=== PATIENT | male | born 1940 | race Caucasian/White ===

== ENCOUNTER → 2018-02-21 | Outpatient (CLI) | payer OTHER ==
--- NOTE | 2018-02-21 13:52 | FL ---
ESOPHOGRAM. HISTORY: Dysphagia Esophagram was performed per the air contrast technique. The patient swallowed barium and effervesce nt crystals without difficulty or delay. Esophageal peristalsis and motility appear to be within normal limits. There is no evidence for filling defect, mass or diverticulum. Small sliding-type hiatal hernia noted. Subsequently single contrast cervical esophagram was performed which fails demonstrate evidence for a spiration penetration or mass. IMPRESSION: Small sliding-type hiatal hernia noted.
== END | disposition home or self-care (01) ==
LOC: RADFLWHC 10:56
PROVIDERS: ATTEND Otolaryngology
DX: K44.9 Diaphragmatic hernia without obstruction or gangrene (principal)
CPT/HCPCS: 74220

== ENCOUNTER 2021-03-07 17:15 | Inpatient (IN) | payer OTHER, MEDICARE ==
[2021-03-07] MEDS ORDERED: LORazepam 2 MG/ML INJ IV PRN ×2 (17:51)
[2021-03-07] MEDS ORDERED: THIAMINE 100 MG/ML 2 ML VIAL IM STA (17:51)
[2021-03-07] MEDS ORDERED: NALOXONE 0.4 MG/ML 1 ML VIAL IV PRN (18:40)
--- NOTE | 2021-03-07 18:46 | ED ---
General Adult HPI - General Chief complaint: Extremity Problem,Nontraumatic Stated complaint: generalized swelling Time Seen by Provider: 03/07/21 17:40 Source: patient, EMS, RN notes reviewed, old records reviewed Mode of arrival: EMS Limitations: no limitations - History of Present Illness Initial comments: 80-year-old male transferred from outside facility with peripheral edema, scrotal edema abnormal laboratory testing. Patient has been living in his bed for the past one year. He drinks a proximally 6 ounces of vodka daily. He had presented once about 6 months ago with peripheral edema and was prescribed a short course of Lasix. He does not have chest pain. No dyspnea. He had presented to outside hospital with complaints of lower extremity edema and scrotal edema which is been present for the past one year. - Related Data Allergies Allergy/AdvReac Type Severity Reaction Status Date / Time No Known Allergies Allergy Verified 03/07/21 17:27 Review of Systems ROS Statement: Those systems with pertinent positive or pertinent negative responses have been documented in the HPI. ROS Other: All systems not noted in ROS Statement are negative. Past Medical History Past Medical History: Asthma History of Any Multi-Drug Resistant Organisms: None Reported Past Surgical History: No Surgical Hx Reported Past Psychological History: ADD/ADHD Smoking Status: Never smoker Past Alcohol Use History: Occasional Past Drug Use History: Marijuana General Exam Limitations: no limitations General appearance: alert, in no apparent distress Head exam: Present: atraumatic, normocephalic Eye exam: Present: normal appearance, PERRL ENT exam: Present: normal exam Neck exam: Present: normal inspection. Absent: tenderness, meningismus Respiratory exam: Present: normal lung sounds bilaterally. Absent: respiratory distress, wheezes, rales Cardiovascular Exam: Present: regular rate, normal rhythm GI/Abdominal exam: Present: distended. Absent: tenderness, guarding, rebound exam: Present: scrotal swelling Extremities exam: Present: pedal edema (3+ ) Neurological exam: Present: alert, oriented X3, CN II-XII intact. Absent: motor sensory deficit Skin exam: Present: warm, dry, intact Course Vital Signs 03/07/21 17:17 Temperature 99.0 F Pulse Rate 84 Respiratory 86 H Rate Blood Pressure 157/98 O2 Sat by Pulse 96 Oximetry Medical Decision Making - Medical Decision Making 80-year-old male sent for diuresis, possible social work consult for poor living conditions. He did have an elevated troponin without active chest pain. He was also sent for trended enzymes. He has a hemoglobin 10.9, sodium 142, potassium 4.5. His albumin and calcium were both low. He is given IV Lasix as well as thiamine. He's placed on Ativan according to withdrawal symptoms. He is admitted to Dr. ann for further evaluation and treatment. Repeat laboratory testing has been ordered. Disposition Clinical Impression: Failure to thrive in adult, Anasarca Disposition: ADMITTED IP TO THIS HOSP Condition: Stable Is patient prescribed a controlled substance at d/c from ED?: No Referrals: [facility] [Primary Care Provider] - 1-2 days Decision to Admit Reason: Admit from EC Decision Date: 03/07/21 Decision Time: 18:46
[2021-03-07 19:39] LABS: Basophils % (A) 0 %; Eosinophils % (A) 0 %; HCT 34.6 % (39.0-53.0); HGB 11.3 gm/dL (13.0-17.5); Lymphocytes # (A) 0.6 k/uL (1.0-4.8); Lymphocytes % (A) 9 %; MCHC 32.7 g/dL (31.0-37.0); Macrocytosis Marked; Mean Platelet Volume 9.1; Monocytes # (A) 0.6 k/uL (0-1.0); Monocytes % (A) 9 %; Neutrophils # (A) 4.9 k/uL (1.3-7.7); Neutrophils % (A) 79 %; Platelet Count 142 k/uL (150-450); RBC 3.15 m/uL (4.30-5.90); RDW 14.2 % (11.5-15.5); WBC 6.2 k/uL (3.8-10.6)
[2021-03-07 19:51] LABS: Albumin 2.4 g/dL (3.5-5.0); Calcium 7.4 mg/dL (8.4-10.2); Magnesium 1.8 mg/dL (1.6-2.3); Potassium 4.7 mmol/L (3.5-5.1); Total Bilirubin 1.2 mg/dL (0.2-1.3); Total Protein 5.3 g/dL (6.3-8.2)
[2021-03-07 19:52] LABS: INR 1.6 (<1.2); Prothrombin Time 16.1 sec (9.0-12.0)
[2021-03-07] MEDS: FUROSEMIDE 10 MG/ML 4 ML VIAL IV SCH (20:09)
[2021-03-07 20:18] LABS: Poikilocytosis (M) Present
[2021-03-07] MEDS: ALBUTEROL NEBULIZED 2.5 MG/3 ML INHALATION PRN (23:15)
[2021-03-07] MEDS: HEPARIN SODIUM,PORCINE/PF 5,000 UNIT/0.5 ML SYRINGE SQ SCH (23:58)
[2021-03-08 02:47] LABS: Appearance,Urine Clear (Clear); Bacteria,Urine Rare /hpf; Bilirubin,Urine Negative (Negative); Blood,Urine Large (Negative); Cellular Casts,Urine 1 /lpf (0); Color,Urine Yellow; Glucose,Urine (UA) Negative (Negative); Hyaline Casts,Urine 12 /lpf (0-2); Ketones,Urine Negative (Negative); Leukocyte Esterase,Urine Trace (Negative); Mucus,Urine Rare /hpf; Nitrite,Urine Negative (Negative); Protein,Urine Negative (Negative); RBC,Urine 40 /hpf (0-5); Specific Gravity,Urine 1.007 (1.001-1.035); Urobilinogen,Urine <2.0 mg/dL (<2.0); WBC,Urine 3 /hpf (0-5)
[2021-03-08] MEDS: LORazepam 2 MG/ML INJ IV PRN (05:09)
[2021-03-08 06:29] LABS: MCH 35.9 pg (25.0-35.0); MCHC 32.5 g/dL (31.0-37.0); MCV 110.4 fL (80.0-100.0); Macrocytosis Marked; Platelet Count 105 k/uL (150-450); RBC 2.63 m/uL (4.30-5.90); RDW 14.2 % (11.5-15.5); WBC 3.5 k/uL (3.8-10.6)
[2021-03-08 06:31] LABS: HGB 9.4 gm/dL (13.0-17.5)
[2021-03-08 06:54] LABS: Band Neutrophils % 1 %; Lymphocytes # (M) 0.39 k/uL (1.0-4.8); Neutrophils % (M) 71 %; Nucleated Red Blood Cells 0 /100 WBC (0-0); Total Cells Counted 100
[2021-03-08] MEDS: ALBUTEROL NEBULIZED 2.5 MG/3 ML INHALATION PRN (08:27)
[2021-03-08] MEDS: THIAMINE 100 MG TAB PO SCH ×2 (08:35→17:26)
[2021-03-08] MEDS: FAMOTIDINE 20 MG/2 ML VIAL IV SCH ×2 (08:35→20:21)
[2021-03-08] MEDS: FUROSEMIDE 10 MG/ML 4 ML VIAL IV SCH ×2 (08:37→20:21)
[2021-03-08] MEDS: HEPARIN SODIUM,PORCINE/PF 5,000 UNIT/0.5 ML SYRINGE SQ SCH ×2 (08:37→20:20)
--- NOTE | 2021-03-08 09:23 | P.HPIM ---
History of Present Illness This is a pleasant 80 years old male with past medical history of asthma Patient was transferred from [facility] for bilateral lower extremity swelling and edema and scrotal and penile swelling as well. Patient states that he presents because of diarrhea and generalized swelling including the scrotum which has been going on for the last 2 months but he could not specify what prompted him to come to emergency room today. Patient is bedbound for about a year, nonweightbearing, he told me last time he walked about 6 months ago. Also he does not follow up with [facility] and last Several Months Ago. that's Why Mainly He Eats Juices and liquids.. He lost weight 190 down to 150. He denies smoking or illicit drugs, he drinks 4 cups of liquor every day H cup about 4 ounces He denies depression or suicidal thoughts. Vitals are stable, he is slightly tachycardic with heart rate 98-101. Breathing rate 18, blood pressure 153/101. Oxygen saturation 96% on room air Labs showing WBC of 3.5, hemoglobin 11.3 and 9.4, platelet count 142 and 105, with some evidence of mild pancytopenia BMP is unremarkable. creatinine is 1.0. Troponin is slightly elevated at 0.05 and 0.05. ALT is 56, AST 176. Bilirubin is normal at 1.2. ProBNP is slightly elevated at 35-60. Urine analysis showing RBCs of 40, WBC of 3, negative nitrite and trace leukocyte esterase. On reviewing the records from [facility] he has WBC of 4.8, hemoglobin 10.9, platelets 156. 2, potassium 4.5. BUN is 10 and creatinine 1.0, glucose is 124. ALT 60 and ASD more elevated at 190. Bilirubin normal at 1.1. ProBNP is 3270 and troponin 0.05. Normal TSH at 1.5. Urine analysis showing 3+ blood in urine. Chest x-ray showing no acute process but limited quality. EKG shows sinus tachycardia and 105, poor R-wave progression and ST depression on aVL, QTC is 466. Review of Systems CONSTITUTIONAL: No fever, no malaise, no fatigue. HEENT: No recent visual problems or hearing problems. Denied any sore throat. CARDIOVASCULAR: No orthopnea, PND, no palpitations, no syncope. PULMONARY: No shortness of breath, no cough, no hemoptysis. GASTROINTESTINAL: no nausea, no vomiting, no abdominal pain. Normoactive bowel sounds. NEUROLOGICAL: No headaches, no weakness, no numbness. HEMATOLOGICAL: Denies any bleeding or petechiae. GENITOURINARY: Denies any burning micturition, frequency, or urgency. MUSCULOSKELETAL/RHEUMATOLOGICAL: Denies any joint pain, swelling, or any muscle pain. ENDOCRINE: Denies any polyuria or polydipsia. Past Medical History Past Medical History: Asthma History of Any Multi-Drug Resistant Organisms: None Reported Past Surgical History: No Surgical Hx Reported Past Psychological History: ADD/ADHD Smoking Status: Never smoker Past Alcohol Use History: Occasional Past Drug Use History: Marijuana Medications and Allergies Home Medications Medication Instructions Recorded Confirmed Type Albuterol Inhaler [Ventolin Hfa 1 puff INHALATION RT-QID PRN 03/07/21 03/07/21 History Inhaler] diphenhydrAMINE [Benadryl] 25 mg PO DAILY PRN 03/07/21 03/07/21 History guaiFENesin [guaiFENesin Oral 1 dose PO DAILY PRN 03/07/21 03/07/21 History Solution] Allergies Allergy/AdvReac Type Severity Reaction Status Date / Time No Known Allergies Allergy Verified 03/07/21 19:24 Physical Exam Vitals: Vital Signs Temp Pulse Resp BP Pulse Ox 03/08/21 02:00 98 18 153/101 96 03/07/21 23:35 101 H 18 147/82 98 03/07/21 23:25 100 03/07/21 23:16 99 03/07/21 23:00 102 H 18 153/88 100 03/07/21 18:26 108 H 18 161/79 96 03/07/21 17:17 99.0 F 84 86 H 157/98 96 Intake and Output 03/07/21 03/08/21 03/08/21 22:59 06:59 14:59 Other: Weight 68.039 kg -GENERAL: The patient is alert and oriented x3, not in any acute distress. Slow to respond to questions. Thin built with multiple nourished HEENT: Pupils are round and equally reacting to light. EOMI. No scleral icterus. No conjunctival pallor. Normocephalic, atraumatic. No pharyngeal erythema. No thyromegaly. CARDIOVASCULAR: S1 and S2 present. No murmurs, rubs, or gallops. PULMONARY: Chest is clear to auscultation, no wheezing or crackles. -ABDOMEN: Soft, nontender, distended, normoactive bowel sounds. No palpable organomegaly. MUSCULOSKELETAL: No joint swelling or deformity. -EXTREMITIES: No cyanosis, clubbing,. Bilateral patellar leg edema NEUROLOGICAL: Gross neurological examination did not reveal any focal deficits. SKIN: No rashes. No petechiae Results CBC & Chem 7: 03/08/21 05:31 03/07/21 19:32 Labs: Abnormal Lab Results - Last 24 Hours (Table) 03/07/21 03/07/21 03/07/21 Range/Units 19:32 19:32 19:32 WBC (3.8-10.6) k/uL RBC 3.15 L (4.30-5.90) m/uL Hgb 11.3 L (13.0-17.5) gm/dL Hct 34.6 L (39.0-53.0) % MCV 110.0 H (80.0-100.0) fL MCH 36.0 H (25.0-35.0) pg Plt Count 142 L (150-450) k/uL Lymphocytes # 0.6 L (1.0-4.8) k/uL Lymphocytes # (Manual) (1.0-4.8) k/uL Macrocytosis Marked A PT 16.1 H (9.0-12.0) sec INR 1.6 H (<1.2) Chloride 110 H (98-107) mmol/L Glucose 137 H (74-99) mg/dL Calcium 7.4 L (8.4-10.2) mg/dL AST 176 H (17-59) U/L ALT 56 H (4-49) U/L Troponin I (0.000-0.034) ng/mL Total Protein 5.3 L (6.3-8.2) g/dL Albumin 2.4 L (3.5-5.0) g/dL Urine Blood (Negative) Ur Leukocyte Esterase (Negative) Urine RBC (0-5) /hpf Urine Bacteria (None) /hpf Hyaline Casts (0-2) /lpf Urine Mucus (None) /hpf 03/07/21 03/08/21 03/08/21 Range/Units 19:32 01:03 02:28 WBC (3.8-10.6) k/uL RBC (4.30-5.90) m/uL Hgb (13.0-17.5) gm/dL Hct (39.0-53.0) % MCV (80.0-100.0) fL MCH (25.0-35.0) pg Plt Count (150-450) k/uL Lymphocytes # (1.0-4.8) k/uL Lymphocytes # (Manual) (1.0-4.8) k/uL Macrocytosis PT (9.0-12.0) sec INR (<1.2) Chloride (98-107) mmol/L Glucose (74-99) mg/dL Calcium (8.4-10.2) mg/dL AST (17-59) U/L ALT (4-49) U/L Troponin I 0.052 H* 0.058 H* (0.000-0.034) ng/mL Total Protein (6.3-8.2) g/dL Albumin (3.5-5.0) g/dL Urine Blood Large H (Negative) Ur Leukocyte Esterase Trace H (Negative) Urine RBC 40 H (0-5) /hpf Urine Bacteria Rare H (None) /hpf Hyaline Casts 12 H (0-2) /lpf Urine Mucus Rare H (None) /hpf 03/08/21 Range/Units 05:31 WBC 3.5 L (3.8-10.6) k/uL RBC 2.63 L (4.30-5.90) m/uL Hgb 9.4 L D (13.0-17.5) gm/dL Hct 29.0 L (39.0-53.0) % MCV 110.4 H (80.0-100.0) fL MCH 35.9 H (25.0-35.0) pg Plt Count 105 L (150-450) k/uL Lymphocytes # (1.0-4.8) k/uL Lymphocytes # (Manual) 0.39 L (1.0-4.8) k/uL Macrocytosis Marked A PT (9.0-12.0) sec INR (<1.2) Chloride (98-107) mmol/L Glucose (74-99) mg/dL Calcium (8.4-10.2) mg/dL AST (17-59) U/L ALT (4-49) U/L Troponin I (0.000-0.034) ng/mL Total Protein (6.3-8.2) g/dL Albumin (3.5-5.0) g/dL Urine Blood (Negative) Ur Leukocyte Esterase (Negative) Urine RBC (0-5) /hpf Urine Bacteria (None) /hpf Hyaline Casts (0-2) /lpf Urine Mucus (None) /hpf Assessment and Plan Assessment: - Anasarca, 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 Neurologic CHF - alcohol abuse at-risk of alcohol withdrawal - Mild hematuria - Elevated troponin - History of asthma, not an active issue - Hypertension - Mild pancytopenia, mostly secondary to alcohol affect - Mildly elevated liver enzymes, mostly secondary to alcohol affect, with ASD more than ALT - Malnutrition - Chronically bedbound Plan: This is a pleasant 80 years old male who presents with anasarca, alcohol abuse Continue with CIWA protocol and came in Lasix 40 mg twice daily . Fluid restriction 1200 mL per day We will check for C. diff, stool studies check vitamin B12 and folate. hemoglobin A1c We'll check abdominal ultrasound of her kidney, liver and possible ascites Check hepatitis panel Speech Therapist evaluation dietary consult for malnutrition Labs and medication were reviewed.. Continue same treatment. Continue with symptomatic treatment. Resume home medication. Monitor lytes and vitals. DVT and GI prophylaxis. Further recommendations depends on the clinical course of the patient DVT prophylaxis: Subcutaneous heparin GI Prophylaxis: Pepcid PT/OT: Pending Prognosis is guarded
[2021-03-08 09:44] LABS: INR 1.81 (0.90-1.11)
--- NOTE | 2021-03-08 10:52 | US ---
EXAMINATION TYPE: US abd limited kidneys/bladder DATE OF EXAM: 03/08/2021 COMPARISON: NONE CLINICAL HISTORY: liver , kid and possible ascites . EXAM MEASUREMENTS: Liver Length: 19 cm Gallbladder Wall: 0.8 cm CBD: 0.6 cm Right Kidney: 10.4 x 5.0 x 5.2 cm Left Kidney: 11.5 x 5.2 x 5.2 cm Pancreas: Obscured by bowel gas Liver: attenuating,measures large, somewhat limited visualization, multiple cysts largest measuring 2.8 x 2.5 x 3.3cm Gallbladder: thick edematous wall, no stones seen, limited views, anechoic area adjacent to GB, poss ible septated cyst vs other etiology CBD: wnl Right Kidney: wnl Left Kidney: cysts, largest measuring 1.9 x 2.4 x 1.7cm Bladder: not fully distended, limited views Mild ascites. IMPRESSION: 1. Hepatomegaly with underlying hepatic steatosis. Hepatic cysts noted as well. 2. Thick edematous gallbladder of uncertain etiology. 3. Mild ascites.
--- NOTE | 2021-03-08 10:57 | ECHOF ---
Referral Reason:Rule out heart disease MEASUREMENTS -------- HEIGHT: 180.3 cm WEIGHT: 68.0 kg BP: MV E Jose: 0.47 m/s MV DecT: 195 ms MV A Jose: 0.28 m/s MV E/A Ratio: 1.72 RAP: 5.00 mmHg RVSP: 19.79 mmHg FINDINGS -------- This was a technically difficult study with suboptimal views. Limited Study Overall left ventricular systolic function is low-normal with, an EF between 50 - 55 %. Right side appears enlarged. The left atrium was not well visualized. The right atrium was not well visualized. Lumason used The aortic valve was not well visualized. The mitral valve was not well visualized. The tricuspid valve was not well visualized. The pulmonic valve was not well visualized. There is a small, generalized pericardial effusion present. CONCLUSIONS -------- 1. Limited Study 2. Overall left ventricular systolic function is low-normal with, an EF between 50 - 55 %. 3. Right side appears enlarged. 4. There is a small, generalized pericardial effusion present. ZIPPER IRONER: Radha Cadena, [facility]
--- NOTE | 2021-03-08 11:06 | US ---
EXAMINATION TYPE: US venous doppler duplex LE BI DATE OF EXAM: 03/08/2021 10:29 AM COMPARISON: NONE CLINICAL HISTORY: leg swelling. SIDE PERFORMED: Bilateral TECHNIQUE: The lower extremity deep venous system is examined utilizing real time linear array sonog broderick with graded compression, doppler sonography and color-flow sonography. VESSELS IMAGED: Common Femoral Vein Deep Femoral Vein Greater Saphenous Vein * Femoral Vein Popliteal Vein Small Saphenous Vein * Proximal Calf Veins (* superficial vessels) Right Leg: Appears negative for DVT, extensive swelling. Left Leg: Appears negative for DVT, extensive swelling. IMPRESSION: No evidence of DVT
[2021-03-08 11:36] LABS: African American GFR (CKD) 83.2 (60.0-200.0); Albumin 2.1 g/dL (3.80-4.90); Anion Gap 4.2 mmol/L (4.00-12.00); Bilirubin, Conjugated 0.8 mg/dL (0.20-0.40); Bilirubin,Unconjugated 0.3 mg/dL; Calcium 6.8 mg/dL (8.7-10.3); Carbon Dioxide 26.8 mmol/L (21.6-31.8); Globulin 2.1 g/dL (1.6-3.3); Magnesium 1.6 mg/dL (1.5-2.4); Non-African American GFR(CKD) 71.8 (60.0-200.0); Potassium 4.3 mmol/L (3.5-5.5); Total Bilirubin 1.1 mg/dL (0.3-1.2); Total Protein 4.2 g/dL (6.2-8.2)
--- NOTE | 2021-03-08 12:05 | CONS ---
CONSULTATION CHIEF COMPLAINT: Leg edema. This is a 80-year-old gentleman who has not been eating very well and has problems swallowing food. He came into hospital complaining of bilateral leg edema. The patient initially presented to an outside hospital and has been transferred here. He has extensive edema, including the bilateral lower extremities and the scrotum. There is history of alcohol abuse and physically he is very inactive. He denies any chest pain. He denies any difficulty in breathing, palpitations. There is no prior history of coronary artery disease or congestive heart failure. There is no prior history of hypertension, diabetes, dyslipidemia. There is history of COPD. He is a smoker. At the time of my evaluation he appears comfortable, has covered his face with his shirt and not particularly communicative. There are NO KNOWN DRUG ALLERGIES. Medications include Benadryl, Ventolin and guaifenesin. FAMILY HISTORY: Negative for premature coronary artery disease. SOCIAL HISTORY: Negative for current smoking, EtOH abuse or drug abuse. REVIEW OF SYSTEMS: HEENT is unremarkable. CARDIAC: As described above. RESPIRATORY: As described above. GI: Negative. GENITOURINARY: Negative. ALLERGY/IMMUNOLOGY: Negative. SKIN: Negative. MUSCULOSKELETAL: Significant for arthritis. PSYCHOSOCIAL: Negative. ENDOCRINE: Negative. DERMATOLOGY: Negative. CONSTITUTIONAL: Negative. ONCOLOGICAL: Negative. CLINICAL BIOSTATISTICS DIRECTOR: Negative. Rest of the system review is not relevant. PHYSICAL EXAMINATION: He is afebrile. Heart rate is 90 beats per minute. Blood pressure is 120/76, respiratory rate 16. There is no jugular venous distention. Carotid upstroke is normal. There is no bruit. Chest exam reveals diminished air entry at the bases. I do not hear any crackles or rhonchi. Heart exam reveals first and second heart sounds, systolic murmur at the left lower sternal border. Abdomen is soft. Examination of extremities reveals bilateral 3+ pitting edema. LABS: Labs show that the hemoglobin is low at 9.4. INR is 1.6. Potassium is 4.7. Creatinine is 1. Troponins are mildly elevated at 0.05 and 0.05 without any definite pattern to them and BNP is elevated at 3560. His UA shows large amount of blood, nitrite negative. There are no WBCs. Urine protein is negative. Serum albumin is low at 2.4. ASSESSMENT: Generalized anasarca, probably due to a combination of problems, including hypoalbuminemia and possible congestive heart failure of undetermined etiology. He has coagulopathy probably related to poor nutrition, and the mild troponin elevation is of no clear clinical significance. He did not have a myocardial infarction of any kind. I do not have an EKG in the system. I am going to obtain one. PLAN: I am going to obtain a 2D echo to assess his LV function and wall motion, treat the patient with IV diuretic and decide on further course of action based on how he responds to therapy and what the echo shows. MMRUTHANNL / IJN: [id number] /
[2021-03-08 17:32] LABS: Hemoglobin A1C 4.3 % (4.0-6.0)
[2021-03-08 17:37] LABS: Hepatitis A Antibody IgM Non-Reactive (Non-Reactive); Hepatitis B Core IgM Non-Reactive (Non-Reactive); Hepatitis B Surface Antigen Non-Reactive (Non-Reactive); Hepatitis C IgG Antibody Non-Reactive (Non-Reactive)
--- NOTE | 2021-03-09 00:10 | XR ---
EXAMINATION TYPE: XR chest 1V DATE OF EXAM: 03/08/2021 COMPARISON: 03/07/2021 HISTORY: Short of breath TECHNIQUE: Single view FINDINGS: There is no heart failure nor confluent pneumonic infiltrate. Costophrenic angles are clear heart size is normal. There are no hilar masses. Bony thorax appears intact. There is old left clavi nyla probably healed fracture. IMPRESSION: No active cardiopulmonary disease. Normal heart. No change compared to yesterday.
[2021-03-09 00:20] LABS: Appearance,Urine Clear (Clear); Bilirubin,Urine Negative (Negative); Blood,Urine Moderate (Negative); Color,Urine Light Yellow; Glucose,Urine (UA) Negative (Negative); Hyaline Casts,Urine 46 /lpf (0-2); Ketones,Urine Negative (Negative); Leukocyte Esterase,Urine Negative (Negative); Mucus,Urine Rare /hpf; Nitrite,Urine Negative (Negative); Protein,Urine Negative (Negative); RBC,Urine 20 /hpf (0-5); Specific Gravity,Urine 1.006 (1.001-1.035); Urobilinogen,Urine <2.0 mg/dL (<2.0); WBC,Urine 1 /hpf (0-5)
[2021-03-09 06:32] LABS: Basophils % (A) 1 %; Eosinophils # (A) 0.1 k/uL (0-0.7); Eosinophils % (A) 4 %; HCT 26.4 % (39.0-53.0); HGB 8.7 gm/dL (13.0-17.5); Lymphocytes # (A) 0.5 k/uL (1.0-4.8); Lymphocytes % (A) 22 %; MCH 36.6 pg (25.0-35.0); MCV 110.6 fL (80.0-100.0); Macrocytosis Marked; Mean Platelet Volume 8.7; Monocytes # (A) 0.2 k/uL (0-1.0); Monocytes % (A) 10 %; Neutrophils # (A) 1.5 k/uL (1.3-7.7); Neutrophils % (A) 61 %; RBC 2.39 m/uL (4.30-5.90); RDW 14.2 % (11.5-15.5); WBC 2.4 k/uL (3.8-10.6)
[2021-03-09 08:31] LABS: Platelet Count 87 k/uL (150-450)
[2021-03-09] MEDS: FAMOTIDINE 20 MG/2 ML VIAL IV SCH ×2 (08:32→21:22)
[2021-03-09] MEDS: FUROSEMIDE 10 MG/ML 4 ML VIAL IV SCH ×2 (08:32→21:21)
[2021-03-09] MEDS: HEPARIN SODIUM,PORCINE/PF 5,000 UNIT/0.5 ML SYRINGE SQ SCH ×2 (08:32→21:22)
[2021-03-09] MEDS: THIAMINE 100 MG TAB PO SCH ×2 (08:32→17:53)
--- NOTE | 2021-03-09 09:04 | CDI ---
Documentation Clarification Form Date: 03/09/2021 09:01:26 AM From: Rebecca Raygoza RN, CCDS Admit Date: 03/07/2021 06:40:00 PM Patient Name: Jg Morrison Visit Number: [id number] ATTENTION: The Clinical Documentation Specialists (CDI) and [facility] Coding Staff appreciate your assistance in clarifying documentation. Please respond to the clarification below the line at the bottom and electronically sign. The CDI & [facility] Coding staff will review the response and follow-up if needed. Please note: Queries are made part of the Legal Health Record. If you have any questions, please contact the author of this message via ITS. Dr. Santana E Pat Malnutrition is documented in the 03/08 H&P. Additional clarification regarding the severity of malnutrition is requested. History/Risk Factors: ETOH, Smoker, COPD, ADD/ADHD Clinical Indicators: Current BMI: 21.5 Weight Loss: "He lost weight 190 down to 150." Loss of muscle mass: malnutrition, chronically bedbound" Fluid accumulation: generalized anasarca secondary the ETOH cirrhosis 03/07 ED Clinical Impression: Failure to thrive in an adult" 03/08 Cardiology Consult: "Generalized anasarca, probably due to a combination of problems, including hypoalbuminemia and possible congestive heart failure of undetermined etiology. He has coagulopathy probably related to poor nutrition, and the mild troponin elevation is of no clear clinical significance. He did not have a myocardial infarction of any kind." RD Consult Assessment: consult in place- not yet completed. Treatment: Dietary Consult Dysphagia Pureed diet Lab monitoring: Am Daily Please clarify the type of malnutrition, if known: [ ] Mild Protein-Calorie Malnutrition [ ] Moderate Protein-Calorie Malnutrition [ ] Severe Protein-Calorie Malnutrition [ ] Other condition, please specify [ ] Unable to Determine (Template Last Revised: August 2020) Severe Protein-Calorie Malnutrition MTDD
--- NOTE | 2021-03-09 09:12 | CDI ---
Documentation Clarification Form Date: 03/09/2021 09:04:24 AM From: Rebecca Raygoza RN, CCDS Admit Date: 03/07/2021 06:40:00 PM Patient Name: Jg Morrison Visit Number: [id number] ATTENTION: The Clinical Documentation Specialists (CDI) and [facility] Coding Staff appreciate your assistance in clarifying documentation. Please respond to the clarification below the line at the bottom and electronically sign. The CDI & [facility] Coding staff will review the response and follow-up if needed. Please note: Queries are made part of the Legal Health Record. If you have any questions, please contact the author of this message via ITS. Dr. Santana E Sheet Your patient has the documented diagnosis of unspecified CHF in the 03/08 H&P. Additional information regarding the type & acuity of CHF is requested. History/Risk Factors: Smoker, ETOH, COPD, ETOH Liver Cirrhosis, Pancytopenia, Malnutrition Clinical Indicators: 03/07 1717 Admission VS/Pulse OX: Temp 99, HR 84, RR 86, B/P 157/98, spo2 96% RA 03/08 BNP: 3560 03/08 Echocardiogram Results: EF 50-55%, right side enlarged 03/09 Chest X Ray: "No active cardiopulmonary disease. Normal heart. No change compared to yesterday." Treatment: Lasix 40 mg IVP Q 12 hrs. In your professional opinion, can you please clarify the acuity and type of CHF if known? [ ] Acute Diastolic Heart Failure (preserved EF) [ ] Chronic Diastolic Heart Failure (preserved EF) [ ] Acute on Chronic Diastolic Heart Failure (preserved EF) [ ] Acute Systolic & Diastolic Heart Failure [ ] Chronic Systolic & Diastolic Heart Failure [ ] Acute on Chronic Heart Failure Systolic & Diastolic Heart Failure [ ] Other, please specify [ ] Unable to determine (Template Last Revised: August 2020) no chf MTDD
[2021-03-09 10:07] LABS: African American GFR (CKD) 74.1 (60.0-200.0); Albumin 1.9 g/dL (3.80-4.90); Albumin/Globulin Ratio 0.95 (1.60-3.17); Anion Gap 3.2 mmol/L (4.00-12.00); BUN/Creat Ratio 11.82 Ratio (12.00-20.00); Calcium 6.7 mg/dL (8.7-10.3); Carbon Dioxide 26.8 mmol/L (21.6-31.8); Magnesium 1.6 mg/dL (1.5-2.4); Potassium 4.3 mmol/L (3.5-5.5); Total Bilirubin 0.9 mg/dL (0.3-1.2); Total Protein 3.9 g/dL (6.2-8.2)
[2021-03-09] MEDS ORDERED: PERMETHRIN 5% CREAM 60 GM TUBE TOPICAL ONE (11:25)
[2021-03-09] MEDS ORDERED: diphenhydrAMINE 25 MG CAP PO PRN (11:27)
--- NOTE | 2021-03-09 12:03 | P.PN ---
Subjective Progress Note Date: 03/09/21 HISTORY OF PRESENT ILLNESS: Patient examined this morning at the bedside. Patient is sitting up in the chair. He denies chest pain or pressure. He reports improvement in his shortn ess of breath. He reports improvement in his lower extremity edema but continues to have scrotal edema that he says is unchanged from yesterday. He remains on IV Lasix 40 mg every 12 hours. Echocardiogram completed revealed ejection fraction 50-55%. Small generalized pericardial effusion noted. PHYSICAL EXAM: VITAL SIGNS: Reviewed. GENERAL: Well-developed in no acute distress. NECK: Supple. No JVD or thyromegaly LUNGS: Respirations even and unlabored. Lungs diminished with expiratory wheezing noted. HEART: Regular rate and rhythm. S1 and S2 heard. EXTREMITIES: Normal range of motion. No clubbing or cyanosis. Peripheral pulses intact. No lower extremity edema ASSESSMENT: Generalized anasarca Acute diastolic heart failure, EF 50-55% Abnormal troponin, not suggestive of ACS PLAN: Patient is currently stable from a cardiac perspective May continue IV lasix today secondary to scrotal edema. Can transition to oral lasix tomorrow if edema improves. Will defer this to internal medicine We will sign off. Please reconsult if needed. Nurse practitioner note has been reviewed by physician. Signing provider agrees with the documented findings, assessment, and plan of care. Objective - Vital Signs Vital signs: Vital Signs Temp 98.6 F 03/09/21 04:27 Pulse 95 03/09/21 04:27 Resp 18 03/09/21 04:27 BP 152/93 03/09/21 04:27 Pulse Ox 96 03/09/21 04:27 Intake & Output 03/08/21 03/09/21 03/09/21 18:59 06:59 18:59 Intake Total 240 Output Total 860 Balance -620 Weight 68.039 kg Intake: Oral 240 Output: Urine 500 Post Void Residual 360 Other: Voiding Method Urinal Urinal Urinal Diaper Diaper Diaper Incontinent Incontinent Incontinent # Voids 1 # Bowel Movements 2 - Labs CBC & Chem 7: 03/09/21 05:51 03/09/21 05:51 Labs: Abnormal Lab Results - Last 24 Hours (Table) 03/08/21 03/08/21 03/08/21 Range/Units 05:31 13:09 Unknown WBC (3.8-10.6) k/uL RBC (4.30-5.90) m/uL Hgb (13.0-17.5) gm/dL Hct (39.0-53.0) % MCV (80.0-100.0) fL MCH (25.0-35.0) pg Plt Count (150-450) k/uL Lymphocytes # (1.0-4.8) k/uL Macrocytosis APTT (22.0-30.0) sec Chloride (96-109) mmol/L Anion Gap (4.00-12.00) mmol/L BUN/Creatinine Ratio (12.00-20.00) Ratio Calcium (8.7-10.3) mg/dL AST (14-35) U/L Troponin I 0.062 H* (0.000-0.034) ng/mL Total Protein (6.2-8.2) g/dL Albumin (3.80-4.90) g/dL Albumin/Globulin Ratio (1.60-3.17) g/dL Vitamin B12 1023.0 H (200.0-944.0) pg/mL Urine Blood Moderate H (Negative) Urine RBC 20 H (0-5) /hpf Hyaline Casts 46 H (0-2) /lpf Urine Mucus Rare H (None) /hpf 03/09/21 03/09/21 03/09/21 Range/Units 05:51 05:51 05:51 WBC 2.4 L (3.8-10.6) k/uL RBC 2.39 L (4.30-5.90) m/uL Hgb 8.7 L (13.0-17.5) gm/dL Hct 26.4 L (39.0-53.0) % MCV 110.6 H (80.0-100.0) fL MCH 36.6 H (25.0-35.0) pg Plt Count 87 L (150-450) k/uL Lymphocytes # 0.5 L (1.0-4.8) k/uL Macrocytosis Marked A APTT 34.5 H (22.0-30.0) sec Chloride 113 H (96-109) mmol/L Anion Gap 3.20 L (4.00-12.00) mmol/L BUN/Creatinine Ratio 11.82 L (12.00-20.00) Ratio Calcium 6.7 L (8.7-10.3) mg/dL AST 89 H (14-35) U/L Troponin I (0.000-0.034) ng/mL Total Protein 3.9 L (6.2-8.2) g/dL Albumin 1.90 L (3.80-4.90) g/dL Albumin/Globulin Ratio 0.95 L (1.60-3.17) g/dL Vitamin B12 (200.0-944.0) pg/mL Urine Blood (Negative) Urine RBC (0-5) /hpf Hyaline Casts (0-2) /lpf Urine Mucus (None) /hpf Microbiology - Last 24 Hours (Table) 03/08/21 12:45 Stool Culture - Preliminary Stool
[2021-03-09] MEDS: ALBUTEROL NEBULIZED 2.5 MG/3 ML INHALATION PRN (12:13)
--- NOTE | 2021-03-09 13:56 | FL ---
EXAMINATION TYPE: FL barium swallow w video DATE OF EXAM: 03/09/2021 MODIFIED SWALLOW / DEGLUTITION STUDY CLINICAL HISTORY: Dysphagia. History of dementia and confusion. TECHNIQUE: Deglutition study is attempted utilizing thin liquid barium, honey and nectar thick liqui d barium, barium thick applesauce, and barium coated cracker. A total of 2 minutes 24 seconds of fluo ro time and 0 images obtained. COMPARISON: Prior esophagram February 21, 2018. FINDINGS: The oral and pharyngeal phases show satisfactory initiation and propagation with all modali ties tested. Satisfactory mastication but patient has difficulty swallowing. When patient swallows m aterial there is satisfactory swallow but patient then coughed or vomiting up shoot up cracker. There is no evidence of penetration or aspiration with any modality tested. No significant pharyngeal res idue was appreciated. IMPRESSION: No penetration or aspiration observed. Please refer to speech therapist notes for furthe r details if necessary.
--- NOTE | 2021-03-09 14:25 | P.CONS ---
History of Present Illness - Reason for Consult Consult date: 03/09/21 Dysphagia, Diarrhea Requesting physician: Max E Sheet - Chief Complaint Peripheral edema, scrotal edema - History of Present Illness This is a 80-year-old white male who was transferred from [facility] with peripheral edema, scrotal edema,, and requesting Covid 19 vaccine. The patient has a past medical history of asthma and alcoholism. The patient admits to drinking at least 6 ounces of vodka daily. Patient states he has had lower extremity and scrotal edema for the past 1 year. He is also complaining of difficulty with swallowing for the last 2 years duration, which she states has gotten worse over the last several months. He states he is only on a clear liquid or soft diet. States he has lost approximately 40 pounds. He states that he try states solids it will get stuck in his esophagus for at least 1 hour. He states it becomes painful. He denies any vomiting associated with it. 2 years ago he underwent a modified barium swallow which showed only a small sliding hiatal hernia. He states he was then told to go to [place] for further evaluation and states he had a CT done and then was referred to a photography and prints curator to have an upper endoscopy done in [place]. The patient states however since Covid he would not go to [place] because it was a "hot spot for Covid." The patient has had no other follow-up, he follows with the [facility] and has not seen anybody in over 6 months. He states he is bedbound and does not get up and move. He states he lives alone with help. States he's been trying to get a Covid vaccine however has not been able to and is requesting one now. Patient denies any previous EGD or colonoscopy. Patient also states he is having diarrhea for the last 6 months duration which he states is yellow tinged, loose and small amounts, states he may have 4-5 a day. Denies any blood in his stool or black stool. He denies any abdominal pain, nausea, or vomiting. Current labs show WBC 2.4, hemoglobin 8.7, hematocrit 26.4, platelet count 87,000, INR 1.8, total bilirubin 0.9, AST 89, ALT 39, alkaline phosphatase 60. C. diff cytotoxin negative. Stool cultures pending. Patient states he will not proceed with any endoscopic evaluation during this admission has he first needs to get his Covid 19 vaccine. States he will follow-up with [facility] as previously scheduled. Barium swallow ordered, impression states no penetration or aspiration observed. Speech therapist report states patient demonstrated a functional oropharyngeal swallow; however repeatedly expectorated solid bolus during studies dating "I can't swallow "suspect confusional state may be contributing to difficulty. His hiatal hernia may also be a contributing factor. Recommend soft diet/thin liquids as tolerated. Review of Systems REVIEW OF SYSTEMS: CARDIOPULMONARY: No chest pain or shortness of breath. Peripheral edema, scrotal edema. Gastrointestinal: No abdominal pain. No nausea or vomiting. No hematemesis, coffee-ground emesis. No rectal bleeding, or melena. Loose stools daily, 4-5 a day. GENITOURINARY: No dysuria or hematuria. MUSCULOSKELETAL: Reports normal range of motion., Joint pain. SKIN: No rashes. No jaundice. ENDOCRINE: No chills, fevers. No excessive weight gain or loss. No polydipsia or polyuria. PSYCHIATRIC: Unremarkable. NEUROLOGY: No change in mental status. Denies dizziness, headache. ENT: Vision unremarkable. CONSTITUTIONAL: Weight loss approximately 40-50 pounds in the last 1 year. No fever, chills, night sweats. Past Medical History Past Medical History: Asthma, Hypertension, Pneumonia Additional Past Medical History / Comment(s): falls, ETOH-pt reports drinking 6oz to 1 pint of Vodka/day. History of Any Multi-Drug Resistant Organisms: None Reported Past Surgical History: Hernia Repair, Orthopedic Surgery Additional Past Surgical History / Comment(s): left rotator cuff repair Smoking Status: Never smoker - Past Family History Father Additional Family Medical History / Comment(s): none Medications and Allergies Home Medications Medication Instructions Recorded Confirmed Type Albuterol Inhaler [Ventolin Hfa 1 puff INHALATION RT-QID PRN 03/07/21 03/07/21 History Inhaler] diphenhydrAMINE [Benadryl] 25 mg PO DAILY PRN 03/07/21 03/07/21 History guaiFENesin [guaiFENesin Oral 1 dose PO DAILY PRN 03/07/21 03/07/21 History Solution] Allergies Allergy/AdvReac Type Severity Reaction Status Date / Time No Known Allergies Allergy Verified 03/07/21 19:24 Physical Exam Vitals: Vital Signs Temp Pulse Pulse Resp BP Pulse Ox 03/09/21 12:13 80 03/09/21 11:59 97.5 F L 88 17 137/79 95 03/09/21 04:27 98.6 F 95 18 152/93 96 03/08/21 19:45 98.2 F 97 18 139/81 98 03/08/21 16:05 98.2 F 101 H 20 169/93 94 L 03/08/21 14:07 82 132/76 96 Intake and Output 03/08/21 03/09/21 03/09/21 22:59 06:59 14:59 Intake Total 240 Output Total 200 660 Balance -200 -420 Intake: Oral 240 Output: Urine 200 300 Post Void Residual 360 Other: Voiding Method Urinal Urinal Diaper Diaper Incontinent Incontinent # Voids 1 # Bowel Movements 2 Weight 68.039 kg General appearance: The patient is alert, oriented, appears in no acute distress. HET: Head is normocephalic and atraumatic. Conjunctiva pink. Sclera anicteric. Neck: Supple without lymphadenopathy. Trachea midline. Heart: S1 S2. Regular rate and rhythm. Lungs: Diminished. Abdomen: Soft, nontender, anasarca, bowel sounds present. No guarding or rigidity. Skin: No rashes. No jaundice. Extremities: Normal skin color and turgor. +2 pedal edema Neurological: No focal deficits. Alert and oriented 3.. Results CBC & Chem 7: 03/09/21 05:51 03/09/21 05:51 Labs: Abnormal Lab Results - Last 24 Hours (Table) 03/08/21 03/08/21 03/08/21 Range/Units 05:31 13:09 Unknown WBC (3.8-10.6) k/uL RBC (4.30-5.90) m/uL Hgb (13.0-17.5) gm/dL Hct (39.0-53.0) % MCV (80.0-100.0) fL MCH (25.0-35.0) pg Plt Count (150-450) k/uL Lymphocytes # (1.0-4.8) k/uL Macrocytosis APTT (22.0-30.0) sec Chloride (96-109) mmol/L Anion Gap (4.00-12.00) mmol/L BUN/Creatinine Ratio (12.00-20.00) Ratio Calcium (8.7-10.3) mg/dL AST (14-35) U/L Troponin I 0.062 H* (0.000-0.034) ng/mL Total Protein (6.2-8.2) g/dL Albumin (3.80-4.90) g/dL Albumin/Globulin Ratio (1.60-3.17) g/dL Vitamin B12 1023.0 H (200.0-944.0) pg/mL Urine Blood Moderate H (Negative) Urine RBC 20 H (0-5) /hpf Hyaline Casts 46 H (0-2) /lpf Urine Mucus Rare H (None) /hpf 03/09/21 03/09/21 03/09/21 Range/Units 05:51 05:51 05:51 WBC 2.4 L (3.8-10.6) k/uL RBC 2.39 L (4.30-5.90) m/uL Hgb 8.7 L (13.0-17.5) gm/dL Hct 26.4 L (39.0-53.0) % MCV 110.6 H (80.0-100.0) fL MCH 36.6 H (25.0-35.0) pg Plt Count 87 L (150-450) k/uL Lymphocytes # 0.5 L (1.0-4.8) k/uL Macrocytosis Marked A APTT 34.5 H (22.0-30.0) sec Chloride 113 H (96-109) mmol/L Anion Gap 3.20 L (4.00-12.00) mmol/L BUN/Creatinine Ratio 11.82 L (12.00-20.00) Ratio Calcium 6.7 L (8.7-10.3) mg/dL AST 89 H (14-35) U/L Troponin I (0.000-0.034) ng/mL Total Protein 3.9 L (6.2-8.2) g/dL Albumin 1.90 L (3.80-4.90) g/dL Albumin/Globulin Ratio 0.95 L (1.60-3.17) g/dL Vitamin B12 (200.0-944.0) pg/mL Urine Blood (Negative) Urine RBC (0-5) /hpf Hyaline Casts (0-2) /lpf Urine Mucus (None) /hpf Microbiology - Last 24 Hours (Table) 03/08/21 12:45 Stool Culture - Preliminary Stool Assessment and Plan (1) Dysphagia Narrative/Plan: 80-year-old male who was a transfer to our emergency department from outside facility for generalized anasarca and shortness of breath. Gastroenterology was consulted for complaints of dysphagia for the last 2 years duration, patient states he is unable to swallow solids without becoming stuck. Patient denies any nausea or vomiting. States he is only taking in liquids and soft foods. States he has had a weight loss of 40-50 pounds in the last 1 year duration. He has had a modified barium swallow 2 years ago that showed a small sliding hiatal hernia, he underwent barium swallow this admission showing no penetration or aspiration observed. Speech therapy evaluated patient and states they believe he has got swelling due to confusion otherwise they recommend soft diet. Patient states he had some workup done in [facility] 2 years ago and was referred to a photography and prints curator in [place] and was scheduled to undergo an EGD, however due to covert he canceled his appointment. He states he wants to get his COVID-19 vaccine however is having difficulty getting it. States he does not want any EGD or colonoscopy until he is is vaccinated, and will plan on following up with original photography and prints curator out of [place]. He does complain of acid reflux, does not take any medications regularly for it. He does not follow-up regular with his PCP. He denies any previous EGD or colonoscopy. Recommending EGD and colonoscopy, however patient is refusing at this time. Current Visit: Yes Status: Acute Code(s): R13.10 - DYSPHAGIA, UNSPECIFIED SNOMED Code(s): 91124541 (2) Diarrhea Narrative/Plan: Complaints of small amounts of diarrhea daily, up to 4-5 episodes a day. Describes them as loose, yellow, nonbloody and no black stools noted. Patient has not had previous colonoscopy and is currently refusing. C. difficile toxin negative, stool cultures are pending. Will order giardia and crytpsporidium. Can add Imodium as needed. Discussed with patient recommended EGD and colonoscopy, however patient is refusing at this time. Current Visit: Yes Status: Acute Code(s): R19.7 - DIARRHEA, UNSPECIFIED SNOMED Code(s): 06368832 Plan: 1. Continue symptomatic and supportive care 2. Diabetes tolerated and recommended per speech therapy 3. Protonix 40 mg daily 4. Will add Imodium as needed 5. Giardia and cryptosporidum ordered 6. Stool culture pending, C. diff negative 7. Barium swallow and speech therapy notes reviewed 8. Discuss with patient EGD and colonoscopy, recommended. Patient refusing at this time. Patient wants to follow-up with photography and prints curator in [place] after he is vaccinated. Thank you for this consultation, we will continue to follow. Dr. Hui Cheatham I agree with the dictator's note, documented as a scribe by Karolina Mondragon.
--- NOTE | 2021-03-09 15:48 | P.PN ---
Subjective Progress Note Date: 03/09/21 80-year-old male whom we are asked to see for scrotal edema and hematuria. He was transferred from an outside facility for the scrotal and lower extremity edema. This patient is 80 and probably an alcoholic. He drinks at least 6 ounces of vodka probably closer to 10 ounces per day. He apparently for the last couple months as had significant lower extremity and scrotal edema. He states that since he has been at bed rest with elevated legs the edema has subsided significantly. He denies any trauma. There is no injury. There is no dysuria. There is no erythema or scrotal bruising. On laboratory examination the patient has elevated liver function. He has low total protein and albumin. This is all consistent with a poor diet and probable alkaline some. His liver is enlarged on ultrasound. He also was asked to see for microscopic hematuria. There is no gross hematuria. He has no problems urinating. There is no history of stones. There's been no gross blood. No evidence of infection. The ultrasound of the kidneys are normal. Objective - Vital Signs Vital signs: Vital Signs Temp 97.5 F L 03/09/21 11:59 Pulse 80 03/09/21 12:22 Resp 17 03/09/21 11:59 BP 137/79 03/09/21 11:59 Pulse Ox 95 03/09/21 11:59 Intake & Output 03/08/21 03/09/21 03/09/21 18:59 06:59 18:59 Intake Total 240 Output Total 860 Balance -620 Weight 68.039 kg 68.039 kg Intake: Oral 240 Output: Urine 500 Post Void Residual 360 Other: Voiding Method Urinal Urinal Urinal Diaper Diaper Diaper Incontinent Incontinent Incontinent # Voids 1 # Bowel Movements 2 - Constitutional General appearance: Present: average body habitus, disheveled, mild distress - EENT Eyes: Present: poor dentition - Neck Neck: Present: normal ROM - Cardiovascular Rhythm: regular - Gastrointestinal General gastrointestinal: Present: hepatomegaly - Genitourinary Genitourinary Comment(s): Mild scrotal edema. - Neurologic Neurologic: Present: CNII-XII intact - Musculoskeletal Musculoskeletal Comment(s): The patient has lower extremity edema up into the thighs. He has mild scrotal edema at this point in time. - Labs CBC & Chem 7: 03/09/21 05:51 03/09/21 05:51 Labs: Abnormal Lab Results - Last 24 Hours (Table) 03/08/21 03/09/21 03/09/21 Range/Units Unknown 05:51 05:51 WBC 2.4 L (3.8-10.6) k/uL RBC 2.39 L (4.30-5.90) m/uL Hgb 8.7 L (13.0-17.5) gm/dL Hct 26.4 L (39.0-53.0) % MCV 110.6 H (80.0-100.0) fL MCH 36.6 H (25.0-35.0) pg Plt Count 87 L (150-450) k/uL Lymphocytes # 0.5 L (1.0-4.8) k/uL Macrocytosis Marked A APTT 34.5 H (22.0-30.0) sec Chloride (96-109) mmol/L Anion Gap (4.00-12.00) mmol/L BUN/Creatinine Ratio (12.00-20.00) Ratio Calcium (8.7-10.3) mg/dL AST (14-35) U/L Total Protein (6.2-8.2) g/dL Albumin (3.80-4.90) g/dL Albumin/Globulin Ratio (1.60-3.17) g/dL Urine Blood Moderate H (Negative) Urine RBC 20 H (0-5) /hpf Hyaline Casts 46 H (0-2) /lpf Urine Mucus Rare H (None) /hpf 03/09/21 Range/Units 05:51 WBC (3.8-10.6) k/uL RBC (4.30-5.90) m/uL Hgb (13.0-17.5) gm/dL Hct (39.0-53.0) % MCV (80.0-100.0) fL MCH (25.0-35.0) pg Plt Count (150-450) k/uL Lymphocytes # (1.0-4.8) k/uL Macrocytosis APTT (22.0-30.0) sec Chloride 113 H (96-109) mmol/L Anion Gap 3.20 L (4.00-12.00) mmol/L BUN/Creatinine Ratio 11.82 L (12.00-20.00) Ratio Calcium 6.7 L (8.7-10.3) mg/dL AST 89 H (14-35) U/L Total Protein 3.9 L (6.2-8.2) g/dL Albumin 1.90 L (3.80-4.90) g/dL Albumin/Globulin Ratio 0.95 L (1.60-3.17) g/dL Urine Blood (Negative) Urine RBC (0-5) /hpf Hyaline Casts (0-2) /lpf Urine Mucus (None) /hpf Microbiology - Last 24 Hours (Table) 03/08/21 12:45 Stool Culture - Preliminary Stool - Imaging and Cardiology US - abdomen: report reviewed, image reviewed Assessment and Plan Assessment: Impression: Scrotal and lower extremity edema due to hypoalbuminemia probably secondary to poor nutrition and excessive alcohol abuse. Microscopic hematuria of indeterminate etiology Recommendation: There is nothing urologic that I can do for the scrotal edema. The patient needs improved nutrition and to stop drinking. His has been discussed with him. He should have a cystoscopy as an outpatient.
--- NOTE | 2021-03-09 20:28 | P.PN ---
Subjective This is a pleasant 80 years old male with past medical history of asthma Patient was transferred from [facility] for bilateral lower extremity swelling and edema and scrotal and penile swelling as well. Patient states that he presents because of diarrhea and generalized swelling including the scrotum which has been going on for the last 2 months but he could not specify what prompted him to come to emergency room today. Patient is bedbound for about a year, nonweightbearing, he told me last time he walked about 6 months ago. Also he does not follow up with his [facility] doctor and last Several Months Ago. that's Why Mainly He Eats Juices and liquids.. He lost weight 190 down to 150. He denies smoking or illicit drugs, he drinks 4 cups of liquor every day H cup about 4 ounces He denies depression or suicidal thoughts. Vitals are stable, he is slightly tachycardic with heart rate 98-101. Breathing rate 18, blood pressure 153/101. Oxygen saturation 96% on room air Labs showing WBC of 3.5, hemoglobin 11.3 and 9.4, platelet count 142 and 105, with some evidence of mild pancytopenia BMP is unremarkable. creatinine is 1.0. Troponin is slightly elevated at 0.05 and 0.05. ALT is 56, AST 176. Bilirubin is normal at 1.2. ProBNP is slightly elevated at 35-60. Urine analysis showing RBCs of 40, WBC of 3, negative nitrite and trace leukocyte esterase. On reviewing the records from [facility] he has WBC of 4.8, hemoglobin 10.9, platelets 156. 2, potassium 4.5. BUN is 10 and creatinine 1.0, glucose is 124. ALT 60 and ASD more elevated at 190. Bilirubin normal at 1.1. ProBNP is 3270 and troponin 0.05. Normal TSH at 1.5. Urine analysis showing 3+ blood in urine. Chest x-ray showing no acute process but limited quality. EKG shows sinus tachycardia and 105, poor R-wave progression and ST depression on aVL, QTC is 466. 03/09/21 Patient awake alert, no dyspnea, no chest pain. He still have significant swelling in lower extremity and scrotum but that not associated with any shortness of breath and his Vitas looks stable. He has itching and some rash and excoriation antibiotic in the lower legs. Still looks like some fungal rash in the groins No scrotal tenderness. Neurologist evaluated the patient and recommended cystoscopy as an outpatient for his microscopic hematuria He still complaining of from choking although he presents well evaluation yesterday and we advance diet, we didn't barium swallow evaluation and it was negative. I team recommended EGD/colonoscopy however patient declined and wants to follow up with [facility] His pancytopenia is a slightly worse today. However his platelet still 87 which is above 50 K therefore we kept him on heparin and wth close monitoring. His A1c is 4.3, para test panel is negative. Liver enzymes are slightly better. Ejection fraction 50-55%. Ultrasound of the leg is negative for DVT. [employer] recommended no further workup Stool wbc is also negative today. He is kept on CIWA score of 8-4 today. Physical therapy recommended subacute rehab. I discussed the case with high school social studies tutor who informed the adult protective services about him, we cannot get guardianship for him because he is fully awake and oriented. Patient has capacity to make decisions for himself. We provided permethrin and nystatin for his rash Objective - Vital Signs Vital signs: Vital Signs Temp 97.5 F L 03/09/21 11:59 Pulse 80 03/09/21 12:22 Resp 17 03/09/21 11:59 BP 137/79 03/09/21 11:59 Pulse Ox 95 03/09/21 11:59 Intake & Output 03/08/21 03/09/21 03/09/21 18:59 06:59 18:59 Intake Total 240 Output Total 860 Balance -620 Weight 68.039 kg Intake: Oral 240 Output: Urine 500 Post Void Residual 360 Other: Voiding Method Urinal Urinal Urinal Diaper Diaper Diaper Incontinent Incontinent Incontinent # Voids 1 # Bowel Movements 2 - Exam GENERAL: The patient is alert and oriented x3, not in any acute distress. Well developed, well nourished. HEENT: Pupils are round and equally reacting to light. EOMI. No scleral icterus. No conjunctival pallor. Normocephalic, atraumatic. No pharyngeal erythema. No thyromegaly. CARDIOVASCULAR: S1 and S2 present. No murmurs, rubs, or gallops. PULMONARY: Chest is clear to auscultation, no wheezing or crackles. -ABDOMEN: Soft, nontender, nondistended, normoactive bowel sounds. No palpable organomegaly. Tegretol swelling with no tenderness MUSCULOSKELETAL: No joint swelling or deformity. -EXTREMITIES: No cyanosis, clubbing, or bilateral pitting leg edema NEUROLOGICAL: Gross neurological examination did not reveal any focal deficits. -SKIN: Bilateral fungal rash in the groin, other rash with some excoriation in both buttocks and lower legs associated with itching. no petechiae. - Labs CBC & Chem 7: 03/09/21 05:51 03/09/21 05:51 Labs: Abnormal Lab Results - Last 24 Hours (Table) 03/08/21 03/08/21 03/08/21 Range/Units 05:31 13:09 Unknown WBC (3.8-10.6) k/uL RBC (4.30-5.90) m/uL Hgb (13.0-17.5) gm/dL Hct (39.0-53.0) % MCV (80.0-100.0) fL MCH (25.0-35.0) pg Plt Count (150-450) k/uL Lymphocytes # (1.0-4.8) k/uL Macrocytosis APTT (22.0-30.0) sec Chloride (96-109) mmol/L Anion Gap (4.00-12.00) mmol/L BUN/Creatinine Ratio (12.00-20.00) Ratio Calcium (8.7-10.3) mg/dL AST (14-35) U/L Troponin I 0.062 H* (0.000-0.034) ng/mL Total Protein (6.2-8.2) g/dL Albumin (3.80-4.90) g/dL Albumin/Globulin Ratio (1.60-3.17) g/dL Vitamin B12 1023.0 H (200.0-944.0) pg/mL Urine Blood Moderate H (Negative) Urine RBC 20 H (0-5) /hpf Hyaline Casts 46 H (0-2) /lpf Urine Mucus Rare H (None) /hpf 03/09/21 03/09/21 03/09/21 Range/Units 05:51 05:51 05:51 WBC 2.4 L (3.8-10.6) k/uL RBC 2.39 L (4.30-5.90) m/uL Hgb 8.7 L (13.0-17.5) gm/dL Hct 26.4 L (39.0-53.0) % MCV 110.6 H (80.0-100.0) fL MCH 36.6 H (25.0-35.0) pg Plt Count 87 L (150-450) k/uL Lymphocytes # 0.5 L (1.0-4.8) k/uL Macrocytosis Marked A APTT 34.5 H (22.0-30.0) sec Chloride 113 H (96-109) mmol/L Anion Gap 3.20 L (4.00-12.00) mmol/L BUN/Creatinine Ratio 11.82 L (12.00-20.00) Ratio Calcium 6.7 L (8.7-10.3) mg/dL AST 89 H (14-35) U/L Troponin I (0.000-0.034) ng/mL Total Protein 3.9 L (6.2-8.2) g/dL Albumin 1.90 L (3.80-4.90) g/dL Albumin/Globulin Ratio 0.95 L (1.60-3.17) g/dL Vitamin B12 (200.0-944.0) pg/mL Urine Blood (Negative) Urine RBC (0-5) /hpf Hyaline Casts (0-2) /lpf Urine Mucus (None) /hpf Microbiology - Last 24 Hours (Table) 03/08/21 12:45 Stool Culture - Preliminary Stool Assessment and Plan Assessment: - Anasarca, 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 - alcohol abuse associated with alcohol withdrawal - Mild microscopic hematuria, cystoscopy recommended as an outpatient - Elevated troponin. Unrelated to heart disease. [employer] signed off - History of asthma, not an active issue - Hypertension - Mild pancytopenia, mostly secondary to alcohol affect . - Mildly elevated liver enzymes, mostly secondary to alcohol affect, with ASD more than ALT. Improving - Malnutrition. Severe coronary protein malnutrition - Chronically bedbound - Deconditioning and bad self hygiene Plan: This is a pleasant 80 years old male who presents with anasarca, alcohol abuse Continue with CIWA protocol and Ativan as needed as well as thiamine Lasix 40 mg twice daily . Fluid restriction 1200 mL per day Patient declined EGD/colonoscopy, recommend follow-up as an outpatient with his GI office in [place] Cystoscopy as an outpatient for microscopic hematuria Recommend subacute rehab upon discharge Added ensure Monitor for pancytopenia Labs and medication were reviewed.. Continue same treatment. Continue with symptomatic treatment. Resume home medication. Monitor lytes and vitals. DVT and GI prophylaxis. Further recommendations depends on the clinical course of the patient DVT prophylaxis: Subcutaneous heparin GI Prophylaxis: Pepcid PT/OT: OSIEL Prognosis is guarded
[2021-03-09] MEDS: NYSTATIN 100,000UNIT/GM CREAM 30 GM TUBE TOPICAL SCH (21:30)
[2021-03-10 07:14] LABS: Basophils % (A) 1 %; Eosinophils % (A) 2 %; HCT 27.7 % (39.0-53.0); HGB 9.2 gm/dL (13.0-17.5); Lymphocytes # (A) 0.5 k/uL (1.0-4.8); Lymphocytes % (A) 24 %; MCH 36.4 pg (25.0-35.0); MCHC 33.2 g/dL (31.0-37.0); MCV 109.5 fL (80.0-100.0); Macrocytosis Marked; Mean Platelet Volume 9.2; Monocytes # (A) 0.2 k/uL (0-1.0); Monocytes % (A) 11 %; Neutrophils # (A) 1.2 k/uL (1.3-7.7); Neutrophils % (A) 60 %; Platelet Count 107 k/uL (150-450); RBC 2.53 m/uL (4.30-5.90); RDW 14.1 % (11.5-15.5)
[2021-03-10] MEDS: ALBUTEROL NEBULIZED 2.5 MG/3 ML INHALATION PRN ×2 (07:31→11:21)
[2021-03-10] MEDS: THIAMINE 100 MG TAB PO SCH ×2 (08:21→17:13)
[2021-03-10] MEDS: FAMOTIDINE 20 MG/2 ML VIAL IV SCH (10:22)
[2021-03-10] MEDS: FUROSEMIDE 10 MG/ML 4 ML VIAL IV SCH ×2 (10:24→20:59)
[2021-03-10] MEDS: HEPARIN SODIUM,PORCINE/PF 5,000 UNIT/0.5 ML SYRINGE SQ SCH ×2 (11:12→20:59)
[2021-03-10] MEDS ORDERED: PROPOFOL 10 MG/ML 20 ML VIAL IV ONE (12:37)
[2021-03-10] MEDS ORDERED: LIDOCAINE 1% INJ 10MG/ML (20 ML MDV) ONE (12:37)
[2021-03-10] MEDS ORDERED: SODIUM CHLORIDE 0.9% 500 ML 500 ML IV ONE (12:48)
--- NOTE | 2021-03-10 12:50 | P.PCN ---
Date of Procedure: 03/10/21 Procedure(s) Performed: BRIEF HISTORY: Patient is a 80-year-old, pleasant, male scheduled for an upper endoscopy as a part of evaluation of intermittent dysphagia to solids for the last several months duration. Recent barium swallow was unremarkable. PROCEDURE PERFORMED: Esophagogastroduodenoscopy with biopsy . PREOPERATIVE DIAGNOSIS: Progressive dysphagia to solids of several months duration IV sedation per anesthesia. PROCEDURE: After informed consent was obtained, the patient was brought into the endoscopy unit. IV sedation was administered by Anesthesia under continuous monitoring. Initially the Olympus GIF-140 video endoscope was inserted into the mouth. Esophagus intubated without any difficulty. It was gradually advanced into the stomach and duodenum and carefully examined. The bulb and the second part of the duodenum appeared normal. The scope at this time was withdrawn to the stomach, adequately insufflated with air, and upon careful examination, mucosa of the antrum, body, cardia and the fundus appeared normal. The scope was then withdrawn into the esophagus. was a moderate size hiatal hernia noted. The GE junction was located at 35 cm from the incisors. there was a long segment of Dooley's esophagus extending from 28-35 cm from the incisors and multiple biopsies were done from the segment of Dooley's esophagus. Just proximal to the Dooley's esophagus there was evidence of linear erosions consistent with LA grade B reflux esophagitis. There was no esophageal stricture noted. The rest of the esophagus appeared normal and the patient tolerated the procedure well. Impression: 1. 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 2. Linear erosions proximal to the Dooley's esophagus consistent with LA grade B reflux esophagitis 3. No evidence of esophageal stricture. 4. Moderate size hiatal hernia. RECOMMENDATIONS: The findings of this examination were discussed with the patient . He'll be started on Protonix 40 mg twice daily. Follow with the biopsy results. If the biopsy results evidence of Dooley's esophagus he can have a repeat surveillance upper endoscopy in 3 years..
[2021-03-10 13:26] LABS: African American GFR (CKD) 66.7 (60.0-200.0); Albumin 2.1 g/dL (3.80-4.90); Anion Gap 7.6 mmol/L (4.00-12.00); BUN/Creat Ratio 12.5 Ratio (12.00-20.00); Bilirubin, Conjugated 0.7 mg/dL (0.20-0.40); Bilirubin,Unconjugated 0.2 mg/dL; Carbon Dioxide 26.4 mmol/L (21.6-31.8); Globulin 2.1 g/dL (1.6-3.3); Magnesium 1.7 mg/dL (1.5-2.4); Non-African American GFR(CKD) 57.6 (60.0-200.0); Potassium 3.9 mmol/L (3.5-5.5); Total Bilirubin 0.9 mg/dL (0.3-1.2); Total Protein 4.2 g/dL (6.2-8.2)
[2021-03-10] MEDS: NYSTATIN 100,000UNIT/GM CREAM 30 GM TUBE TOPICAL SCH ×2 (14:39→21:04)
[2021-03-10] MEDS: PANTOPRAZOLE 40 MG TABLET PO SCH (17:13)
[2021-03-10] MEDS: LORazepam 2 MG/ML INJ IV PRN (19:48)
[2021-03-10 20:39] LABS: Basophils % (A) 1 %; Eosinophils % (A) 1 %; HCT 31.4 % (39.0-53.0); HGB 10.4 gm/dL (13.0-17.5); Lymphocytes # (A) 0.5 k/uL (1.0-4.8); Lymphocytes % (A) 19 %; MCH 35.8 pg (25.0-35.0); MCHC 33.2 g/dL (31.0-37.0); MCV 107.9 fL (80.0-100.0); Macrocytosis Moderate; Mean Platelet Volume 9.1; Monocytes # (A) 0.3 k/uL (0-1.0); Monocytes % (A) 12 %; Neutrophils # (A) 1.7 k/uL (1.3-7.7); Neutrophils % (A) 65 %; Platelet Count 125 k/uL (150-450); RBC 2.91 m/uL (4.30-5.90); WBC 2.6 k/uL (3.8-10.6)
[2021-03-10 20:44] LABS: African American GFR (CKD) 60 (>60 ml/min/1.73 sqM); Anion Gap 5 mmol/L; Blood Urea Nitrogen 15 mg/dL (9-20); Calcium 7.4 mg/dL (8.4-10.2); Carbon Dioxide 25 mmol/L (22-30); Chloride 108 mmol/L (98-107); Glucose 103 mg/dL (74-99); Magnesium 1.7 mg/dL (1.6-2.3); Non-African American GFR(CKD) 52 (>60 ml/min/1.73 sqM); Sodium 138 mmol/L (137-145)
[2021-03-10] MEDS: DILTIAZEM 125 MG in SODIUM CHLORIDE 0.9% 100 ML IV SCH (20:47)
--- NOTE | 2021-03-10 21:55 | P.PN ---
Subjective This is a pleasant 80 years old male with past medical history of asthma Patient was transferred from [facility] for bilateral lower extremity swelling and edema and scrotal and penile swelling as well. Patient states that he presents because of diarrhea and generalized swelling including the scrotum which has been going on for the last 2 months but he could not specify what prompted him to come to emergency room today. Patient is bedbound for about a year, nonweightbearing, he told me last time he walked about 6 months ago. Also he does not follow up with his [facility] doctor and last Several Months Ago. that's Why Mainly He Eats Juices and liquids.. He lost weight 190 down to 150. He denies smoking or illicit drugs, he drinks 4 cups of liquor every day H cup about 4 ounces He denies depression or suicidal thoughts. Vitals are stable, he is slightly tachycardic with heart rate 98-101. Breathing rate 18, blood pressure 153/101. Oxygen saturation 96% on room air Labs showing WBC of 3.5, hemoglobin 11.3 and 9.4, platelet count 142 and 105, with some evidence of mild pancytopenia BMP is unremarkable. creatinine is 1.0. Troponin is slightly elevated at 0.05 and 0.05. ALT is 56, AST 176. Bilirubin is normal at 1.2. ProBNP is slightly elevated at 35-60. Urine analysis showing RBCs of 40, WBC of 3, negative nitrite and trace leukocyte esterase. On reviewing the records from [facility] he has WBC of 4.8, hemoglobin 10.9, platelets 156. 2, potassium 4.5. BUN is 10 and creatinine 1.0, glucose is 124. ALT 60 and ASD more elevated at 190. Bilirubin normal at 1.1. ProBNP is 3270 and troponin 0.05. Normal TSH at 1.5. Urine analysis showing 3+ blood in urine. Chest x-ray showing no acute process but limited quality. EKG shows sinus tachycardia and 105, poor R-wave progression and ST depression on aVL, QTC is 466. 03/09/21 Patient awake alert, no dyspnea, no chest pain. He still have significant swelling in lower extremity and scrotum but that not associated with any shortness of breath and his Vitas looks stable. He has itching and some rash and excoriation antibiotic in the lower legs. Still looks like some fungal rash in the groins No scrotal tenderness. Neurologist evaluated the patient and recommended cystoscopy as an outpatient for his microscopic hematuria He still complaining of from choking although he presents well evaluation yesterday and we advance diet, we didn't barium swallow evaluation and it was negative. I team recommended EGD/colonoscopy however patient declined and wants to [facility] His pancytopenia is a slightly worse today. However his platelet still 87 which is above 50 K therefore we kept him on heparin and wth close monitoring. His A1c is 4.3, para test panel is negative. Liver enzymes are slightly better. Ejection fraction 50-55%. Ultrasound of the leg is negative for DVT. Revenue Integrity Analyst recommended no further workup Stool wbc is also negative today. He is kept on CIWA score of 8-4 today. Physical therapy recommended subacute rehab. I discussed the case with school social worker who informed the adult protective services about him, we cannot get guardianship for him because he is fully awake and oriented. Patient has capacity to make decisions for himself. We provided permethrin and nystatin for his rash 03/10/2021 Patient was feeling more comfortable today morning he was more therapy and pleasant with the care and the progress he made in his improvement. His a swelling in the legs and scrotum is less, and he is kept on IV Lasix plus fluid restriction. His rash and excoriation especially in the buttocks and legs is improving after he was given permethrin and Benadryl as needed. However superimposed bacterial infection is suspected and ceftriaxone was started. His pro-consulted tone in his is slightly elevated at 0.23. He is hemodynamically stable. He has evidence of pancytopenia which is a stable or slightly better, mostly due to alcohol effect. Vitamin B12 checked and it is high. Liver enzymes slightly abnormal and they are improving. Creatinine is 1.3. He has evidence of malnutrition with hypoalbuminemia which is contributing to his edema. He was started on an sure He agreed today to undergo for EGD which shows Dooley's esophagus, patient explained about the nature of the precancerous lesions and he needs close outpatient follow-up and he agrees with the appointments made for him with GI service Today we have an extensive explanation for the patient for need for rehab, jose martinver he was adamant to go home because he has people and friends working in his house and that might cause him some money however he agrees with the appointments made for him with the [facility] on 03/22. I called [facility] and discussed the care and problem list with his nurse practitioner, primary nurse practitioner Marta and her nurse Radha with a recommendation for need for outpatient GI referral and urologist referral to rule out cancers. They told me there are going to follow-up with the patient however he has been not shown up in the office for about a year, I explained that the patient and he confirmed to me several times she Dooley's esophagus His ejection fraction is 50-55% and ultrasound of the leg is negative for DVT. Objective - Vital Signs Vital signs: Vital Signs Temp 98.1 F 03/10/21 11:57 Pulse 140 H 03/10/21 20:55 Resp 20 03/10/21 20:55 BP 149/86 03/10/21 20:55 Pulse Ox 97 03/10/21 20:55 Intake & Output 03/10/21 03/10/21 03/11/21 06:59 18:59 06:59 Intake Total 260 150 Output Total 635 100 560 Balance -375 50 -560 Weight 68.039 kg Intake: IV 100 Intake, IV Titration 50 Amount cefTRIAXone 1 gm In 50 Sodium Chloride 0.9% 50 ml @ 100 mls/hr IVPB Q24HR [facility] Rx#:[id number] Oral 260 Output: Urine 600 100 200 Post Void Residual 35 Stool 360 Other: Voiding Method Urinal Urinal Urinal Diaper # Voids 1 # Bowel Movements 1 - Exam GENERAL: The patient is alert and oriented x3, not in any acute distress. Well developed, well nourished. HEENT: Pupils are round and equally reacting to light. EOMI. No scleral icterus. No conjunctival pallor. Normocephalic, atraumatic. No pharyngeal erythema. No thyromegaly. CARDIOVASCULAR: S1 and S2 present. No murmurs, rubs, or gallops. PULMONARY: Chest is clear to auscultation, no wheezing or crackles. -ABDOMEN: Soft, nontender, nondistended, normoactive bowel sounds. No palpable organomegaly. Tegretol swelling with no tenderness MUSCULOSKELETAL: No joint swelling or deformity. -EXTREMITIES: No cyanosis, clubbing, or bilateral pitting leg edema NEUROLOGICAL: Gross neurological examination did not reveal any focal deficits. -SKIN: Bilateral fungal rash in the groin, other rash with some excoriation in both buttocks and lower legs associated with itching. no petechiae. - Labs CBC & Chem 7: 03/10/21 20:07 03/10/21 20:07 Labs: Abnormal Lab Results - Last 24 Hours (Table) 03/10/21 03/10/21 03/10/21 Range/Units 06:08 06:08 06:08 WBC 2.0 L (3.8-10.6) k/uL RBC 2.53 L (4.30-5.90) m/uL Hgb 9.2 L (13.0-17.5) gm/dL Hct 27.7 L (39.0-53.0) % MCV 109.5 H (80.0-100.0) fL MCH 36.4 H (25.0-35.0) pg Plt Count 107 L (150-450) k/uL Neutrophils # 1.2 L (1.3-7.7) k/uL Lymphocytes # 0.5 L (1.0-4.8) k/uL Macrocytosis Marked A APTT 33.6 H (22.0-30.0) sec Chloride (98-107) mmol/L Creatinine (0.66-1.25) mg/dL Est GFR (CKD-EPI)NonAf 57.6 L (60.0-200.0) Glucose (74-99) mg/dL Calcium 7.0 L (8.7-10.3) mg/dL Conjugated Bilirubin 0.70 H (0.20-0.40) mg/dL AST 82 H (14-35) U/L Total Protein 4.2 L (6.2-8.2) g/dL Albumin 2.10 L (3.80-4.90) g/dL Albumin/Globulin Ratio 1.00 L (1.60-3.17) g/dL 03/10/21 03/10/21 Range/Units 20:07 20:07 WBC 2.6 L (3.8-10.6) k/uL RBC 2.91 L (4.30-5.90) m/uL Hgb 10.4 L (13.0-17.5) gm/dL Hct 31.4 L (39.0-53.0) % MCV 107.9 H (80.0-100.0) fL MCH 35.8 H (25.0-35.0) pg Plt Count 125 L (150-450) k/uL Neutrophils # (1.3-7.7) k/uL Lymphocytes # 0.5 L (1.0-4.8) k/uL Macrocytosis APTT (22.0-30.0) sec Chloride 108 H (98-107) mmol/L Creatinine 1.32 H (0.66-1.25) mg/dL Est GFR (CKD-EPI)NonAf (60.0-200.0) Glucose 103 H (74-99) mg/dL Calcium 7.4 L (8.7-10.3) mg/dL Conjugated Bilirubin (0.20-0.40) mg/dL AST (14-35) U/L Total Protein (6.2-8.2) g/dL Albumin (3.80-4.90) g/dL Albumin/Globulin Ratio (1.60-3.17) g/dL Assessment and Plan Assessment: - Anasarca, 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 - alcohol abuse associated with alcohol withdrawal - Mild microscopic hematuria, cystoscopy recommended as an outpatient - Elevated troponin. Unrelated to heart disease. Keep monitoring - Barretts esophagus, Started on Protonix and follow-up outpatient - Deconditioning and generalized weakness and chronic gait difficulty, bedbound. Patient refused rehab and he wants to go home - mild elements of cellulitis of the buttocks, improving - History of asthma, not an active issue - Hypertension - Mild pancytopenia, mostly secondary to alcohol affect . - Mildly elevated liver enzymes, mostly secondary to alcohol affect, with ASD more than ALT. Improving - Malnutrition. Severe coronary protein malnutrition - Chronically bedbound - Deconditioning and bad self hygiene Plan: This is a pleasant 80 years old male who presents with anasarca, alcohol abuse Continue with CIWA protocol and Ativan as needed as well as thiamine Lasix 40 mg twice daily . Fluid restriction 1200 mL per day Continue with Protonix and follow up with GI as an outpatient Cystoscopy as an outpatient for microscopic hematuria Recommend subacute rehab upon discharge. Patient declines. Ordered home health care Added ensure Monitor for pancytopenia Continue with ceftriaxone Labs and medication were reviewed.. Continue same treatment. Continue with symptomatic treatment. Resume home medication. Monitor lytes and vitals. DVT and GI prophylaxis. Further recommendations depends on the clinical course of the patient DVT prophylaxis: Subcutaneous heparin GI Prophylaxis: Pepcid PT/OT: OSIEL, patient declines. He wants to go home Prognosis is guarded
[2021-03-11] MEDS: THIAMINE 100 MG TAB PO SCH ×3 (06:43→16:28)
[2021-03-11] MEDS: PANTOPRAZOLE 40 MG TABLET PO SCH ×2 (06:43→16:28)
--- NOTE | 2021-03-11 07:46 | XR ---
EXAMINATION TYPE: XR chest 1V DATE OF EXAM: 03/11/2021 CLINICAL HISTORY: Difficulty breathing progress study. TECHNIQUE: Single AP portable upright view of the chest is obtained. COMPARISON: Chest x-ray from 3 days earlier FINDINGS: No new suspicious focal airspace opacity, pleural effusion, or pneumothorax seen bilateral ly. Background mild chronic parenchymal changes. Cardiac silhouette size stable and within normal roy its. Degenerative change bilateral shoulders. IMPRESSION: No new acute pulmonary process. No significant change from prior.
[2021-03-11 08:20] LABS: INR 1.6 (<1.2); Prothrombin Time 15.6 sec (9.0-12.0)
[2021-03-11 08:34] LABS: HCT 30.6 % (39.0-53.0); HGB 9.9 gm/dL (13.0-17.5); MCH 35.2 pg (25.0-35.0); MCHC 32.3 g/dL (31.0-37.0); MCV 108.9 fL (80.0-100.0); Macrocytosis Marked; Mean Platelet Volume 8.8; Platelet Count 115 k/uL (150-450); RBC 2.81 m/uL (4.30-5.90); RDW 13.9 % (11.5-15.5); WBC 2.5 k/uL (3.8-10.6)
[2021-03-11] MEDS: ALBUTEROL NEBULIZED 2.5 MG/3 ML INHALATION PRN (08:41)
[2021-03-11] MEDS ORDERED: FAMOTIDINE 20 MG TAB PO STA (08:44)
[2021-03-11 08:54] LABS: Calcium 7.5 mg/dL (8.4-10.2); Magnesium 1.7 mg/dL (1.6-2.3); Potassium 3.9 mmol/L (3.5-5.1); Total Protein 4.8 g/dL (6.3-8.2)
[2021-03-11] MEDS: FUROSEMIDE 10 MG/ML 4 ML VIAL IV SCH (09:11)
[2021-03-11] MEDS: HEPARIN SODIUM,PORCINE/PF 5,000 UNIT/0.5 ML SYRINGE SQ SCH ×2 (09:12→20:53)
[2021-03-11] MEDS: NYSTATIN 100,000UNIT/GM CREAM 30 GM TUBE TOPICAL SCH ×2 (09:20→20:56)
[2021-03-11] MEDS: DILTIAZEM 125 MG in SODIUM CHLORIDE 0.9% 100 ML IV SCH (09:29)
[2021-03-11] MEDS: METOPROLOL TARTRATE 25 MG TAB PO SCH ×2 (10:14→20:53)
--- NOTE | 2021-03-11 10:44 | PN ---
PROGRESS NOTE Mr. Morrison is a 80-year-old male who was admitted to the hospital on March 07 with difficulty swallowing, was found to have peripheral edema. He underwent an echocardiogram that revealed a preserved left ventricular size systolic function. The patient has a history of alcohol intake. He has underwent endoscopy by Dr. Cheatham and was found to have evidence of esophagitis and hiatal hernia. He had an echocardiogram revealed preserved left ventricular size and systolic function. He had atrial arrhythmia earlier today, but did not appear to be in atrial fibrillation. He denies any chest pain, his is breathing stable. He denies any dizziness or palpitation. He denies any nausea. He continues to be on IV Cardizem, Lasix 40 mg IV q.12 hours, Protonix 40 mg twice a day, and thiamine. PHYSICAL EXAMINATION: Blood pressure running in the 120s to 150s with a heart rate in the 100s. Afebrile. Lungs with a few scattered rhonchi. No wheezes. Heart: Regular rate and rhythm with S1-S2 and occasional extrasystole. Abdomen: Soft, nontender. Extremities: +1 edema. LAB DATA: Revealed hemoglobin of 9.1, white blood cell of 2.5. His BUN and creatinine are 14 and 1.29. Potassium 3.9. His protein is 4.8. Abdomen is 2.0. IMPRESSION: 1. Atrial arrhythmia. No clear evidence of atrial fibrillation at this time. 2. Generalized edema, probably related to malnutrition and low protein albumin. 3. History of alcohol intake. 4. Gastritis and hiatal hernia. 5. Mild troponin elevation with no evidence to suggest acute ischemic event. RECOMMENDATION: I will switch him to oral diuretics and I will stop the IV Cardizem and start on low- dose beta stephanie. Follow his renal function. Depending on his progress, further recommendation will be made. MMODL / IJN: [id number] /
[2021-03-11] MEDS ORDERED: MAGNESIUM SULFATE-D5W PMX 1 GM in DEXTROSE/WATER 1 100ML.BAG IVPB ONE (11:15)
--- NOTE | 2021-03-11 11:19 | P.PN ---
Subjective This is a pleasant 80 years old male with past medical history of asthma Patient was transferred from [facility] for bilateral lower extremity swelling and edema and scrotal and penile swelling as well. Patient states that he presents because of diarrhea and generalized swelling including the scrotum which has been going on for the last 2 months but he could not specify what prompted him to come to emergency room today. Patient is bedbound for about a year, nonweightbearing, he told me last time he walked about 6 months ago. Also he does not follow up with his [facility] and last Several Months Ago. that's Why Mainly He Eats Juices and liquids.. He lost weight 190 down to 150. He denies smoking or illicit drugs, he drinks 4 cups of liquor every day H cup about 4 ounces He denies depression or suicidal thoughts. Vitals are stable, he is slightly tachycardic with heart rate 98-101. Breathing rate 18, blood pressure 153/101. Oxygen saturation 96% on room air Labs showing WBC of 3.5, hemoglobin 11.3 and 9.4, platelet count 142 and 105, with some evidence of mild pancytopenia BMP is unremarkable. creatinine is 1.0. Troponin is slightly elevated at 0.05 and 0.05. ALT is 56, AST 176. Bilirubin is normal at 1.2. ProBNP is slightly elevated at 35-60. Urine analysis showing RBCs of 40, WBC of 3, negative nitrite and trace leukocyte esterase. On reviewing the records from [facility] he has WBC of 4.8, hemoglobin 10.9, platelets 156. 2, potassium 4.5. BUN is 10 and creatinine 1.0, glucose is 124. ALT 60 and ASD more elevated at 190. Bilirubin normal at 1.1. ProBNP is 3270 and troponin 0.05. Normal TSH at 1.5. Urine analysis showing 3+ blood in urine. Chest x-ray showing no acute process but limited quality. EKG shows sinus tachycardia and 105, poor R-wave progression and ST depression on aVL, QTC is 466. 03/09/21 Patient awake alert, no dyspnea, no chest pain. He still have significant swelling in lower extremity and scrotum but that not associated with any shortness of breath and his Vitas looks stable. He has itching and some rash and excoriation antibiotic in the lower legs. Still looks like some fungal rash in the groins No scrotal tenderness. Neurologist evaluated the patient and recommended cystoscopy as an outpatient for his microscopic hematuria He still complaining of from choking although he presents well evaluation yesterday and we advance diet, we didn't barium swallow evaluation and it was negative. I team recommended EGD/colonoscopy however patient declined and wants to follow up with his GI office as an [facility] His pancytopenia is a slightly worse today. However his platelet still 87 which is above 50 K therefore we kept him on heparin and wth close monitoring. His A1c is 4.3, para test panel is negative. Liver enzymes are slightly better. Ejection fraction 50-55%. Ultrasound of the leg is negative for DVT. Teacher'S Aide recommended no further workup Stool wbc is also negative today. He is kept on CIWA score of 8-4 today. Physical therapy recommended subacute rehab. I discussed the case with social work case manager who informed the adult protective services about him, we cannot get guardianship for him because he is fully awake and oriented. Patient has capacity to make decisions for himself. We provided permethrin and nystatin for his rash 03/10/2021 Patient was feeling more comfortable today morning he was more therapy and pleasant with the care and the progress he made in his improvement. His a swelling in the legs and scrotum is less, and he is kept on IV Lasix plus fluid restriction. His rash and excoriation especially in the buttocks and legs is improving after he was given permethrin and Benadryl as needed. However superimposed bacterial infection is suspected and ceftriaxone was started. His pro-consulted tone in his is slightly elevated at 0.23. He is hemodynamically stable. He has evidence of pancytopenia which is a stable or slightly better, mostly due to alcohol effect. Vitamin B12 checked and it is high. Liver enzymes slightly abnormal and they are improving. Creatinine is 1.3. He has evidence of malnutrition with hypoalbuminemia which is contributing to his edema. He was started on an sure He agreed today to undergo for EGD which shows Dooley's esophagus, patient explained about the nature of the precancerous lesions and he needs close outpatient follow-up and he agrees with the appointments made for him with GI service Today we have an extensive explanation for the patient for need for rehab, jose martinver he was adamant to go home because he has people and friends working in his house and that might cause him some money however he agrees with the appointments made for him with the [place] [facility] on 03/22. I called [facility] and discussed the care and problem list with his nurse practitioner, primary nurse practitioner Marta and her nurse Radha with a recommendation for need for outpatient GI referral and urologist referral to rule out cancers. They told me there are going to follow-up with the patient however he has been not shown up in the office for about a year, I explained that the patient and he confirmed to me several times she Dooley's esophagus His ejection fraction is 50-55% and ultrasound of the leg is negative for DVT. 03/11/2021 Last night patient developed tachycardia around 160 thought it was due to atrial fibrillation/flutter and vice admiral started him on Cardizem drip. Today he switched to oral metoprolol and vice admiral on reviewing the rhythm that looks only atrial tachycardia rather than atrial fibrillation. Also this could be related to his other medical issues including alcohol withdrawal, CIWA score was 19 yesterday and today and he is already covered with protocol with Ativan as needed. As well as thiamine. Other of vitals are stable. Labs showing stable pancytopenia, INR is a stable around 1.6. Anion stable around 1.24 and vice admiral to switch his IV Lasix to 20 mg by mouth twice a day. His edema is also improving. Fluid restriction Repeat chest x-ray today is negative. We will repeatcalcitonin and it is improving are negative then we may consider stopping for the skeleton antibiotic. Currently he is on ceftriaxone. His rash is improving. He found to have Dooley's esophagus however he is placed on regular diet and Protonix twice a day. He still itching around 50% of his male, not eating much at baseline and this is chronic for him. Objective - Vital Signs Vital signs: Vital Signs Temp 98.8 F 03/11/21 08:00 Pulse 89 03/11/21 08:50 Resp 18 03/11/21 08:00 BP 157/77 03/11/21 08:00 Pulse Ox 93 L 03/11/21 08:00 Intake & Output 03/10/21 03/11/21 03/11/21 18:59 06:59 18:59 Intake Total 150 125 Output Total 100 660 Balance 50 -660 125 Weight 68.039 kg 80.5 kg Intake: IV 100 Intake, IV Titration 50 125 Amount Diltiazem 125 mg In 125 Sodium Chloride 0.9% 100 ml @ 10 MG/HR 10 mls/hr IV .[id number] [facility] Rx#: [id number] cefTRIAXone 1 gm In 50 Sodium Chloride 0.9% 50 ml @ 100 mls/hr IVPB Q24HR [facility] Rx#:[id number] Output: Urine 100 300 Stool 360 Other: Voiding Method Urinal Urinal Urinal Diaper Diaper # Voids 1 # Bowel Movements 1 - Exam GENERAL: The patient is alert and oriented x3, not in any acute distress. Well developed, well nourished. HEENT: Pupils are round and equally reacting to light. EOMI. No scleral icterus. No conjunctival pallor. Normocephalic, atraumatic. No pharyngeal erythema. No thyromegaly. CARDIOVASCULAR: S1 and S2 present. No murmurs, rubs, or gallops. PULMONARY: Chest is clear to auscultation, no wheezing or crackles. -ABDOMEN: Soft, nontender, nondistended, normoactive bowel sounds. No palpable organomegaly. Tegretol swelling with no tenderness MUSCULOSKELETAL: No joint swelling or deformity. -EXTREMITIES: No cyanosis, clubbing, or bilateral pitting leg edema NEUROLOGICAL: Gross neurological examination did not reveal any focal deficits. -SKIN: Bilateral fungal rash in the groin, other rash with some excoriation in both buttocks and lower legs associated with itching. no petechiae. - Labs CBC & Chem 7: 03/11/21 07:22 03/11/21 07:22 Labs: Abnormal Lab Results - Last 24 Hours (Table) 03/10/21 03/10/21 03/10/21 Range/Units 06:08 06:08 20:07 WBC 2.6 L (3.8-10.6) k/uL RBC 2.91 L (4.30-5.90) m/uL Hgb 10.4 L (13.0-17.5) gm/dL Hct 31.4 L (39.0-53.0) % MCV 107.9 H (80.0-100.0) fL MCH 35.8 H (25.0-35.0) pg Plt Count 125 L (150-450) k/uL Neutrophils # 1.2 L (1.3-7.7) k/uL Lymphocytes # 0.5 L 0.5 L (1.0-4.8) k/uL Macrocytosis PT (9.0-12.0) sec INR (<1.2) Chloride (98-107) mmol/L Creatinine (0.66-1.25) mg/dL Est GFR (CKD-EPI)NonAf 57.6 L (60.0-200.0) Glucose (74-99) mg/dL Calcium 7.0 L (8.7-10.3) mg/dL Conjugated Bilirubin 0.70 H (0.20-0.40) mg/dL AST 82 H (14-35) U/L Total Protein 4.2 L (6.2-8.2) g/dL Albumin 2.10 L (3.80-4.90) g/dL Albumin/Globulin Ratio 1.00 L (1.60-3.17) g/dL 03/10/21 03/11/21 03/11/21 Range/Units 20:07 07:22 07:22 WBC 2.5 L (3.8-10.6) k/uL RBC 2.81 L (4.30-5.90) m/uL Hgb 9.9 L (13.0-17.5) gm/dL Hct 30.6 L (39.0-53.0) % MCV 108.9 H (80.0-100.0) fL MCH 35.2 H (25.0-35.0) pg Plt Count 115 L (150-450) k/uL Neutrophils # (1.3-7.7) k/uL Lymphocytes # (1.0-4.8) k/uL Macrocytosis Marked A PT 15.6 H (9.0-12.0) sec INR 1.6 H (<1.2) Chloride 108 H (98-107) mmol/L Creatinine 1.32 H (0.66-1.25) mg/dL Est GFR (CKD-EPI)NonAf (60.0-200.0) Glucose 103 H (74-99) mg/dL Calcium 7.4 L (8.7-10.3) mg/dL Conjugated Bilirubin (0.20-0.40) mg/dL AST (14-35) U/L Total Protein (6.2-8.2) g/dL Albumin (3.80-4.90) g/dL Albumin/Globulin Ratio (1.60-3.17) g/dL 03/11/21 Range/Units 07:22 WBC (3.8-10.6) k/uL RBC (4.30-5.90) m/uL Hgb (13.0-17.5) gm/dL Hct (39.0-53.0) % MCV (80.0-100.0) fL MCH (25.0-35.0) pg Plt Count (150-450) k/uL Neutrophils # (1.3-7.7) k/uL Lymphocytes # (1.0-4.8) k/uL Macrocytosis PT (9.0-12.0) sec INR (<1.2) Chloride (98-107) mmol/L Creatinine 1.29 H (0.66-1.25) mg/dL Est GFR (CKD-EPI)NonAf (60.0-200.0) Glucose (74-99) mg/dL Calcium 7.5 L (8.7-10.3) mg/dL Conjugated Bilirubin (0.20-0.40) mg/dL AST 85 H (14-35) U/L Total Protein 4.8 L (6.2-8.2) g/dL Albumin 2.0 L (3.80-4.90) g/dL Albumin/Globulin Ratio (1.60-3.17) g/dL Assessment and Plan Assessment: - Anasarca, 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 - alcohol abuse associated with alcohol withdrawal - Mild microscopic hematuria, cystoscopy recommended as an outpatient - Elevated troponin. Unrelated to heart disease. Keep monitoring - Barretts esophagus, Started on Protonix and follow-up outpatient - Deconditioning and generalized weakness and chronic gait difficulty, bedbound. Patient refused rehab and he wants to go home - mild elements of cellulitis of the buttocks, improving - History of asthma, not an active issue - Hypertension - Mild pancytopenia, mostly secondary to alcohol affect . - Tachycardia, most likely atrial tachycardia rather than A. fib no need for anticoagulation per vice admiral - Mildly elevated liver enzymes, mostly secondary to alcohol affect, with ASD more than ALT. Improving - Malnutrition. Severe coronary protein malnutrition - Chronically bedbound - Deconditioning and bad self hygiene Plan: This is a pleasant 80 years old male who presents with anasarca, alcohol abuse Continue with CIWA protocol and Ativan as needed as well as thiamine Lasix 40 mg twice daily . Fluid restriction 1200 mL per day Continue with Protonix and follow up with GI as an outpatient Cystoscopy as an outpatient for microscopic hematuria Recommend subacute rehab upon discharge. Patient declines. Ordered home health care Added ensure Monitor for pancytopenia Continue with ceftriaxone Labs and medication were reviewed.. Continue same treatment. Continue with symptomatic treatment. Resume home medication. Monitor lytes and vitals. DVT and GI prophylaxis. Further recommendations depends on the clinical course of the patient DVT prophylaxis: Subcutaneous heparin GI Prophylaxis: Pepcid PT/OT: OSIEL, patient declines. He wants to go home Prognosis is guarded
[2021-03-11 11:30] LABS: Eosinophils # (M) 0.03 k/uL (0-0.7); Lymphocytes # (M) 0.23 k/uL (1.0-4.8); Neutrophils # (M) 1.95 k/uL (1.3-7.7); Neutrophils % (M) 78 %; Nucleated Red Blood Cells 0 /100 WBC (0-0); Total Cells Counted 100
[2021-03-11 11:33] LABS: Anisocytosis (M) Present; Poikilocytosis (M) Present
[2021-03-11] MEDS: FUROSEMIDE 20 MG TAB PO SCH (20:53)
[2021-03-12] MEDS: PANTOPRAZOLE 40 MG TABLET PO SCH ×2 (06:16→16:29)
[2021-03-12] MEDS: ALBUTEROL NEBULIZED 2.5 MG/3 ML INHALATION PRN (08:12)
[2021-03-12] MEDS: FUROSEMIDE 20 MG TAB PO SCH ×2 (09:14→20:11)
[2021-03-12] MEDS: NYSTATIN 100,000UNIT/GM CREAM 30 GM TUBE TOPICAL SCH ×2 (09:15→20:56)
[2021-03-12] MEDS: HEPARIN SODIUM,PORCINE/PF 5,000 UNIT/0.5 ML SYRINGE SQ SCH ×2 (09:15→20:11)
[2021-03-12] MEDS: METOPROLOL TARTRATE 25 MG TAB PO SCH ×2 (09:15→20:11)
[2021-03-12] MEDS: TAMSULOSIN 0.4 MG CAP.ER.24H PO SCH (09:21)
[2021-03-12 09:39] LABS: Calcium 7.4 mg/dL (8.4-10.2); Magnesium 1.9 mg/dL (1.6-2.3); Potassium 3.7 mmol/L (3.5-5.1)
--- NOTE | 2021-03-12 11:01 | PN ---
PROGRESS NOTE Mr. Morrison is a 80-year-old male who presented with symptoms of difficulty swallowing. He underwent endoscopy. He had a prior history of alcohol intake. On the monitor he had atrial arrhythmia, but no atrial fibrillation. He is feeling better today. His breathing is better. He still feels tired at times, dizzy when he stood up. He denies any chest pain. No palpitations. He is able to eat better. He continues to be at this time on furosemide orally 20 mg twice a day, metoprolol tartrate 25 mg twice a day in addition to tamsulosin and thiamine. PHYSICAL EXAMINATION: Blood pressure is 134/70 with a heart rate in the 80s. LUNGS: Decreased air exchange. No wheezes. HEART: Regular rate and rhythm. S1, S2. No S3, with extrasystole. ABDOMEN: Soft, nontender. EXTREMITIES: Trace to 1+ edema. LAB DATA: Lab data revealed BUN and creatinine of 14 and 1.24, potassium 3.7. IMPRESSION: 1. Peripheral edema, most likely related to low protein and albumin with malnutrition. 2. Atrial arrhythmia with no evidence of atrial fibrillation. 3. History of alcohol intake. 4. Troponin elevation with no evidence of acute ischemic event. RECOMMENDATIONS: I will increase the dose of his beta stephanie. Continue the rest of his medical regimen. Follow his renal function closely. Depending on his progress, further recommendations will be made. MMODL / IJN: [id number] /
--- NOTE | 2021-03-12 12:11 | P.PN ---
Subjective Progress Note Date: 03/12/21 The patient was seen for scrotal edema which is secondary to poor nutrition and probable alcoholism with secondary liver dysfunction. 3 guard to his voiding he is having incomplete bladder emptying. He has microscopic hematuria that needs an evaluation. With incomplete bladder emptying the nursing staff attempted to catheterize but were unable to do so. I suspect the patient has a stricture. I discussed with the patient the option of catheterization and urethral dilation. The patient declines this. He wishes to wait be seen as an outpatient. He'll need an outpatient cystoscopy. He should follow-up in our office. Objective - Vital Signs Vital signs: Vital Signs Temp 98.2 F 03/12/21 08:00 Pulse 140 H 03/12/21 09:30 Resp 18 03/12/21 08:00 BP 134/78 03/12/21 08:00 Pulse Ox 96 03/12/21 08:00 Intake & Output 03/11/21 03/12/21 03/12/21 18:59 06:59 18:59 Intake Total 125 240 Output Total 360 800 Balance -235 -560 Weight 74.5 kg Intake: Intake, IV Titration 125 Amount Diltiazem 125 mg In 125 Sodium Chloride 0.9% 100 ml @ 5 MG/HR 5 mls/hr IV .Q24H [facility] Rx#:[id number] Oral 240 Output: Urine 700 Post Void Residual 100 Stool 360 Other: Voiding Method Urinal Urinal Diaper Diaper # Voids 1 # Bowel Movements 1 1 - Labs CBC & Chem 7: 03/11/21 07:22 03/12/21 08:49 Labs: Abnormal Lab Results - Last 24 Hours (Table) 03/11/21 03/12/21 Range/Units 07:22 08:49 Glucose 120 H (74-99) mg/dL Calcium 7.4 L (8.4-10.2) mg/dL Procalcitonin 0.24 H (0.02-0.09) ng/mL Microbiology - Last 24 Hours (Table) 03/08/21 12:45 Stool Culture - Final Stool
[2021-03-12] MEDS: THIAMINE 100 MG TAB PO SCH (16:29)
--- NOTE | 2021-03-12 18:11 | P.PN ---
Subjective This is a pleasant 80 years old male with past medical history of asthma Patient was transferred from [facility] for bilateral lower extremity swelling and edema and scrotal and penile swelling as well. Patient states that he presents because of diarrhea and generalized swelling including the scrotum which has been going on for the last 2 months but he could not specify what prompted him to come to emergency room today. Patient is bedbound for about a year, nonweightbearing, he told me last time he walked about 6 months ago. Also he does not follow up with his [facility] doctor and last Several Months Ago. that's Why Mainly He Eats Juices and liquids.. He lost weight 190 down to 150. He denies smoking or illicit drugs, he drinks 4 cups of liquor every day H cup about 4 ounces He denies depression or suicidal thoughts. Vitals are stable, he is slightly tachycardic with heart rate 98-101. Breathing rate 18, blood pressure 153/101. Oxygen saturation 96% on room air Labs showing WBC of 3.5, hemoglobin 11.3 and 9.4, platelet count 142 and 105, with some evidence of mild pancytopenia BMP is unremarkable. creatinine is 1.0. Troponin is slightly elevated at 0.05 and 0.05. ALT is 56, AST 176. Bilirubin is normal at 1.2. ProBNP is slightly elevated at 35-60. Urine analysis showing RBCs of 40, WBC of 3, negative nitrite and trace leukocyte esterase. On reviewing the records from [facility] he has WBC of 4.8, hemoglobin 10.9, platelets 156. 2, potassium 4.5. BUN is 10 and creatinine 1.0, glucose is 124. ALT 60 and ASD more elevated at 190. Bilirubin normal at 1.1. ProBNP is 3270 and troponin 0.05. Normal TSH at 1.5. Urine analysis showing 3+ blood in urine. Chest x-ray showing no acute process but limited quality. EKG shows sinus tachycardia and 105, poor R-wave progression and ST depression on aVL, QTC is 466. 03/09/21 Patient awake alert, no dyspnea, no chest pain. He still have significant swelling in lower extremity and scrotum but that not associated with any shortness of breath and his Vitas looks stable. He has itching and some rash and excoriation antibiotic in the lower legs. Still looks like some fungal rash in the groins No scrotal tenderness. Neurologist evaluated the patient and recommended cystoscopy as an outpatient for his microscopic hematuria He still complaining of from choking although he presents well evaluation yesterday and we advance diet, we didn't barium swallow evaluation and it was negative. I team recommended EGD/colonoscopy however patient declined and wants to follow up with his GI office as an outpatient [facility] His pancytopenia is a slightly worse today. However his platelet still 87 which is above 50 K therefore we kept him on heparin and wth close monitoring. His A1c is 4.3, para test panel is negative. Liver enzymes are slightly better. Ejection fraction 50-55%. Ultrasound of the leg is negative for DVT. Icing Mixer recommended no further workup Stool wbc is also negative today. He is kept on CIWA score of 8-4 today. Physical therapy recommended subacute rehab. I discussed the case with social services director who informed the adult protective services about him, we cannot get guardianship for him because he is fully awake and oriented. Patient has capacity to make decisions for himself. We provided permethrin and nystatin for his rash 03/10/2021 Patient was feeling more comfortable today morning he was more therapy and pleasant with the care and the progress he made in his improvement. His a swelling in the legs and scrotum is less, and he is kept on IV Lasix plus fluid restriction. His rash and excoriation especially in the buttocks and legs is improving after he was given permethrin and Benadryl as needed. However superimposed bacterial infection is suspected and ceftriaxone was started. His pro-consulted tone in his is slightly elevated at 0.23. He is hemodynamically stable. He has evidence of pancytopenia which is a stable or slightly better, mostly due to alcohol effect. Vitamin B12 checked and it is high. Liver enzymes slightly abnormal and they are improving. Creatinine is 1.3. He has evidence of malnutrition with hypoalbuminemia which is contributing to his edema. He was started on an sure He agreed today to undergo for EGD which shows Dooley's esophagus, patient explained about the nature of the precancerous lesions and he needs close outpatient follow-up and he agrees with the appointments made for him with GI service Today we have an extensive explanation for the patient for need for rehab, jose martinver he was adamant to go home because he has people and friends working in his house and that might cause him some money however he agrees with the appointments made for him with the [facility] on 03/22. I called [facility] office and discussed the care and problem list with his nurse practitioner, primary nurse practitioner Marta and her nurse Radha with a recommendation for need for outpatient GI referral and urologist referral to rule out cancers. They told me there are going to follow-up with the patient however he has been not shown up in the office for about a year, I explained that the patient and he confirmed to me several times she Dooley's esophagus His ejection fraction is 50-55% and ultrasound of the leg is negative for DVT. 03/11/2021 Last night patient developed tachycardia around 160 thought it was due to atrial fibrillation/flutter and critical care physician started him on Cardizem drip. Today he switched to oral metoprolol and critical care physician on reviewing the rhythm that looks only atrial tachycardia rather than atrial fibrillation. Also this could be related to his other medical issues including alcohol withdrawal, CIWA score was 19 yesterday and today and he is already covered with protocol with Ativan as needed. As well as thiamine. Other of vitals are stable. Labs showing stable pancytopenia, INR is a stable around 1.6. Anion stable around 1.24 and critical care physician to switch his IV Lasix to 20 mg by mouth twice a day. His edema is also improving. Fluid restriction Repeat chest x-ray today is negative. We will repeatcalcitonin and it is improving are negative then we may consider stopping for the skeleton antibiotic. Currently he is on ceftriaxone. His rash is improving. He found to have Dooley's esophagus however he is placed on regular diet and Protonix twice a day. He still itching around 50% of his male, not eating much at baseline and this is chronic for him. 03/12/2021 today he is doing well generally , he is comfortable in bed, no chest pain or dyspnea . He still afraid to eat although he passed a swallow evaluation and barium swallow test and EKG showing barium Dooley's esophagus he was encouraged to eat more however he is consuming liquid diet and ensure. Area today he was still tachycardic with heart rate about 140, critical care physician follow the patient, it is sinus tachycardia related to alcohol withdrawal and general medical issue was placed on metoprolol and does increase today to 50 mg twice a day. His CIWA score is 0, he does not need any medication for withdrawal anymore. He is afebrile. His creatinine actually better today to 1.2. His swelling is coming down and he was switched to oral Lasix by critical care physician. Rash is better and we switch his antibiotic ceftriaxone to Augmentin. His portcalcitonin is stable at 0.24 and is not worsening. His infection has been controlled. 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 C. diff is negative. Stool wbc is negative indicating against infection. He remains on Protonix for GI prophylaxis and treatment of his Dooley's esophagus Patient's wants to leave tomorrow because he has an R from [facility] asked him to show up before 03/14 otherwise he will lose his [facility] benefits, so he was adamant relieved by tomorrow. However looks like patient improving clinically and if he remains stable and proven than possible discharge in 24 hours Today he has some urine retention, so Flomax was added and urologist saw Dr. Sorto patient refused any procedure saw Dr. Sorto told me patient can follow-up as an outpatient Objective - Vital Signs Vital signs: Vital Signs Temp 98.2 F 03/12/21 08:00 Pulse 140 H 03/12/21 09:30 Resp 18 03/12/21 08:00 BP 134/78 03/12/21 08:00 Pulse Ox 96 03/12/21 08:00 Intake & Output 03/11/21 03/12/21 03/12/21 18:59 06:59 18:59 Intake Total 125 240 Output Total 360 800 Balance -235 -560 Weight 74.5 kg Intake: Intake, IV Titration 125 Amount Diltiazem 125 mg In 125 Sodium Chloride 0.9% 100 ml @ 5 MG/HR 5 mls/hr IV .[facility] Rx#:[id number] Oral 240 Output: Urine 700 Post Void Residual 100 Stool 360 Other: Voiding Method Urinal Urinal Diaper Diaper # Voids 1 # Bowel Movements 1 1 - Exam GENERAL: The patient is alert and oriented x3, not in any acute distress. Well developed, well nourished. HEENT: Pupils are round and equally reacting to light. EOMI. No scleral icterus. No conjunctival pallor. Normocephalic, atraumatic. No pharyngeal erythema. No thyromegaly. CARDIOVASCULAR: S1 and S2 present. No murmurs, rubs, or gallops. PULMONARY: Chest is clear to auscultation, no wheezing or crackles. -ABDOMEN: Soft, nontender, nondistended, normoactive bowel sounds. No palpable organomegaly. Tegretol swelling with no tenderness MUSCULOSKELETAL: No joint swelling or deformity. -EXTREMITIES: No cyanosis, clubbing, or bilateral pitting leg edema NEUROLOGICAL: Gross neurological examination did not reveal any focal deficits. -SKIN: Bilateral fungal rash in the groin, other rash with some excoriation in both buttocks and lower legs associated with itching. no petechiae. - Labs CBC & Chem 7: 03/11/21 07:22 03/12/21 08:49 Labs: Abnormal Lab Results - Last 24 Hours (Table) 03/11/21 03/12/21 Range/Units 07:22 08:49 Glucose 120 H (74-99) mg/dL Calcium 7.4 L (8.4-10.2) mg/dL Procalcitonin 0.24 H (0.02-0.09) ng/mL Microbiology - Last 24 Hours (Table) 03/08/21 12:45 Stool Culture - Final Stool Assessment and Plan Assessment: - Anasarca, 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 - alcohol abuse associated with alcohol withdrawal - Mild microscopic hematuria, cystoscopy recommended as an outpatient - Elevated troponin. Unrelated to heart disease. Keep monitoring - Barretts esophagus, Started on Protonix and follow-up outpatient - Deconditioning and generalized weakness and chronic gait difficulty, bedbound. Patient refused rehab and he wants to go home - mild elements of cellulitis of the buttocks, improving - History of asthma, not an active issue - Hypertension - Mild pancytopenia, mostly secondary to alcohol affect . - Tachycardia, most likely atrial tachycardia rather than A. fib no need for anticoagulation per critical care physician - Mildly elevated liver enzymes, mostly secondary to alcohol affect, with ASD more than ALT. Improving - Malnutrition. Severe coronary protein malnutrition - Chronically bedbound - Deconditioning and bad self hygiene Plan: This is a pleasant 80 years old male who presents with anasarca, alcohol abuse Continue with CIWA protocol and Ativan as needed as well as thiamine. No need for more Ativan Lasix switched to oral . Continue with Fluid restriction 1200 mL per day Continue with Protonix and follow up with GI as an outpatient Cystoscopy as an outpatient for microscopic hematuria. Recommend subacute rehab upon discharge. Patient declines. Ordered home health care Added ensure Monitor for pancytopenia Continue with Augmentin Labs and medication were reviewed.. Continue same treatment. Continue with symptomatic treatment. Resume home medication. Monitor lytes and vitals. DVT and GI prophylaxis. Further recommendations depends on the clinical course of the patient DVT prophylaxis: Subcutaneous heparin GI Prophylaxis: Pepcid PT/OT: OSIEL, patient declines. He wants to go home Prognosis is guarded Possible discharge in 24 hours
[2021-03-12] MEDS: AMOXIC-POT CLAV 875-125MG 1 EACH TAB PO SCH (18:14)
[2021-03-12 19:10] LABS: HCT 28.7 % (39.0-53.0); HGB 9.3 gm/dL (13.0-17.5); MCH 34.8 pg (25.0-35.0); MCHC 32.4 g/dL (31.0-37.0); MCV 107.3 fL (80.0-100.0); Macrocytosis Moderate; Mean Platelet Volume 9.2; Platelet Count 107 k/uL (150-450); RBC 2.67 m/uL (4.30-5.90); WBC 2.5 k/uL (3.8-10.6)
[2021-03-12 19:13] LABS: Albumin 1.9 g/dL (3.5-5.0); Bilirubin, Delta 0.5 mg/dL (0.0-0.2); Bilirubin,Unconjugated 0.2 mg/dL (0.0-1.1); Total Bilirubin 0.7 mg/dL (0.2-1.3); Total Protein 4.5 g/dL (6.3-8.2)
[2021-03-12 19:31] LABS: Anisocytosis (M) Present; Lymphocytes # (M) 0.48 k/uL (1.0-4.8); Monocytes # (M) 0.48 k/uL (0-1.0); Myelocytes # (M) 0.03 k/uL (0); Myelocytes % 1 %; Neutrophils # (M) 1.53 k/uL (1.3-7.7); Neutrophils % (M) 61 %; Nucleated Red Blood Cells 0 /100 WBC (0-0); Poikilocytosis (M) Present; Total Cells Counted 100
[2021-03-13] MEDS: AMOXIC-POT CLAV 875-125MG 1 EACH TAB PO SCH ×2 (06:32→17:08)
[2021-03-13] MEDS: PANTOPRAZOLE 40 MG TABLET PO SCH ×2 (06:32→17:08)
[2021-03-13] MEDS: ALBUTEROL NEBULIZED 2.5 MG/3 ML INHALATION PRN (07:25)
[2021-03-13] MEDS: HEPARIN SODIUM,PORCINE/PF 5,000 UNIT/0.5 ML SYRINGE SQ SCH ×2 (07:58→19:59)
[2021-03-13] MEDS: METOPROLOL TARTRATE 25 MG TAB PO SCH ×2 (07:59→19:59)
[2021-03-13] MEDS: FUROSEMIDE 20 MG TAB PO SCH ×2 (07:59→19:59)
[2021-03-13] MEDS: THIAMINE 100 MG TAB PO SCH ×2 (07:59→17:08)
[2021-03-13] MEDS: TAMSULOSIN 0.4 MG CAP.ER.24H PO SCH (07:59)
[2021-03-13] MEDS: NYSTATIN 100,000UNIT/GM CREAM 30 GM TUBE TOPICAL SCH ×2 (08:00→20:00)
[2021-03-13 08:48] LABS: Calcium 7.1 mg/dL (8.4-10.2); Potassium 3.7 mmol/L (3.5-5.1)
--- NOTE | 2021-03-13 14:02 | P.PN ---
Subjective This is a pleasant 80-year-old male past medical history significant for hypertension and daily alcohol intake. 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 We are following secondary to atrial arrhythmia noted on the monitor. He is seen and examined resting comfortably lying flat in no acute distress. He denies symptoms of chest pain, shortness of breath, dizziness or palpitations. Blood pressure 144/71 heart rate 62 afebrile maintaining oxygen saturation on room air. Telemetry tracings reveals sinus mechanism with no significant atrial or ventricular arrhythmia on the previous 24 hours. Laboratory data reviewed, sodium 139, potassium 3.7, creatinine 1.2. Currently maintained on Lasix 20 mg by mouth twice a day and Lopressor 50 mg twice a day. Echocardiogram obtained on this admission reveals preserved LV systolic function with ejection fraction 50-55%, valves were not well visualized. It was a technically difficult study with suboptimal views. GENERAL: Well-appearing, well-nourished and in no acute distress. NECK: Supple without JVD or thyromegaly. LUNGS: Breath sounds clear to auscultation bilaterally. Respiration equal and unlabored. No wheezes, rales or rhonchi. HEART: Regular rate and rhythm without murmurs, rubs or gallops. S1 and S2 heard. EXTREMITIES: Normal range of motion, no edema. No clubbing or cyanosis. Peripheral pulses intact. ASSESSMENT Peripheral edema secondary to hypoalbuminemia secondary to malnutrition and alcoholism Atrial arrhythmia with no evidence of atrial fibrillation Troponin elevation of unclear etiology or significance, not suggestive of an acute ischemic event Hypertension History of alcohol abuse PLAN Clinically stable on current medical regimen from a cardiac perspective. Ongoing medical management. We will follow along as needed, follow up upon discharge with Dr. Bernard. Nurse Practitioner note has been reviewed, I agree with a documented findings and plan of care. Patient was seen and examined. Objective - Vital Signs Vital signs: Vital Signs Temp 98.4 F 03/13/21 07:01 Pulse 62 03/13/21 07:35 Resp 16 03/13/21 07:35 BP 144/71 03/13/21 07:01 Pulse Ox 95 03/13/21 07:01 Intake & Output 03/12/21 03/13/21 03/13/21 18:59 06:59 18:59 Intake Total 410 10 Output Total 100 300 50 Balance 310 -300 -40 Weight 72 kg Intake: IV 70 10 Invasive Line 2 20 10 cefTRIAXone 1 gm In 50 Sodium Chloride 0.9% 50 ml @ 100 mls/hr IVPB Q24HR [facility] Rx#:[id number] Oral 340 0 Output: Urine 100 200 50 Post Void Residual 100 Other: Voiding Method Urinal Urinal Urinal # Voids 1 1 # Bowel Movements 1 1 - Labs CBC & Chem 7: 03/12/21 18:48 03/13/21 07:13 Labs: Abnormal Lab Results - Last 24 Hours (Table) 03/12/21 03/12/21 03/13/21 Range/Units 18:48 18:48 07:13 WBC 2.5 L (3.8-10.6) k/uL RBC 2.67 L (4.30-5.90) m/uL Hgb 9.3 L (13.0-17.5) gm/dL Hct 28.7 L (39.0-53.0) % MCV 107.3 H (80.0-100.0) fL Plt Count 107 L (150-450) k/uL Lymphocytes # (Manual) 0.48 L (1.0-4.8) k/uL Myelocytes # (Manual) 0.03 H (0) k/uL Calcium 7.1 L (8.4-10.2) mg/dL Delta Bilirubin 0.5 H (0.0-0.2) mg/dL AST 80 H (17-59) U/L Total Protein 4.5 L (6.3-8.2) g/dL Albumin 1.9 L (3.5-5.0) g/dL
--- NOTE | 2021-03-13 20:13 | P.PN ---
Subjective This is a pleasant 80 years old male with past medical history of asthma Patient was transferred from [facility] for bilateral lower extremity swelling and edema and scrotal and penile swelling as well. Patient states that he presents because of diarrhea and generalized swelling including the scrotum which has been going on for the last 2 months but he could not specify what prompted him to come to emergency room today. Patient is bedbound for about a year, nonweightbearing, he told me last time he walked about 6 months ago. Also he does not follow up with his [facility] doctor and last Several Months Ago. that's Why Mainly He Eats Juices and liquids.. He lost weight 190 down to 150. He denies smoking or illicit drugs, he drinks 4 cups of liquor every day H cup about 4 ounces He denies depression or suicidal thoughts. Vitals are stable, he is slightly tachycardic with heart rate 98-101. Breathing rate 18, blood pressure 153/101. Oxygen saturation 96% on room air Labs showing WBC of 3.5, hemoglobin 11.3 and 9.4, platelet count 142 and 105, with some evidence of mild pancytopenia BMP is unremarkable. creatinine is 1.0. Troponin is slightly elevated at 0.05 and 0.05. ALT is 56, AST 176. Bilirubin is normal at 1.2. ProBNP is slightly elevated at 35-60. Urine analysis showing RBCs of 40, WBC of 3, negative nitrite and trace leukocyte esterase. On reviewing the records from [facility] he has WBC of 4.8, hemoglobin 10.9, platelets 156. 2, potassium 4.5. BUN is 10 and creatinine 1.0, glucose is 124. ALT 60 and ASD more elevated at 190. Bilirubin normal at 1.1. ProBNP is 3270 and troponin 0.05. Normal TSH at 1.5. Urine analysis showing 3+ blood in urine. Chest x-ray showing no acute process but limited quality. EKG shows sinus tachycardia and 105, poor R-wave progression and ST depression on aVL, QTC is 466. 03/09/21 Patient awake alert, no dyspnea, no chest pain. He still have significant swelling in lower extremity and scrotum but that not associated with any shortness of breath and his Vitas looks stable. He has itching and some rash and excoriation antibiotic in the lower legs. Still looks like some fungal rash in the groins No scrotal tenderness. Neurologist evaluated the patient and recommended cystoscopy as an outpatient for his microscopic hematuria He still complaining of from choking although he presents well evaluation yesterday and we advance diet, we didn't barium swallow evaluation and it was negative. I team recommended EGD/colonoscopy however patient declined and wants to follow up with his [facility] as an [facility] His pancytopenia is a slightly worse today. However his platelet still 87 which is above 50 K therefore we kept him on heparin and wth close monitoring. His A1c is 4.3, para test panel is negative. Liver enzymes are slightly better. Ejection fraction 50-55%. Ultrasound of the leg is negative for DVT. Assembly Detailer recommended no further workup Stool wbc is also negative today. He is kept on CIWA score of 8-4 today. Physical therapy recommended subacute rehab. I discussed the case with anode worker who informed the adult protective services about him, we cannot get guardianship for him because he is fully awake and oriented. Patient has capacity to make decisions for himself. We provided permethrin and nystatin for his rash 03/10/2021 Patient was feeling more comfortable today morning he was more therapy and pleasant with the care and the progress he made in his improvement. His a swelling in the legs and scrotum is less, and he is kept on IV Lasix plus fluid restriction. His rash and excoriation especially in the buttocks and legs is improving after he was given permethrin and Benadryl as needed. However superimposed bacterial infection is suspected and ceftriaxone was started. His pro-consulted tone in his is slightly elevated at 0.23. He is hemodynamically stable. He has evidence of pancytopenia which is a stable or slightly better, mostly due to alcohol effect. Vitamin B12 checked and it is high. Liver enzymes slightly abnormal and they are improving. Creatinine is 1.3. He has evidence of malnutrition with hypoalbuminemia which is contributing to his edema. He was started on an sure He agreed today to undergo for EGD which shows Dooley's esophagus, patient explained about the nature of the precancerous lesions and he needs close outpatient follow-up and he agrees with the appointments made for him with GI service Today we have an extensive explanation for the patient for need for rehab, jose martinver he was adamant to go home because he has people and friends working in his house and that might cause him some money however he agrees with the appointments made for him with the [place] [facility] on 03/22. I called his [facility] office and discussed the care and problem list with his nurse practitioner, primary nurse practitioner Marta and her nurse Radha with a recommendation for need for outpatient GI referral and urologist referral to rule out cancers. They told me there are going to follow-up with the patient however he has been not shown up in the office for about a year, I explained that the patient and he confirmed to me several times she Dooley's esophagus His ejection fraction is 50-55% and ultrasound of the leg is negative for DVT. 03/11/2021 Last night patient developed tachycardia around 160 thought it was due to atrial fibrillation/flutter and construction trades teacher started him on Cardizem drip. Today he switched to oral metoprolol and construction trades teacher on reviewing the rhythm that looks only atrial tachycardia rather than atrial fibrillation. Also this could be related to his other medical issues including alcohol withdrawal, CIWA score was 19 yesterday and today and he is already covered with protocol with Ativan as needed. As well as thiamine. Other of vitals are stable. Labs showing stable pancytopenia, INR is a stable around 1.6. Anion stable around 1.24 and construction trades teacher to switch his IV Lasix to 20 mg by mouth twice a day. His edema is also improving. Fluid restriction Repeat chest x-ray today is negative. We will repeatcalcitonin and it is improving are negative then we may consider stopping for the skeleton antibiotic. Currently he is on ceftriaxone. His rash is improving. He found to have Dooley's esophagus however he is placed on regular diet and Protonix twice a day. He still itching around 50% of his male, not eating much at baseline and this is chronic for him. 03/12/2021 today he is doing well generally , he is comfortable in bed, no chest pain or dyspnea . He still afraid to eat although he passed a swallow evaluation and barium swallow test and EKG showing barium Dooley's esophagus he was encouraged to eat more however he is consuming liquid diet and ensure. Area today he was still tachycardic with heart rate about 140, construction trades teacher follow the patient, it is sinus tachycardia related to alcohol withdrawal and general medical issue was placed on metoprolol and does increase today to 50 mg twice a day. His CIWA score is 0, he does not need any medication for withdrawal anymore. He is afebrile. His creatinine actually better today to 1.2. His swelling is coming down and he was switched to oral Lasix by construction trades teacher. Rash is better and we switch his antibiotic ceftriaxone to Augmentin. His portcalcitonin is stable at 0.24 and is not worsening. His infection has been controlled. 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 C. diff is negative. Stool wbc is negative indicating against infection. He remains on Protonix for GI prophylaxis and treatment of his Doolye's esophagus Patient's wants to leave tomorrow because he has a letter from [place] asked him to show up before 03/14 otherwise he will lose his [facility] benefits, so he was adamant relieved by tomorrow. However looks like patient improving clinically and if he remains stable and proven than possible discharge in 24 hours Today he has some urine retention, so Flomax was added and urologist saw Dr. Sorto patient refused any procedure saw Dr. Sorto told me patient can follow-up as an outpatient 03/13/2021 His swelling improved and patient denies any specific symptoms, his labs and vi tals are stable. However patient is still refusing to eat because of low appetite His esophageal biopsy came back positive for Dooley's mucosa no dysplasia. He does not need any Ativan per CIWA and score 0. His Augmentin, Protonix twice a day and rate control with metoprolol also he is on Lasix by mouth 20 twice a day I discussed the case with him and his friend lionel at bedside upon patient request who will help him to take him to appointments Objective - Vital Signs Vital signs: Vital Signs Temp 98.4 F 03/13/21 07:01 Pulse 62 03/13/21 07:35 Resp 16 03/13/21 07:35 BP 144/71 03/13/21 07:01 Pulse Ox 95 03/13/21 07:01 Intake & Output 03/12/21 03/13/21 03/13/21 18:59 06:59 18:59 Intake Total 410 10 Output Total 100 300 50 Balance 310 -300 -40 Weight 72 kg Intake: IV 70 10 Invasive Line 2 20 10 cefTRIAXone 1 gm In 50 Sodium Chloride 0.9% 50 ml @ 100 mls/hr IVPB Q24HR [facility] Rx#:[id number] Oral 340 0 Output: Urine 100 200 50 Post Void Residual 100 Other: Voiding Method Urinal Urinal Urinal # Voids 1 1 # Bowel Movements 1 1 - Exam GENERAL: The patient is alert and oriented x3, not in any acute distress. Well developed, well nourished. HEENT: Pupils are round and equally reacting to light. EOMI. No scleral icterus. No conjunctival pallor. Normocephalic, atraumatic. No pharyngeal erythema. No thyromegaly. CARDIOVASCULAR: S1 and S2 present. No murmurs, rubs, or gallops. PULMONARY: Chest is clear to auscultation, no wheezing or crackles. -ABDOMEN: Soft, nontender, nondistended, normoactive bowel sounds. No palpable organomegaly. Tegretol swelling with no tenderness MUSCULOSKELETAL: No joint swelling or deformity. -EXTREMITIES: No cyanosis, clubbing, or bilateral pitting leg edema NEUROLOGICAL: Gross neurological examination did not reveal any focal deficits. -SKIN: Bilateral fungal rash in the groin, other rash with some excoriation in both buttocks and lower legs associated with itching. no petechiae. - Labs CBC & Chem 7: 03/12/21 18:48 03/13/21 07:13 Labs: Abnormal Lab Results - Last 24 Hours (Table) 03/12/21 03/12/21 03/13/21 Range/Units 18:48 18:48 07:13 WBC 2.5 L (3.8-10.6) k/uL RBC 2.67 L (4.30-5.90) m/uL Hgb 9.3 L (13.0-17.5) gm/dL Hct 28.7 L (39.0-53.0) % MCV 107.3 H (80.0-100.0) fL Plt Count 107 L (150-450) k/uL Lymphocytes # (Manual) 0.48 L (1.0-4.8) k/uL Myelocytes # (Manual) 0.03 H (0) k/uL Calcium 7.1 L (8.4-10.2) mg/dL Delta Bilirubin 0.5 H (0.0-0.2) mg/dL AST 80 H (17-59) U/L Total Protein 4.5 L (6.3-8.2) g/dL Albumin 1.9 L (3.5-5.0) g/dL Assessment and Plan Assessment: - Anasarca, 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 Improving - alcohol abuse associated with alcohol withdrawal - Mild microscopic hematuria, cystoscopy recommended as an outpatient - Elevated troponin. Unrelated to heart disease. 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 Patient refused rehab and he wants to go home - mild elements of cellulitis of the buttocks, improving - History of asthma, not an active issue - Hypertension - Mild pancytopenia, mostly secondary to alcohol affect . - Tachycardia, most likely atrial tachycardia rather than A. fib no need for anticoagulation per construction trades teacher - Mildly elevated liver enzymes, mostly secondary to alcohol affect, with ASD more than ALT. Improving - Malnutrition. Severe coronary protein malnutrition - Chronically bedbound - Deconditioning and bad self hygiene Plan: This is a pleasant 80 years old male who presents with anasarca, alcohol abuse Continue with CIWA protocol and Ativan as needed as well as thiamine. No need for more Ativan Lasix switched to oral . Continue with Fluid restriction 1200 mL per day Continue with Protonix and follow up with GI as an outpatient Cystoscopy as an outpatient for microscopic hematuria. Recommend subacute rehab upon discharge. Patient declines. Ordered home health care Added ensure Monitor for pancytopenia Continue with Augmentin Labs and medication were reviewed.. Continue same treatment. Continue with symptomatic treatment. Resume home medication. Monitor lytes and vitals. DVT and GI prophylaxis. Further recommendations depends on the clinical course of the patient DVT prophylaxis: Subcutaneous heparin GI Prophylaxis: Pepcid PT/OT: OSIEL, patient declines. He wants to go home Prognosis is guarded Possible discharge in 24 hours
[2021-03-14] MEDS: AMOXIC-POT CLAV 875-125MG 1 EACH TAB PO SCH ×2 (06:27→19:07)
[2021-03-14] MEDS: THIAMINE 100 MG TAB PO SCH ×2 (06:28→16:24)
[2021-03-14] MEDS: PANTOPRAZOLE 40 MG TABLET PO SCH ×2 (06:28→16:24)
[2021-03-14] MEDS: HEPARIN SODIUM,PORCINE/PF 5,000 UNIT/0.5 ML SYRINGE SQ SCH ×2 (08:12→22:06)
[2021-03-14] MEDS: TAMSULOSIN 0.4 MG CAP.ER.24H PO SCH (08:12)
[2021-03-14] MEDS: METOPROLOL TARTRATE 25 MG TAB PO SCH ×2 (08:12→22:06)
[2021-03-14] MEDS: FUROSEMIDE 20 MG TAB PO SCH ×2 (08:12→22:06)
[2021-03-14] MEDS: NYSTATIN 100,000UNIT/GM CREAM 30 GM TUBE TOPICAL SCH ×2 (08:13→22:07)
[2021-03-14] MEDS: ALBUTEROL NEBULIZED 2.5 MG/3 ML INHALATION PRN (09:46)
--- NOTE | 2021-03-14 20:54 | P.PN ---
Subjective This is a pleasant 80 years old male with past medical history of asthma Patient was transferred from [facility] for bilateral lower extremity swelling and edema and scrotal and penile swelling as well. Patient states that he presents because of diarrhea and generalized swelling including the scrotum which has been going on for the last 2 months but he could not specify what prompted him to come to emergency room today. Patient is bedbound for about a year, nonweightbearing, he told me last time he walked about 6 months ago. Also he does not follow up with his [facility] doctor and last Several Months Ago. that's Why Mainly He Eats Juices and liquids.. He lost weight 190 down to 150. He denies smoking or illicit drugs, he drinks 4 cups of liquor every day H cup about 4 ounces He denies depression or suicidal thoughts. Vitals are stable, he is slightly tachycardic with heart rate 98-101. Breathing rate 18, blood pressure 153/101. Oxygen saturation 96% on room air Labs showing WBC of 3.5, hemoglobin 11.3 and 9.4, platelet count 142 and 105, with some evidence of mild pancytopenia BMP is unremarkable. creatinine is 1.0. Troponin is slightly elevated at 0.05 and 0.05. ALT is 56, AST 176. Bilirubin is normal at 1.2. ProBNP is slightly elevated at 35-60. Urine analysis showing RBCs of 40, WBC of 3, negative nitrite and trace leukocyte esterase. On reviewing the records from [facility] he has WBC of 4.8, hemoglobin 10.9, platelets 156. 2, potassium 4.5. BUN is 10 and creatinine 1.0, glucose is 124. ALT 60 and ASD more elevated at 190. Bilirubin normal at 1.1. ProBNP is 3270 and troponin 0.05. Normal TSH at 1.5. Urine analysis showing 3+ blood in urine. Chest x-ray showing no acute process but limited quality. EKG shows sinus tachycardia and 105, poor R-wave progression and ST depression on aVL, QTC is 466. 03/09/21 Patient awake alert, no dyspnea, no chest pain. He still have significant swelling in lower extremity and scrotum but that not associated with any shortness of breath and his Vitas looks stable. He has itching and some rash and excoriation antibiotic in the lower legs. Still looks like some fungal rash in the groins No scrotal tenderness. Neurologist evaluated the patient and recommended cystoscopy as an outpatient for his microscopic hematuria He still complaining of from choking although he presents well evaluation yesterday and we advance diet, we didn't barium swallow evaluation and it was negative. I team recommended EGD/colonoscopy however patient declined and wants to follow up with [facility] as [facility] His pancytopenia is a slightly worse today. However his platelet still 87 which is above 50 K therefore we kept him on heparin and wth close monitoring. His A1c is 4.3, para test panel is negative. Liver enzymes are slightly better. Ejection fraction 50-55%. Ultrasound of the leg is negative for DVT. Police Stenographer recommended no further workup Stool wbc is also negative today. He is kept on CIWA score of 8-4 today. Physical therapy recommended subacute rehab. I discussed the case with social work nurse who informed the adult protective services about him, we cannot get guardianship for him because he is fully awake and oriented. Patient has capacity to make decisions for himself. We provided permethrin and nystatin for his rash 03/10/2021 Patient was feeling more comfortable today morning he was more therapy and pleasant with the care and the progress he made in his improvement. His a swelling in the legs and scrotum is less, and he is kept on IV Lasix plus fluid restriction. His rash and excoriation especially in the buttocks and legs is improving after he was given permethrin and Benadryl as needed. However superimposed bacterial infection is suspected and ceftriaxone was started. His pro-consulted tone in his is slightly elevated at 0.23. He is hemodynamically stable. He has evidence of pancytopenia which is a stable or slightly better, mostly due to alcohol effect. Vitamin B12 checked and it is high. Liver enzymes slightly abnormal and they are improving. Creatinine is 1.3. He has evidence of malnutrition with hypoalbuminemia which is contributing to his edema. He was started on an sure He agreed today to undergo for EGD which shows Dooley's esophagus, patient explained about the nature of the precancerous lesions and he needs close outpatient follow-up and he agrees with the appointments made for him with GI service Today we have an extensive explanation for the patient for need for rehab, jose martinver he was adamant to go home because he has people and friends working in his house and that might cause him some money however he agrees with the appointments made for him with the [facility] on 03/22. I called his [facility] office and discussed the care and problem list with his nurse practitioner, primary nurse practitioner Marta and her nurse Radha with a recommendation for need for outpatient GI referral and urologist referral to rule out cancers. They told me there are going to follow-up with the patient however he has been not shown up in the office for about a year, I explained that the patient and he confirmed to me several times she Dooley's esophagus His ejection fraction is 50-55% and ultrasound of the leg is negative for DVT. 03/11/2021 Last night patient developed tachycardia around 160 thought it was due to atrial fibrillation/flutter and greenhouse or nursery transplanter started him on Cardizem drip. Today he switched to oral metoprolol and greenhouse or nursery transplanter on reviewing the rhythm that looks only atrial tachycardia rather than atrial fibrillation. Also this could be related to his other medical issues including alcohol withdrawal, CIWA score was 19 yesterday and today and he is already covered with protocol with Ativan as needed. As well as thiamine. Other of vitals are stable. Labs showing stable pancytopenia, INR is a stable around 1.6. Anion stable around 1.24 and greenhouse or nursery transplanter to switch his IV Lasix to 20 mg by mouth twice a day. His edema is also improving. Fluid restriction Repeat chest x-ray today is negative. We will repeatcalcitonin and it is improving are negative then we may consider stopping for the skeleton antibiotic. Currently he is on ceftriaxone. His rash is improving. He found to have Dooley's esophagus however he is placed on regular diet and Protonix twice a day. He still itching around 50% of his male, not eating much at baseline and this is chronic for him. 03/12/2021 today he is doing well generally , he is comfortable in bed, no chest pain or dyspnea . He still afraid to eat although he passed a swallow evaluation and barium swallow test and EKG showing barium Dooley's esophagus he was encouraged to eat more however he is consuming liquid diet and ensure. Area today he was still tachycardic with heart rate about 140, greenhouse or nursery transplanter follow the patient, it is sinus tachycardia related to alcohol withdrawal and general medical issue was placed on metoprolol and does increase today to 50 mg twice a day. His CIWA score is 0, he does not need any medication for withdrawal anymore. He is afebrile. His creatinine actually better today to 1.2. His swelling is coming down and he was switched to oral Lasix by greenhouse or nursery transplanter. Rash is better and we switch his antibiotic ceftriaxone to Augmentin. His portcalcitonin is stable at 0.24 and is not worsening. His infection has been controlled. 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 C. diff is negative. Stool wbc is negative indicating against infection. He remains on Protonix for GI prophylaxis and treatment of his Dooley's esophagus Patient's wants to leave tomorrow because he has a letter from [place] asked him to show up before 03/14 otherwise he will lose his VA benefits, so he was adamant relieved by tomorrow. However looks like patient improving clinically and if he remains stable and proven than possible discharge in 24 hours Today he has some urine retention, so Flomax was added and urologist saw Dr. Sorto patient refused any procedure saw Dr. Sorto told me patient can follow-up as an outpatient 03/13/2021 His swelling improved and patient denies any specific symptoms, his labs and vi tals are stable. However patient is still refusing to eat because of low appetite His esophageal biopsy came back positive for Dooley's mucosa no dysplasia. He does not need any Ativan per CIWA and score 0. His Augmentin, Protonix twice a day and rate control with metoprolol also he is on Lasix by mouth 20 twice a day I discussed the case with him and his friend lionel at bedside upon patient request who will help him to take him to appointments 03/14/2021 Patient is awake and alert, does not look in distress, denies any specific complaints, he denies chest pain or dyspnea or abdominal pain or nausea vomiting. No headache. However patient still not eating well over the last 2 days he ate 2 meals with 25% only. He was is several bottles of ensure is at bedside but not sure how many he consumed of these. We checked his weight and his dropped from 81.5 kg on 03/11 down to 71 kg today. Although this could be because of his ongoing diarrhea and he is on oral Lasix where he has negative balance with less than 2 L. Today I offered for the patient placement of PEG tube for nutrition support however he declined, risks including but not limited to are explained to him however he is adamant to declined it. He wants to go home because he misses his pits however he lives with his own stain in bed, which is all the time, less interactive. Because of his history of significant alcohol went down to consult psychiatry service to assess capacity. Also there was no GI service in this facility during this week although last week.I offered patient was transfer him to a tertiary care center for higher level of care but he declined Today he is allowing me to talk to his daughter Rubia who is a geriatric nurse in [facility] with #[phone], I called but no answer. We will try again tomorrow. However nurse couldn't talk with the daughter ask for social work nurse consult to contact her. Vitals are stable. He had asymptomatic runs of 10 beats of V. tach. He is already on metoprolol 50 mg twice a day. Objective - Vital Signs Vital signs: Vital Signs Temp 98.7 F 03/14/21 07:53 Pulse 92 03/14/21 09:58 Resp 18 03/14/21 07:53 BP 161/91 03/14/21 07:53 Pulse Ox 94 L 03/14/21 07:53 Intake & Output 03/13/21 03/14/21 03/14/21 18:59 06:59 18:59 Intake Total 20 10 0 Output Total 450 420 Balance -430 -410 0 Weight 72 kg 74.5 kg 71 kg Intake: IV 20 10 Invasive Line 2 20 10 Oral 0 0 Output: Urine 450 420 Other: Voiding Method Urinal Urinal # Voids 1 # Bowel Movements 1 - Exam -GENERAL: The patient is alert and oriented x3, not in any acute distress. Cachectic HEENT: Pupils are round and equally reacting to light. EOMI. No scleral icterus. No conjunctival pallor. Normocephalic, atraumatic. No pharyngeal erythema. No thyromegaly. CARDIOVASCULAR: S1 and S2 present. No murmurs, rubs, or gallops. PULMONARY: Chest is clear to auscultation, no wheezing or crackles. -ABDOMEN: Soft, nontender, nondistended, normoactive bowel sounds. No palpable organomegaly. Scrotal swelling, improving MUSCULOSKELETAL: No joint swelling or deformity. -EXTREMITIES: No cyanosis, clubbing, or bilateral pitting leg edema NEUROLOGICAL: Gross neurological examination did not reveal any focal deficits. -SKIN: Bilateral fungal rash in the groin, other rash with some excoriation in both buttocks and lower legs associated with itching. Improving no petechiae. 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 Improving - alcohol abuse associated with alcohol withdrawal - Mild microscopic hematuria, cystoscopy recommended as an outpatient - Elevated troponin. Unrelated to heart disease. 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 Patient refused rehab and he wants to go home - mild elements of cellulitis of the buttocks, improving - History of asthma, not an active issue - Hypertension - Mild pancytopenia, mostly secondary to alcohol affect . - Tachycardia, most likely atrial tachycardia rather than A. fib no need for anticoagulation per greenhouse or nursery transplanter - Mildly elevated liver enzymes, mostly secondary to alcohol affect, with ASD more than ALT. Improving - Malnutrition. Severe coronary protein malnutrition - Chronically bedbound - Deconditioning and bad self hygiene - Bedridden with significantly reduced functional capacity. Plan: This is a pleasant 80 years old male who presents with anasarca, alcohol abuse Patient offered PEG tube but he declined. Patient encourage oral intake he said he will try today. Contact family, call daughter Rubia with no answer Dietary consult. Continue with ensure Psychiatric consult to assess capacity and to rule out depression Lasix switched to oral . Continue with Fluid restriction 1200 mL per day Continue with Protonix and follow up with GI as an outpatient Cystoscopy as an outpatient for microscopic hematuria. Recommend subacute rehab upon discharge. Patient declines. Ordered home health care Continue with Augmentin Labs and medication were reviewed.. Continue same treatment. Continue with symptomatic treatment. Resume home medication. Monitor lytes and vitals. DVT and GI prophylaxis. Further recommendations depends on the clinical course of the patient DVT prophylaxis: Subcutaneous heparin GI Prophylaxis: Pepcid PT/OT: OSIEL, patient declines. He wants to go home Prognosis is guarded
[2021-03-14 21:59] LABS: HGB 9.8 gm/dL (13.0-17.5); MCH 36.1 pg (25.0-35.0); MCHC 33.6 g/dL (31.0-37.0); MCV 107.5 fL (80.0-100.0); Macrocytosis Moderate; Mean Platelet Volume 10.1; Platelet Count 119 k/uL (150-450); RDW 12.9 % (11.5-15.5); WBC 2.1 k/uL (3.8-10.6)
[2021-03-14 22:13] LABS: Albumin 2.1 g/dL (3.5-5.0); Bilirubin, Delta 0.5 mg/dL (0.0-0.2); Bilirubin,Unconjugated 0.2 mg/dL (0.0-1.1); Calcium 7.2 mg/dL (8.4-10.2); Magnesium 1.8 mg/dL (1.6-2.3); Potassium 3.4 mmol/L (3.5-5.1); Total Bilirubin 0.7 mg/dL (0.2-1.3); Total Protein 4.8 g/dL (6.3-8.2)
[2021-03-14 22:46] LABS: Lymphocytes # (M) 0.61 k/uL (1.0-4.8); Monocytes # (M) 0.32 k/uL (0-1.0); Neutrophils # (M) 1.18 k/uL (1.3-7.7); Neutrophils % (M) 56 %; Nucleated Red Blood Cells 0 /100 WBC (0-0); Total Cells Counted 100
[2021-03-15] MEDS: PANTOPRAZOLE 40 MG TABLET PO SCH ×2 (06:30→16:32)
[2021-03-15] MEDS: THIAMINE 100 MG TAB PO SCH ×2 (06:30→16:32)
[2021-03-15] MEDS: AMOXIC-POT CLAV 875-125MG 1 EACH TAB PO SCH ×2 (06:30→17:27)
[2021-03-15] MEDS ORDERED: MAGNESIUM SULFATE-D5W PMX 1 GM in DEXTROSE/WATER 1 100ML.BAG IVPB ONE (08:00)
[2021-03-15] MEDS: METOPROLOL TARTRATE 25 MG TAB PO SCH ×2 (09:36→21:41)
[2021-03-15] MEDS: FUROSEMIDE 20 MG TAB PO SCH ×2 (09:36→21:41)
[2021-03-15] MEDS: HEPARIN SODIUM,PORCINE/PF 5,000 UNIT/0.5 ML SYRINGE SQ SCH ×2 (09:36→21:41)
[2021-03-15] MEDS: TAMSULOSIN 0.4 MG CAP.ER.24H PO SCH (09:36)
[2021-03-15] MEDS: POTASSIUM CHLORIDE 10 MEQ in WATER FOR INJECTION 1 100ML.BAG IVPB SCH ×2 (09:36→11:52)
[2021-03-15] MEDS: ALBUTEROL NEBULIZED 2.5 MG/3 ML INHALATION PRN (09:42)
[2021-03-15] MEDS: NYSTATIN 100,000UNIT/GM CREAM 30 GM TUBE TOPICAL SCH ×2 (12:42→21:42)
[2021-03-15] MEDS: MEGESTROL 400 MG/10 ML CUP PO SCH (13:27)
--- NOTE | 2021-03-15 13:40 | P.CN ---
Psychiatric Consult - . Consult date: 03/15/21 Consult:: 03/15/21 13:39 IDENTIFYING DATA: This patient is a twice-, retired, 80-year-old male with significant history of alcohol use disorder, and asthma who presented to this hospital for generalized swelling HISTORY OF PRESENT ILLNESS: The patient presented to the hospital 03/07/2021. The patient has had a long and complicated hospital stay as the patient is being treated for malnutrition, anasarca, alcohol abuse, Dooley's esophagus, and deconditioning. The patient was offered PEG tube basement for nutrition on 03/14/21, however he declined. Psychiatry has been consulted for evaluation for capacity and for his alcohol use disorder. Currently, the patient is reporting that he is feeling like he wants to go home. He states that he misses his bed. He is currently not endorsing any significant symptoms regarding his mood. He is not endorsing any significant symptoms of depression or enrique. He reports no suicidal or homicidal ideation, intention, and/or plan. He denies any access to firearms or other weapons at this time. He reports no prior attempts at suicide. The patient is denying any auditory or visual hallucinations. He is not reporting any paranoia or delusions. Regards to PEG tube placement, the patient states that he is now agreeable to have the PEG tube placed as he discussed this plan with his daughter. His daughter is a geriatric nurse in [place]. He states that he would be staying with her and she would be able to manage his PEG tube. The patient does understand that if he was not to have the PEG tube in place, he increases his risk for further competitions and his health and eventually . In regards to his alcohol use disorder, the patient states that he began drinking heavily one year ago as his physical health began to decline. He reports that he has been drinking between 5-10 alcoholic beverages per night. He states that prior to a year ago, the patient was a very rare drinker. He currently denies any tobacco or illicit drug use. He does report that he smokes marijuana once per week. PAST PSYCHIATRIC HISTORY: Patient denies any significant history of psychiatric illness. Patient denies being on any psychiatric medications. Patient denies any previous psychiatric hospitalizations. Patient denies any psychiatric outpatient follow-up. Patient denies any history of suicide attempts in the past. PAST MEDICAL HISTORY: Past Medical History: Asthma History of Any Multi-Drug Resistant Organisms: None Reported Past Surgical History: No Surgical Hx Reported Past Psychological History: ADD/ADHD Smoking Status: Never smoker Past Alcohol Use History: Occasional Past Drug Use History: Marijuana ALLERGIES: NO KNOWN DRUG ALLERGIES Vital Signs Temp 98.7 F 03/15/21 12:35 Pulse 69 03/15/21 12:35 Resp 18 03/15/21 12:35 BP 134/74 03/15/21 12:35 Pulse Ox 94 L 03/15/21 12:35 Intake & Output 03/14/21 03/15/21 03/15/21 18:59 06:59 18:59 Intake Total 240 240 Output Total 1010 Balance 240 -1010 240 Weight 71 kg 76.5 kg Intake: Oral 240 240 Output: Urine 650 Stool 360 Other: Voiding Method Urinal Urinal # Voids 0 1 # Bowel Movements 2 Laboratory Results - Last 24 Hours 03/14/21 03/14/21 21:39 21:39 WBC 2.1 L RBC 2.70 L Hgb 9.8 L Hct 29.0 L MCV 107.5 H MCH 36.1 H MCHC 33.6 RDW 12.9 Plt Count 119 L MPV 10.1 Neutrophils % (Manual) 56 Lymphocytes % (Manual) 29 Monocytes % (Manual) 15 Neutrophils # (Manual) 1.18 L Lymphocytes # (Manual) 0.61 L Monocytes # (Manual) 0.32 Nucleated RBCs 0 Manual Slide Review Performed Macrocytosis Moderate Sodium 138 Potassium 3.4 L Chloride 105 Carbon Dioxide 29 Anion Gap 4 BUN 15 Creatinine 1.05 Est GFR (CKD-EPI)AfAm 79 Est GFR (CKD-EPI)NonAf 68 Glucose 101 H Calcium 7.2 L Magnesium 1.8 Total Bilirubin 0.7 Conjugated Bilirubin 0.0 Unconjugated Bilirubin 0.2 Delta Bilirubin 0.5 H AST 71 H ALT 25 Alkaline Phosphatase 55 Total Protein 4.8 L Albumin 2.1 L CHEMICAL DEPENDENCY HISTORY: The patient reports that he has been drinking between 5-10 alcoholic beverages per night his last drink being the day prior to his admission to this hospital. He denies any history of rehabilitation or detox. He reports no history of withdrawal seizures or DTs. He denies any tobacco use or illicit drug use. He reports that he would smoke marijuana occasionally, approximately once per week. FAMILY PSYCHIATRIC/SUBSTANCE USE HISTORY: Patient does not recall any significant family psychiatric history or family history of substance abuse. SOCIAL HISTORY: Patient was born and raised in [place], [place]. The patient is 1 of 7 children. He reports that his father was a custom homebuilder and built many big and grand homes in the [place] [facility]. He describes his childhood as great and loving. The patient served in the [employer] on the [employer] and was present during the [place] missile crisis. He was honorably discharged in 1963. 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 He has his GED. 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 MENTAL STATUS EXAM: General Appearance: Patient appears to be stated age is alert, pleasant, and cooperative. Patient appears to have fair hygiene and grooming wearing hospital gown with fair eye contact. Behavior: Patient is calmly lying in bed without any agitated behavior. Eye contact is appropriate. Speech: Patient's speech is fluent and nonpressured. Spontaneous, normal rate, tone, and volume. Mood/Affect: Patient reports their mood is "feeling better", affect is congruent and bright Suicidality/Homicidality: Patient denies having any suicidal or homicidal ideation intent or plan. Perceptions: Patient denies any visual hallucinations and denies any auditory hallucinations Though content/process: There is no evidence of any delusional thought content and thought process is linear and goal-directed. Memory and concentration: AOX3, grossly intact for the purposes of this session. Can spell "WORLD" backwards Judgment and insight: Good MMSE: On Mini-Mental Status Examination the patient scored 29 out of 30. The only deficit that the patient displayed was difficulty with the serial sevens but is otherwise displaying intact cognitive abilities. IMPRESSIONS: -Alcohol use disorder PLAN: -At this time patient DOES NOT meet criteria for inpatient psychiatric admission. The patient is not presenting with any imminent risk of harm to self or others. He is not actively psychotic. He is future oriented and states that he will be staying with his daughter upon discharge. -Patient DOES have decision making capacity at this time and is able to reason through and communicate/appreciate the risks, benefits and alternatives to treatment. He is agreeable to PEG tube placement at this time. -Patient was counseled at length on his alcohol use disorder and the importance of cutting down his alcohol use as it is negatively affecting his health. -Delirium precautions recommended with patient including - avoiding use of narcotics and ASSISTANT BOOKKEEPER sedatives, limit anticholinergic medications when possible, frequent re-orientation, minimize use of restraints, open window shades during the day and close them at night -Would recommend the following medication changes/additions: No medication recommendations made at this time. -Psychiatry will sign off at this point, please contact with any questions. 03/15/21 13:39
[2021-03-15] MEDS: MULTIVITAMINS, THERA LIQUID 237 ML BOTTLE PO SCH (16:31)
[2021-03-16] MEDS: TAMSULOSIN 0.4 MG CAP.ER.24H PO SCH (13:30)
[2021-03-16] MEDS: PANTOPRAZOLE 40 MG TABLET PO SCH ×2 (13:30→17:27)
[2021-03-16] MEDS: THIAMINE 100 MG TAB PO SCH ×2 (13:30→17:27)
[2021-03-16] MEDS: AMOXIC-POT CLAV 875-125MG 1 EACH TAB PO SCH ×2 (13:30→17:27)
[2021-03-16] MEDS: HEPARIN SODIUM,PORCINE/PF 5,000 UNIT/0.5 ML SYRINGE SQ SCH ×2 (13:31→19:24)
[2021-03-16] MEDS: MULTIVITAMINS, THERA LIQUID 237 ML BOTTLE PO SCH (13:32)
[2021-03-16] MEDS: NYSTATIN 100,000UNIT/GM CREAM 30 GM TUBE TOPICAL SCH (13:32)
--- NOTE | 2021-03-16 15:01 | P.PN ---
Subjective This is a pleasant 80 years old male with past medical history of asthma Patient was transferred from [facility] for bilateral lower extremity swelling and edema and scrotal and penile swelling as well. Patient states that he presents because of diarrhea and generalized swelling including the scrotum which has been going on for the last 2 months but he could not specify what prompted him to come to emergency room today. Patient is bedbound for about a year, nonweightbearing, he told me last time he walked about 6 months ago. Also he does not follow up with his [facility] doctor and last Several Months Ago. that's Why Mainly He Eats Juices and liquids.. He lost weight 190 down to 150. He denies smoking or illicit drugs, he drinks 4 cups of liquor every day H cup about 4 ounces He denies depression or suicidal thoughts. Vitals are stable, he is slightly tachycardic with heart rate 98-101. Breathing rate 18, blood pressure 153/101. Oxygen saturation 96% on room air Labs showing WBC of 3.5, hemoglobin 11.3 and 9.4, platelet count 142 and 105, with some evidence of mild pancytopenia BMP is unremarkable. creatinine is 1.0. Troponin is slightly elevated at 0.05 and 0.05. ALT is 56, AST 176. Bilirubin is normal at 1.2. ProBNP is slightly elevated at 35-60. Urine analysis showing RBCs of 40, WBC of 3, negative nitrite and trace leukocyte esterase. On reviewing the records from [facility] he has WBC of 4.8, hemoglobin 10.9, platelets 156. 2, potassium 4.5. BUN is 10 and creatinine 1.0, glucose is 124. ALT 60 and ASD more elevated at 190. Bilirubin normal at 1.1. ProBNP is 3270 and troponin 0.05. Normal TSH at 1.5. Urine analysis showing 3+ blood in urine. Chest x-ray showing no acute process but limited quality. EKG shows sinus tachycardia and 105, poor R-wave progression and ST depression on aVL, QTC is 466. 03/09/21 Patient awake alert, no dyspnea, no chest pain. He still have significant swelling in lower extremity and scrotum but that not associated with any shortness of breath and his Vitas looks stable. He has itching and some rash and excoriation antibiotic in the lower legs. Still looks like some fungal rash in the groins No scrotal tenderness. Neurologist evaluated the patient and recommended cystoscopy as an outpatient for his microscopic hematuria He still complaining of from choking although he presents well evaluation yesterday and we advance diet, we didn't barium swallow evaluation and it was negative. I team recommended EGD/colonoscopy however patient declined and wants to follow up with his GI office as an outpatient [facility] His pancytopenia is a slightly worse today. However his platelet still 87 which is above 50 K therefore we kept him on heparin and wth close monitoring. His A1c is 4.3, para test panel is negative. Liver enzymes are slightly better. Ejection fraction 50-55%. Ultrasound of the leg is negative for DVT. Economic Historian recommended no further workup Stool wbc is also negative today. He is kept on CIWA score of 8-4 today. Physical therapy recommended subacute rehab. I discussed the case with social sciences chair who informed the adult protective services about him, we cannot get guardianship for him because he is fully awake and oriented. Patient has capacity to make decisions for himself. We provided permethrin and nystatin for his rash 03/10/2021 Patient was feeling more comfortable today morning he was more therapy and pleasant with the care and the progress he made in his improvement. His a swelling in the legs and scrotum is less, and he is kept on IV Lasix plus fluid restriction. His rash and excoriation especially in the buttocks and legs is improving after he was given permethrin and Benadryl as needed. However superimposed bacterial infection is suspected and ceftriaxone was started. His pro-consulted tone in his is slightly elevated at 0.23. He is hemodynamically stable. He has evidence of pancytopenia which is a stable or slightly better, mostly due to alcohol effect. Vitamin B12 checked and it is high. Liver enzymes slightly abnormal and they are improving. Creatinine is 1.3. He has evidence of malnutrition with hypoalbuminemia which is contributing to his edema. He was started on an sure He agreed today to undergo for EGD which shows Dooley's esophagus, patient explained about the nature of the precancerous lesions and he needs close outpatient follow-up and he agrees with the appointments made for him with GI service Today we have an extensive explanation for the patient for need for rehab, jose martinver he was adamant to go home because he has people and friends working in his house and that might cause him some money however he agrees with the appointments made for him with the [facility] on 03/22. I called his [facility] office and discussed the care and problem list with his nurse practitioner, primary nurse practitioner Marta and her nurse Radha with a recommendation for need for outpatient GI referral and urologist referral to rule out cancers. They told me there are going to follow-up with the patient however he has been not shown up in the office for about a year, I explained that the patient and he confirmed to me several times she Dooley's esophagus His ejection fraction is 50-55% and ultrasound of the leg is negative for DVT. 03/11/2021 Last night patient developed tachycardia around 160 thought it was due to atrial fibrillation/flutter and hydrogen operator started him on Cardizem drip. Today he switched to oral metoprolol and hydrogen operator on reviewing the rhythm that looks only atrial tachycardia rather than atrial fibrillation. Also this could be related to his other medical issues including alcohol withdrawal, CIWA score was 19 yesterday and today and he is already covered with protocol with Ativan as needed. As well as thiamine. Other of vitals are stable. Labs showing stable pancytopenia, INR is a stable around 1.6. Anion stable around 1.24 and hydrogen operator to switch his IV Lasix to 20 mg by mouth twice a day. His edema is also improving. Fluid restriction Repeat chest x-ray today is negative. We will repeatcalcitonin and it is improving are negative then we may consider stopping for the skeleton antibiotic. Currently he is on ceftriaxone. His rash is improving. He found to have Dooley's esophagus however he is placed on regular diet and Protonix twice a day. He still itching around 50% of his male, not eating much at baseline and this is chronic for him. 03/12/2021 today he is doing well generally , he is comfortable in bed, no chest pain or dyspnea . He still afraid to eat although he passed a swallow evaluation and barium swallow test and EKG showing barium Dooley's esophagus he was encouraged to eat more however he is consuming liquid diet and ensure. Area today he was still tachycardic with heart rate about 140, hydrogen operator follow the patient, it is sinus tachycardia related to alcohol withdrawal and general medical issue was placed on metoprolol and does increase today to 50 mg twice a day. His CIWA score is 0, he does not need any medication for withdrawal anymore. He is afebrile. His creatinine actually better today to 1.2. His swelling is coming down and he was switched to oral Lasix by hydrogen operator. Rash is better and we switch his antibiotic ceftriaxone to Augmentin. His portcalcitonin is stable at 0.24 and is not worsening. His infection has been controlled. 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 C. diff is negative. Stool wbc is negative indicating against infection. He remains on Protonix for GI prophylaxis and treatment of his Dooley's esophagus Patient's wants to leave tomorrow because he has a letter from [place] asked him to show up before 03/14 otherwise he will lose his VA benefits, so he was adamant relieved by tomorrow. However looks like patient improving clinically and if he remains stable and proven than possible discharge in 24 hours Today he has some urine retention, so Flomax was added and urologist saw Dr. Sorto patient refused any procedure saw Dr. Sorto told me patient can follow-up as an outpatient 03/13/2021 His swelling improved and patient denies any specific symptoms, his labs and vi tals are stable. However patient is still refusing to eat because of low appetite His esophageal biopsy came back positive for Dooley's mucosa no dysplasia. He does not need any Ativan per CIWA and score 0. His Augmentin, Protonix twice a day and rate control with metoprolol also he is on Lasix by mouth 20 twice a day I discussed the case with him and his friend lionel at bedside upon patient request who will help him to take him to appointments 03/14/2021 Patient is awake and alert, does not look in distress, denies any specific complaints, he denies chest pain or dyspnea or abdominal pain or nausea vomiting. No headache. However patient still not eating well over the last 2 days he ate 2 meals with 25% only. He was is several bottles of ensure is at bedside but not sure how many he consumed of these. We checked his weight and his dropped from 81.5 kg on 03/11 down to 71 kg today. Although this could be because of his ongoing diarrhea and he is on oral Lasix where he has negative balance with less than 2 L. Today I offered for the patient placement of PEG tube for nutrition support however he declined, risks including but not limited to are explained to him however he is adamant to declined it. He wants to go home because he misses his pits however he lives with his own stain in bed, which is all the time, less interactive. Because of his history of significant alcohol went down to consult psychiatry service to assess capacity. Also there was no GI service in this facility during this week although last week.I offered patient was transfer him to a tertiary care center for higher level of care but he declined Today he is allowing me to talk to his daughter Rubia who is a geriatric nurse in [facility] with #[phone], I called but no answer. We will try again tomorrow. However nurse couldn't talk with the daughter ask for social sciences chair consult to contact her. Vitals are stable. He had asymptomatic runs of 10 beats of V. tach. He is already on metoprolol 50 mg twice a day. 03/15/2021 Patient still not eating much he ate 25% of last dinner lunch and he stated that his 50% of this morning breakfast. I discussed the case with dietitian Marcie and she agrees that the patient is consuming less than the recommended diet intake for him and is deficient in tolerate and proteins commended PEG tube same to medical team recommendation of yesterday. And that he has no new symptoms, he was hemodynamically stable. 2 runs of V. tach yesterday and evaluated by hydrogen operator most likely to hypokalemia and potassium and magnesium is been replaced today. Upon patient request yesterday and today, I called his daughter Rubia at [phone] . I discussed the case with her including recommendation for PEG tube for severe mentation and los s of appetite and she wanted to try appetite stimulant for 2 days back today and tomorrow before deciding about PEG tube although she would not may did generally as she told me. Also I discussed with her all his medical problems with recommendation for outpatient follow-up including with GI, cardiology, [facility] clinic and urology. Also risk Of cancer explained to her and she verbalized understanding and acceptance. Daughter is willing to take her father back to [place] and she attempted to come and visit him so in the next few days. 03/16/2021 Patient is awake and alert, clinically looks the same. Today he agreed for PEG tube placement, I called his daughter Rubia and she agreeable to. Surgical team consulted Blood pressure is slightly on the high side. Still have mild diarrhea and is losing weight. His weight today 75.5 kg. His bladder scan 230. Because of his loss of weight and ongoing diarrhea were going to order CT of the chest, abdomen and pelvis with oral contrast only. Objective - Vital Signs Vital signs: Vital Signs Temp 98.4 F 03/16/21 12:00 Pulse 80 03/16/21 13:36 Resp 16 03/16/21 13:36 BP 177/88 03/16/21 12:00 Pulse Ox 98 03/16/21 12:00 Intake & Output 03/15/21 03/16/21 03/16/21 18:59 06:59 18:59 Intake Total 240 60 Output Total 600 1910 Balance -360 -1909 60 Weight 76.5 kg 75.5 kg 75.5 kg Intake: Intake, IV Titration 60 Amount Sodium Chloride 0.9% 500 60 ml 500 ml @ 0 mls/hr IV . [employer] ONE Rx#: [id number] Oral 240 Output: Urine 300 780 Post Void Residual 230 Stool 300 900 Other: Voiding Method Urinal Urinal # Voids 1 # Bowel Movements 1 - Exam -GENERAL: The patient is alert and oriented x3, not in any acute distress. Cachectic HEENT: Pupils are round and equally reacting to light. EOMI. No scleral icterus. No conjunctival pallor. Normocephalic, atraumatic. No pharyngeal erythema. No thyromegaly. CARDIOVASCULAR: S1 and S2 present. No murmurs, rubs, or gallops. PULMONARY: Chest is clear to auscultation, no wheezing or crackles. -ABDOMEN: Soft, nontender, nondistended, normoactive bowel sounds. No palpable organomegaly. Scrotal swelling, improving MUSCULOSKELETAL: No joint swelling or deformity. -EXTREMITIES: No cyanosis, clubbing, or bilateral pitting leg edema NEUROLOGICAL: Gross neurological examination did not reveal any focal deficits. -SKIN: Bilateral fungal rash in the groin, other rash with some excoriation in both buttocks and lower legs associated with itching. Improving no petechiae. - Labs CBC & Chem 7: 03/14/21 21:39 03/15/21 17:20 Assessment and Plan Assessment: - Severe coronary protein malnutrition, with resultant edema improved with Lasix - Anasarca, 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 Improving - alcohol abuse associated with alcohol withdrawal - Mild microscopic hematuria, cystoscopy recommended as an outpatient - Elevated troponin. Unrelated to heart disease. 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 Patient refused rehab and he wants to go home - mild elements of cellulitis of the buttocks, improving - History of asthma, not an active issue - Hypertension - Mild pancytopenia, mostly secondary to alcohol affect . - Tachycardia, most likely atrial tachycardia rather than A. fib no need for anticoagulation per hydrogen operator - Mildly elevated liver enzymes, mostly secondary to alcohol affect, with ASD more than ALT. Improving - Malnutrition. Severe coronary protein malnutrition - Chronically bedbound - Deconditioning and bad self hygiene - Bedridden with significantly reduced functional capacity. Plan: This is a pleasant 80 years old male who presents with anasarca, alcohol abuse Patient agrees with PEG tube placement today, daughter Rubia is aware and she agrees. We consulted surgery team. Keep patient nothing by mouth after midnight We will check CT of the chest, abdomen and pelvis with oral contrast, pending for now Lasix switched to oral . Continue with Fluid restriction 1200 mL per day Continue with Protonix and follow up with GI as an outpatient Cystoscopy as an outpatient for microscopic hematuria. Recommend subacute rehab upon discharge. Patient declines. Ordered home health care however patient now is going with his daughter to [place] when his discharge from this facility Continue with Augmentin Labs and medication were reviewed.. Continue same treatment. Continue with symptomatic treatment. Resume home medication. Monitor lytes and vitals. DVT and GI prophylaxis. Further recommendations depends on the clinical course of the patient DVT prophylaxis: Subcutaneous heparin GI Prophylaxis: Pepcid PT/OT: OSIEL, patient declines. He wants to go home Prognosis is guarded
[2021-03-16] MEDS: IOPAMIDOL CONTRAST (ORAL USE) VIAL PO PRN ×2 (15:26→16:11)
[2021-03-16] MEDS: METOPROLOL TARTRATE 25 MG TAB PO SCH ×2 (15:32→20:10)
[2021-03-16] MEDS: FUROSEMIDE 20 MG TAB PO SCH ×2 (15:32→20:10)
[2021-03-16] MEDS: MEGESTROL 400 MG/10 ML CUP PO SCH (15:32)
--- NOTE | 2021-03-16 18:20 | P.GSCN ---
History of Present Illness Consult date: 03/16/21 Reason for Consult: PEG tube placement History of present illness: The patient's a 80-year-old man who was admitted due to some generalized edema, weight loss with poor oral intake. He was evaluated while in hospital and passed his barium swallow and speech evaluation but still eat. He says he doesn't have an appetite. He was started on Megace and won't eat. He did have an EGD performed showing Dooley's esophagus or erosive esophagitis. The patient has been slowly declining and plans are for him to move with his daughter, Aaron. The patient is a poor historian. It appears he does not remember our discussion several minutes earlier Review of Systems All systems: negative Past Medical History Past Medical History: Asthma, Hypertension, Pneumonia Additional Past Medical History / Comment(s): falls, ETOH-pt reports drinking 6oz to 1 pint of Vodka/day. History of Any Multi-Drug Resistant Organisms: None Reported Past Surgical History: Hernia Repair, Orthopedic Surgery Additional Past Surgical History / Comment(s): left rotator cuff repair Smoking Status: Never smoker - Past Family History Father Additional Family Medical History / Comment(s): none Medications and Allergies Home Medications Medication Instructions Recorded Confirmed Type diphenhydrAMINE [Benadryl] 25 mg PO DAILY PRN 03/07/21 03/07/21 History Albuterol Inhaler [Ventolin Hfa 1 puff INHALATION QID PRN #1 inh 03/13/21 Rx Inhaler] Amoxic-Pot Clav 875-125Mg 1 each PO Q12H 5 Days #10 tab 03/13/21 Rx [Augmentin 875-125] Furosemide [Lasix] 20 mg PO BID #60 tab 03/13/21 Rx Metoprolol Tartrate [Lopressor] 50 mg PO BID #120 tab 03/13/21 Rx Nystatin 100,000Unit/gm Cream 1 applic TOPICAL BID 3 Days #1 tub 03/13/21 Rx [Mycostatin Cream] Pantoprazole [Protonix] 40 mg PO AC-BID #60 tab 03/13/21 Rx Tamsulosin [Flomax] 0.4 mg PO PC-BRKFST 30 Days #30 tab 03/13/21 Rx Thiamine [Vitamin B-1] 100 mg PO BID-W/MEALS #60 tab 09/13/21 Rx Allergies Allergy/AdvReac Type Severity Reaction Status Date / Time No Known Allergies Allergy Verified 03/07/21 19:24 Surgical - Exam Osteopathic Statement: *. No significant issues noted on an osteopathic structural exam other than those noted in the History and Physical/Consult. Vital Signs Temp Pulse Resp BP Pulse Ox 99.0 F 84 86 H 157/98 96 03/07/21 17:17 03/07/21 17:17 03/07/21 17:17 03/07/21 17:17 03/07/21 17:17 - General no distress - Eyes normal ocular movement - Respiratory normal respiratory effort, clear to auscultation right: dullness, wheezing, rales, absent breath sounds - Cardiovascular Rhythm: regular - Abdomen Abdomen: soft, no organomegaly, no surgical scars, distended (Slightly distended) Results - Labs 03/14/21 21:39 03/15/21 17:20 - Imaging CT scan - abdomen: image reviewed (CT reports are not available this time. Does appear to have a fair amount of ascites in the abdomen. There are bullous changes in the lungs along with bilateral pleural effusions.) Assessment and Plan (1) Coagulopathy Current Visit: Yes Status: Acute Code(s): D68.9 - COAGULATION DEFECT, UNSPECIFIED SNOMED Code(s): 75385275 (2) Ascites Current Visit: Yes Status: Acute Code(s): R18.8 - OTHER ASCITES SNOMED Code(s): 599058664 (3) Failure to thrive in adult Current Visit: Yes Status: Acute Code(s): R62.7 - ADULT FAILURE TO THRIVE SNOMED Code(s): 200494593 Plan: I spoke with the patient and also his daughter via phone. We'll give him vitamin K to improve the coagulopathy. Recheck coagulation studies in the a.m. Hold off PEG tube until risk of bleeding is low. He will need to see gastroenterology for the presumed cirrhosis. Further recommendations to follow.
[2021-03-16] MEDS ORDERED: PHYTONADIONE 10 MG in SODIUM CHLORIDE 0.9% 50 ML IVPB STA (18:21)
--- NOTE | 2021-03-16 22:35 | CT ---
EXAMINATION TYPE: CT ChestAbdPelvis wo con DATE OF EXAM: 03/16/2021 COMPARISON: None HISTORY: loss of weight, malnutrition CT DLP: 681.2 mGycm Automated exposure control for dose reduction was used. Images obtained from the thoracic inlet to the floor the pelvis with no contrast. There is oral contr ast. There are moderate bilateral pleural effusions. There is moderate bullous pulmonary emphysema. There is no mediastinal adenopathy. There are no hilar masses. Heart size is fairly normal. There is no per icardial effusion. There is fatty infiltration of the liver. Spleen is intact. There is moderate abdominal ascites. Ther e is no evidence of pancreatic mass. The stomach is intact. The bile ducts are not dilated. There is no adrenal mass. Kidneys have normal size. There is no hydronephrosis. There are left-sided renal cortical cysts that measure up to 3 cm. There is 1 cyst anteriorly measuring 1 cm which contain s calcium. There is 1 mm calculus lower pole left kidney. There is no hydronephrosis. Ureters are not dilated. There is no retroperitoneal adenopathy. Bladder distends smoothly. There is no evidence of a pelvic mass. There is no evidence of a bowel obstruction. There is oral contrast opacification of the small bowel which is not dilated. There is oral contrast extending to the rectum. The terminal ileum appears norm al. Appendix is not definitely seen. There is no sign of thickened appendix. There is no evidence of bowel obstruction. The thoracic and lumbar spine appear intact. There is no compression fracture. Sternum is intact. Bon y pelvis is intact. The hip joints are intact. IMPRESSION: Bullous pulmonary emphysema. Bilateral moderate pleural effusions and moderate abdominal ascites. Fat ty infiltration of the liver. Subcutaneous edema around the abdomen could relate to some anasarca.
[2021-03-17] MEDS: NYSTATIN 100,000UNIT/GM CREAM 30 GM TUBE TOPICAL SCH ×2 (00:21→13:01)
[2021-03-17] MEDS: THIAMINE 100 MG TAB PO SCH ×2 (06:04→16:23)
[2021-03-17] MEDS: PANTOPRAZOLE 40 MG TABLET PO SCH ×2 (06:04→17:54)
[2021-03-17] MEDS: AMOXIC-POT CLAV 875-125MG 1 EACH TAB PO SCH ×2 (06:04→17:54)
[2021-03-17] MEDS: HEPARIN SODIUM,PORCINE/PF 5,000 UNIT/0.5 ML SYRINGE SQ SCH ×2 (09:46→22:34)
[2021-03-17 10:02] LABS: ALT 21 U/L (4-49); AST 59 U/L (17-59); African American GFR (CKD) >90 (>60 ml/min/1.73 sqM); Alkaline Phosphatase 51 U/L (38-126); Anion Gap 6 mmol/L; Blood Urea Nitrogen 13 mg/dL (9-20); Calcium 7.4 mg/dL (8.4-10.2); Carbon Dioxide 23 mmol/L (22-30); Chloride 109 mmol/L (98-107); Glucose 73 mg/dL (74-99); INR 1.1 (<1.2); Magnesium 1.9 mg/dL (1.6-2.3); Non-African American GFR(CKD) 88 (>60 ml/min/1.73 sqM); Partial Thromboplastin Time 25.7 sec (22.0-30.0); Potassium 3.5 mmol/L (3.5-5.1); Prothrombin Time 11.6 sec (9.0-12.0); Sodium 138 mmol/L (137-145); Total Bilirubin 0.7 mg/dL (0.2-1.3); Total Protein 4.7 g/dL (6.3-8.2)
[2021-03-17 10:17] LABS: Basophils % (A) 1 %; Eosinophils % (A) 1 %; HCT 28.7 % (39.0-53.0); HGB 9.5 gm/dL (13.0-17.5); Lymphocytes # (A) 0.6 k/uL (1.0-4.8); Lymphocytes % (A) 23 %; MCH 35.3 pg (25.0-35.0); MCHC 33.2 g/dL (31.0-37.0); MCV 106.6 fL (80.0-100.0); Macrocytosis Moderate; Mean Platelet Volume 10.1; Monocytes # (A) 0.2 k/uL (0-1.0); Monocytes % (A) 9 %; Neutrophils # (A) 1.6 k/uL (1.3-7.7); Neutrophils % (A) 61 %; Platelet Count 114 k/uL (150-450); RDW 13.6 % (11.5-15.5); WBC 2.6 k/uL (3.8-10.6)
[2021-03-17] MEDS: METOPROLOL TARTRATE 25 MG TAB PO SCH ×2 (12:58→22:33)
[2021-03-17] MEDS: FUROSEMIDE 20 MG TAB PO SCH ×2 (12:58→22:33)
[2021-03-17] MEDS: TAMSULOSIN 0.4 MG CAP.ER.24H PO SCH (12:58)
--- NOTE | 2021-03-17 13:28 | P.PN ---
Progress Note - Text Progress Note Date: 03/17/21 PT/INR improved after Vitamin K. Will proceed with PEG tube placement
[2021-03-17] MEDS ORDERED: LIDOCAINE 1% INJ 10MG/ML (20 ML MDV) ONE (15:31)
[2021-03-17] MEDS ORDERED: PROPOFOL 10 MG/ML 20 ML VIAL IV ONE (15:31)
[2021-03-17] MEDS ORDERED: IV FLUID CONTINUATION 1,000 ML IV ONE (15:54)
--- NOTE | 2021-03-17 15:55 | P.PCN ---
Date of Procedure: 03/17/21 Preoperative Diagnosis: Dysphagia, failure to thrive Postoperative Diagnosis: Dysphagia, failure to thrive Procedure(s) Performed: PEG tube placement Anesthesia: MAC Surgeon: Carmen Britt Estimated Blood Loss (ml): 2 Pathology: none sent Condition: stable Disposition: PACU Indications for Procedure: Patient has failure to thrive with weight loss. Although he is passed swallow eval and upper GI barium study subjectively has dysphagia so PEG tube was requested Description of Procedure: Patient's taken to the endoscopy suite where he is given IV sedation. The scope was then passed per mouth into the stomach. Esophagus doesn't distend quite normally, he may have some tertiary contractions. The stomach is insufflated, transilluminated and palpated. A site is chosen for PEG tube placement. The abdominal wall is prepped and draped in the usual sterile manner. Local anesthetic was instilled into the skin and abdominal wall. A skin cuca was made an introducer needle was passed. A guidewire was laced through the introducer and grasped with a polypectomy snare. The endoscope and guidewire were then removed per mouth. A Ponsky pull PEG tube was attached to the guidewire and this was placed on manual traction and brought out through the abdominal wall. It was trimmed to size and attached to the appropriate adapters. The endoscope was reinserted and the bowel was noted to seat against the gastric wall with no bleeding. He tolerated the procedure without difficulty and was taken recovery room in satisfactory condition. Tube feedings may start and 24 hours
[2021-03-17] MEDS: MEGESTROL 400 MG/10 ML CUP PO SCH (16:23)
[2021-03-17] MEDS: MULTIVITAMINS, THERA LIQUID 237 ML BOTTLE PO SCH (16:23)
--- NOTE | 2021-03-17 17:30 | P.PN ---
Subjective Progress Note Date: 03/17/21 Principal diagnosis: Severe coronary protein malnutrition Anasarca, suspected secondary to alcoholic liver disease/cirrhosis Deconditioning and generalized weakness and chronic gait difficulty 80 years old male with past medical history of asthma Patient was transferred from [facility] for bilateral lower extremity swelling and edema and scrotal and penile swelling as well. Patient states that he presents because of diarrhea and generalized swelling including the scrotum which has been going on for the last 2 months but he could not specify what prompted him to come to emergency room today. Patient is bedbound for about a year, nonweightbearing, he told me last time he walked about 6 months ago. Also he does not follow up with his [facility] doctor and last Several Months Ago. that's Why Mainly He Eats Juices and liquids.. He lost weight 190 down to 150. He denies smoking or illicit drugs, he drinks 4 cups of liquor every day H cup about 4 ounces He denies depression or suicidal thoughts. Objective - Vital Signs Vital signs: Vital Signs Temp 98.3 F 03/17/21 08:30 Pulse 57 L 03/17/21 08:30 Resp 18 03/17/21 09:22 BP 186/93 03/17/21 08:30 Pulse Ox 95 03/17/21 08:30 Intake & Output 03/16/21 03/17/21 03/17/21 18:59 06:59 18:59 Intake Total 60 0 Output Total 440 Balance 60 -440 0 Weight 75.5 kg 71 kg Intake: Intake, IV Titration 60 Amount Sodium Chloride 0.9% 500 60 ml 500 ml @ 0 mls/hr IV . [facility] Rx#: [id number] Oral 0 Output: Urine 440 Other: Voiding Method Urinal Urinal # Voids 1 # Bowel Movements 1 - Exam -GENERAL: The patient is alert and oriented x3, not in any acute distress. Cachectic HEENT: Pupils are round and equally reacting to light. EOMI. No scleral icterus. No conjunctival pallor. Normocephalic, atraumatic. No pharyngeal erythema. No thyromegaly. CARDIOVASCULAR: S1 and S2 present. No murmurs, rubs, or gallops. PULMONARY: Chest is clear to auscultation, no wheezing or crackles. -ABDOMEN: Soft, nontender, nondistended, normoactive bowel sounds. No palpable organomegaly. Scrotal swelling, improving MUSCULOSKELETAL: No joint swelling or deformity. -EXTREMITIES: No cyanosis, clubbing, or bilateral pitting leg edema NEUROLOGICAL: Gross neurological examination did not reveal any focal deficits. -SKIN: Bilateral fungal rash in the groin, other rash with some excoriation in both buttocks and lower legs associated with itching. Improving no petechiae. - Labs CBC & Chem 7: 03/17/21 08:13 03/17/21 08:13 Labs: Abnormal Lab Results - Last 24 Hours (Table) 03/17/21 03/17/21 Range/Units 08:13 08:13 WBC 2.6 L (3.8-10.6) k/uL RBC 2.70 L (4.30-5.90) m/uL Hgb 9.5 L (13.0-17.5) gm/dL Hct 28.7 L (39.0-53.0) % MCV 106.6 H (80.0-100.0) fL MCH 35.3 H (25.0-35.0) pg Plt Count 114 L (150-450) k/uL Lymphocytes # 0.6 L (1.0-4.8) k/uL Chloride 109 H (98-107) mmol/L Glucose 73 L (74-99) mg/dL Calcium 7.4 L (8.4-10.2) mg/dL Total Protein 4.7 L (6.3-8.2) g/dL Albumin 2.0 L (3.5-5.0) g/dL Assessment and Plan Assessment: - Severe coronary protein malnutrition, with resultant edema improved with Lasix - Anasarca, 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 Improving - alcohol abuse associated with alcohol withdrawal - Mild microscopic hematuria, cystoscopy recommended as an outpatient - Elevated troponin. Unrelated to heart disease. 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 Patient refused rehab and he wants to go home - mild elements of cellulitis of the buttocks, improving - History of asthma, not an active issue - Hypertension - Mild pancytopenia, mostly secondary to alcohol affect . - Tachycardia, most likely atrial tachycardia rather than A. fib no need for anticoagulation per trust and estates attorney - Mildly elevated liver enzymes, mostly secondary to alcohol affect, with ASD more than ALT. Improving - Malnutrition. Severe coronary protein malnutrition - Chronically bedbound - Deconditioning and bad self hygiene - Bedridden with significantly reduced functional capacity. Plan: This is a pleasant 80 years old male who presents with anasarca, alcohol abuse Patient agrees with PEG tube placement today, daughter Rubia is aware and she agrees. We consulted surgery team. Keep patient nothing by mouth after midnight We will check CT of the chest, abdomen and pelvis with oral contrast, pending for now Lasix switched to oral . Continue with Fluid restriction 1200 mL per day Continue with Protonix and follow up with GI as an outpatient Cystoscopy as an outpatient for microscopic hematuria. Recommend subacute rehab upon discharge. Patient declines. Ordered home health care however patient now is going with his daughter to [place] when his discharge from this facility Continue with Augmentin Labs and medication were reviewed.. Continue same treatment. Continue with symptomatic treatment. Resume home medication. Monitor lytes and vitals. DVT and GI prophylaxis. Further recommendations depends on the clinical course of the patient DVT prophylaxis: Subcutaneous heparin GI Prophylaxis: Pepcid PT/OT: OSIEL, patient declines. He wants to go home
[2021-03-17] MEDS ORDERED: HYDROmorphone 0.5 MG/0.5 ML SYRINGE IVP PRN (19:31)
[2021-03-17 21:54] LABS: HCT 28.3 % (39.0-53.0); HGB 9.4 gm/dL (13.0-17.5); MCH 35.8 pg (25.0-35.0); MCV 108.5 fL (80.0-100.0); Macrocytosis Moderate; Platelet Count 100 k/uL (150-450); RBC 2.61 m/uL (4.30-5.90); WBC 2.5 k/uL (3.8-10.6)
[2021-03-18] MEDS: NYSTATIN 100,000UNIT/GM CREAM 30 GM TUBE TOPICAL SCH ×2 (01:38→08:21)
[2021-03-18 02:40] LABS: HCT 26.9 % (39.0-53.0); HGB 8.9 gm/dL (13.0-17.5); MCH 35.2 pg (25.0-35.0); MCHC 33.3 g/dL (31.0-37.0); MCV 105.8 fL (80.0-100.0); Macrocytosis Moderate; Mean Platelet Volume 12.1; Platelet Count 114 k/uL (150-450); RBC 2.54 m/uL (4.30-5.90); RDW 13.6 % (11.5-15.5); WBC 3.4 k/uL (3.8-10.6)
[2021-03-18 06:06] LABS: INR 1.1 (<1.2); Prothrombin Time 11.6 sec (9.0-12.0)
[2021-03-18] MEDS: AMOXIC-POT CLAV 875-125MG 1 EACH TAB PO SCH ×2 (06:17→16:24)
[2021-03-18] MEDS: PANTOPRAZOLE 40 MG TABLET PO SCH ×2 (06:18→16:24)
[2021-03-18] MEDS: THIAMINE 100 MG TAB PO SCH ×2 (06:18→16:24)
[2021-03-18 06:39] LABS: African American GFR (CKD) >90 (>60 ml/min/1.73 sqM); Anion Gap 11 mmol/L; Blood Urea Nitrogen 13 mg/dL (9-20); Calcium 7.6 mg/dL (8.4-10.2); Carbon Dioxide 20 mmol/L (22-30); Chloride 109 mmol/L (98-107); Glucose 64 mg/dL (74-99); Non-African American GFR(CKD) 84 (>60 ml/min/1.73 sqM); Potassium 3.7 mmol/L (3.5-5.1); Sodium 140 mmol/L (137-145)
[2021-03-18] MEDS: MEGESTROL 400 MG/10 ML CUP PO SCH (08:21)
[2021-03-18] MEDS: METOPROLOL TARTRATE 25 MG TAB PO SCH ×2 (08:21→20:44)
[2021-03-18] MEDS: HEPARIN SODIUM,PORCINE/PF 5,000 UNIT/0.5 ML SYRINGE SQ SCH ×2 (08:21→20:44)
[2021-03-18] MEDS: TAMSULOSIN 0.4 MG CAP.ER.24H PO SCH (08:21)
[2021-03-18] MEDS: FUROSEMIDE 20 MG TAB PO SCH ×2 (08:21→20:44)
[2021-03-18] MEDS: MULTIVITAMINS, THERA 1 EACH TAB PO SCH (08:40)
[2021-03-18 10:20] LABS: Basophils % (A) 1 %; Eosinophils % (A) 0 %; HCT 25.7 % (39.0-53.0); HGB 8.3 gm/dL (13.0-17.5); Lymphocytes # (A) 0.5 k/uL (1.0-4.8); Lymphocytes % (A) 15 %; MCH 34.7 pg (25.0-35.0); MCHC 32.2 g/dL (31.0-37.0); Macrocytosis Moderate; Mean Platelet Volume 10.4; Monocytes # (A) 0.3 k/uL (0-1.0); Monocytes % (A) 8 %; Neutrophils # (A) 2.8 k/uL (1.3-7.7); Neutrophils % (A) 75 %; Platelet Count 117 k/uL (150-450); RBC 2.38 m/uL (4.30-5.90); RDW 12.9 % (11.5-15.5); WBC 3.8 k/uL (3.8-10.6)
--- NOTE | 2021-03-18 10:30 | P.PN ---
Subjective Progress Note Date: 03/18/21 Principal diagnosis: S/P PEG tube placement The patient is S/P PEG tube placement. He had some bleeding from the insertion site last night. Dressing was reinforced and then a pressure dressing was placed. He has had no further bleeding this morning mild incisional discomfort Objective - Vital Signs Vital signs: Vital Signs Temp 98.3 F 03/18/21 08:00 Pulse 103 H 03/18/21 08:00 Resp 18 03/18/21 08:00 BP 176/95 03/18/21 08:00 Pulse Ox 92 L 03/18/21 08:00 Intake & Output 03/17/21 03/18/21 03/18/21 18:59 06:59 18:59 Intake Total 100 0 Output Total 500 475 300 Balance -400 -475 -300 Weight 71 kg 71.5 kg Intake: IV 100 Oral 0 0 Output: Urine 200 475 Stool 300 300 Other: Voiding Method Urinal Urinal Urinal - Constitutional General appearance: Present: cooperative, no acute distress - Gastrointestinal Gastrointestinal Comment(s): Dressing is intact, clean and dry General gastrointestinal: Present: normal bowel sounds, soft - Labs CBC & Chem 7: 03/18/21 02:25 03/18/21 05:32 Labs: Abnormal Lab Results - Last 24 Hours (Table) 03/17/21 03/18/21 03/18/21 Range/Units 21:29 02:25 05:32 WBC 2.5 L 3.4 L (3.8-10.6) k/uL RBC 2.61 L 2.54 L (4.30-5.90) m/uL Hgb 9.4 L 8.9 L (13.0-17.5) gm/dL Hct 28.3 L 26.9 L (39.0-53.0) % MCV 108.5 H 105.8 H (80.0-100.0) fL MCH 35.8 H 35.2 H (25.0-35.0) pg Plt Count 100 L 114 L (150-450) k/uL Chloride 109 H (98-107) mmol/L Carbon Dioxide 20 L (22-30) mmol/L Glucose 64 L (74-99) mg/dL Calcium 7.6 L (8.4-10.2) mg/dL Assessment and Plan (1) Coagulopathy Current Visit: Yes Status: Acute Code(s): D68.9 - COAGULATION DEFECT, UNSPECIFIED SNOMED Code(s): 37349076 (2) Ascites Current Visit: Yes Status: Acute Code(s): R18.8 - OTHER ASCITES SNOMED Cod e(s): 207880659 (3) Failure to thrive in adult Current Visit: Yes Status: Acute Code(s): R62.7 - ADULT FAILURE TO THRIVE SNOMED Code(s): 942467753 Plan: Tube feeding will be started this afternoon. Hemoglobin was rechecked and there was no sign of any significant bleeding. I rechecked his coag studies and those were also within normal limits. Questions were encouraged and answered
--- NOTE | 2021-03-18 15:44 | P.PN ---
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 Patient states that he presents because of diarrhea and generalized swelling including the scrotum which has been going on for the last 2 months but he could not specify what prompted him to come to emergency room today. Patient is bedbound for about a year, nonweightbearing, he told me last time he walked about 6 months ago. Also he does not follow up with his [facility] doctor and last Several Months Ago. that's Why Mainly He Eats Juices and liquids.. He lost weight 190 down to 150. He denies smoking or illicit drugs, he drinks 4 cups of liquor every day H cup about 4 ounces He denies depression or suicidal thoughts. 03/18/2021 Patient is seen and evaluated resting comfortably in bed; patient is status post PEG tube placement, POD #1; denies any complaint of pain Vital signs are stable with temperature of 98.3, pulse 13, respiration 18 and blood pressure 176/95 Surgery on board; no further concerns for incision site and patient is re commended to start tube feeding later today Objective - Vital Signs Vital signs: Vital Signs Temp 98.3 F 03/18/21 08:00 Pulse 103 H 03/18/21 08:00 Resp 18 03/18/21 08:00 BP 176/95 03/18/21 08:00 Pulse Ox 92 L 03/18/21 08:00 Intake & Output 03/17/21 03/18/21 03/18/21 18:59 06:59 18:59 Intake Total 100 0 Output Total 500 475 300 Balance -400 -475 -300 Weight 71 kg 71.5 kg Intake: IV 100 Oral 0 0 Output: Urine 200 475 Stool 300 300 Other: Voiding Method Urinal Urinal Urinal - Exam -GENERAL: The patient is alert and oriented x3, not in any acute distress. Cachectic HEENT: Pupils are round and equally reacting to light. EOMI. No scleral icterus. No conjunctival pallor. Normocephalic, atraumatic. No pharyngeal erythema. No thyromegaly. CARDIOVASCULAR: S1 and S2 present. No murmurs, rubs, or gallops. PULMONARY: Chest is clear to auscultation, no wheezing or crackles. -ABDOMEN: Soft, nontender, nondistended, normoactive bowel sounds. No palpable organomegaly. Scrotal swelling, improving MUSCULOSKELETAL: No joint swelling or deformity. -EXTREMITIES: No cyanosis, clubbing, or bilateral pitting leg edema NEUROLOGICAL: Gross neurological examination did not reveal any focal deficits. -SKIN: Bilateral fungal rash in the groin, other rash with some excoriation in both buttocks and lower legs associated with itching. Improving no petechiae. - Labs CBC & Chem 7: 03/18/21 09:12 03/18/21 05:32 Labs: Abnormal Lab Results - Last 24 Hours (Table) 03/17/21 03/17/21 03/17/21 Range/Units 08:13 08:13 21:29 WBC 2.6 L 2.5 L (3.8-10.6) k/uL RBC 2.70 L 2.61 L (4.30-5.90) m/uL Hgb 9.5 L 9.4 L (13.0-17.5) gm/dL Hct 28.7 L 28.3 L (39.0-53.0) % MCV 106.6 H 108.5 H (80.0-100.0) fL MCH 35.3 H 35.8 H (25.0-35.0) pg Plt Count 114 L 100 L (150-450) k/uL Lymphocytes # 0.6 L (1.0-4.8) k/uL Chloride 109 H (98-107) mmol/L Carbon Dioxide (22-30) mmol/L Glucose 73 L (74-99) mg/dL Calcium 7.4 L (8.4-10.2) mg/dL Total Protein 4.7 L (6.3-8.2) g/dL Albumin 2.0 L (3.5-5.0) g/dL 03/18/21 03/18/21 Range/Units 02:25 05:32 WBC 3.4 L (3.8-10.6) k/uL RBC 2.54 L (4.30-5.90) m/uL Hgb 8.9 L (13.0-17.5) gm/dL Hct 26.9 L (39.0-53.0) % MCV 105.8 H (80.0-100.0) fL MCH 35.2 H (25.0-35.0) pg Plt Count 114 L (150-450) k/uL Lymphocytes # (1.0-4.8) k/uL Chloride 109 H (98-107) mmol/L Carbon Dioxide 20 L (22-30) mmol/L Glucose 64 L (74-99) mg/dL Calcium 7.6 L (8.4-10.2) mg/dL Total Protein (6.3-8.2) g/dL Albumin (3.5-5.0) g/dL Assessment and Plan Assessment: - Severe coronary protein malnutrition, with resultant edema improved with Lasix - Anasarca, suspected secondary to alcoholic liver disease/cirrhosis , nutriti onal. Improving - alcohol abuse associated with alcohol withdrawal - Mild microscopic hematuria, cystoscopy recommended as an outpatient - Elevated troponin. Unrelated to heart disease. 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 Patient refused rehab and he wants to go home - mild elements of cellulitis of the buttocks, improving - History of asthma, not an active issue - Hypertension - Mild pancytopenia, mostly secondary to alcohol affect . - Tachycardia, most likely atrial tachycardia rather than A. fib no need for anticoagulation per vehicle cost engineer - Mildly elevated liver enzymes, mostly secondary to alcohol affect, with ASD more than ALT. Improving - Malnutrition. Severe coronary protein malnutrition - Chronically bedbound - Deconditioning and bad self hygiene - Bedridden with significantly reduced functional capacity. Plan: This is a pleasant 80 years old male who presents with anasarca, alcohol abuse Patient agrees with PEG tube placement today, daughter Rubia is aware and she agrees. We consulted surgery team. Keep patient nothing by mouth after midnight We will check CT of the chest, abdomen and pelvis with oral contrast, pending for now Lasix switched to oral . Continue with Fluid restriction 1200 mL per day Continue with Protonix and follow up with GI as an outpatient Cystoscopy as an outpatient for microscopic hematuria. Recommend subacute rehab upon discharge. Patient declines. Ordered home health care however patient now is going with his daughter to [place] when his di scharge from this facility Continue with Augmentin Labs and medication were reviewed.. Continue same treatment. Continue with symptomatic treatment. Resume home medication. Monitor lytes and vitals. DVT and GI prophylaxis. Further recommendations depends on the clinical course of the patient DVT prophylaxis: Subcutaneous heparin GI Prophylaxis: Pepcid PT/OT: OSIEL, patient declines. He wants to go home
[2021-03-18] MEDS ORDERED: SIMETHICONE 40 MG/0.6 ML DROPS 2,000 MG/30 ML BOTTLE PO PRN (22:00)
[2021-03-18] MEDS: ALBUTEROL NEBULIZED 2.5 MG/3 ML INHALATION PRN (22:19)
[2021-03-19] MEDS: NYSTATIN 100,000UNIT/GM CREAM 30 GM TUBE TOPICAL SCH ×3 (00:06→19:38)
[2021-03-19] MEDS: AMOXIC-POT CLAV 875-125MG 1 EACH TAB PO SCH ×2 (06:24→17:04)
[2021-03-19] MEDS: PANTOPRAZOLE 40 MG TABLET PO SCH ×2 (06:24→14:42)
[2021-03-19] MEDS: THIAMINE 100 MG TAB PO SCH ×2 (06:24→14:42)
[2021-03-19 06:42] LABS: Calcium 7.7 mg/dL (8.4-10.2); Potassium 3.6 mmol/L (3.5-5.1)
[2021-03-19 07:28] LABS: Basophils % (A) 1 %; Eosinophils % (A) 1 %; HCT 25.5 % (39.0-53.0); HGB 8.7 gm/dL (13.0-17.5); Lymphocytes # (A) 0.5 k/uL (1.0-4.8); Lymphocytes % (A) 14 %; MCH 35.4 pg (25.0-35.0); MCHC 34.2 g/dL (31.0-37.0); MCV 103.6 fL (80.0-100.0); Macrocytosis Slight; Mean Platelet Volume 10.8; Monocytes # (A) 0.3 k/uL (0-1.0); Monocytes % (A) 8 %; Neutrophils # (A) 2.8 k/uL (1.3-7.7); Neutrophils % (A) 75 %; Platelet Count 150 k/uL (150-450); RBC 2.47 m/uL (4.30-5.90); RDW 13.6 % (11.5-15.5); WBC 3.7 k/uL (3.8-10.6)
[2021-03-19] MEDS: MEGESTROL 400 MG/10 ML CUP PO SCH (07:29)
[2021-03-19] MEDS: METOPROLOL TARTRATE 25 MG TAB PO SCH ×2 (08:07→19:38)
[2021-03-19] MEDS: TAMSULOSIN 0.4 MG CAP.ER.24H PO SCH (08:07)
[2021-03-19] MEDS: MULTIVITAMINS, THERA 1 EACH TAB PO SCH (08:07)
[2021-03-19] MEDS: FUROSEMIDE 20 MG TAB PO SCH ×2 (08:07→19:38)
[2021-03-19] MEDS: HEPARIN SODIUM,PORCINE/PF 5,000 UNIT/0.5 ML SYRINGE SQ SCH ×2 (08:08→19:38)
[2021-03-19] MEDS: ALBUTEROL NEBULIZED 2.5 MG/3 ML INHALATION PRN ×3 (08:44→15:26)
--- NOTE | 2021-03-19 12:03 | P.PN ---
Progress Note - Text Progress Note Date: 03/19/21 Patient denies any pain. His had no further bleeding. Tube feedings have been started. Abdomen is soft, dressing is intact clean and dry. No ecchymosis around the PEG tube insertion site We'll follow up as needed
[2021-03-19] MEDS ORDERED: BENZONATATE 100 MG CAP PO PRN (13:56)
[2021-03-19] MEDS: guaiFENesin SYRUP 100MG/5ML 200 MG/10 ML CUP PO PRN (14:42)
--- NOTE | 2021-03-19 15:29 | XR ---
EXAMINATION TYPE: XR abdomen 1V DATE OF EXAM: 03/19/2021 COMPARISON: NONE HISTORY: Short of breath TECHNIQUE: 2 views FINDINGS: There is no sign of intestinal obstruction or pneumoperitoneum. There is gastrostomy tube n oted over the stomach. There is no evidence of a mass. Fecal pattern is normal. Lung bases appear nyla ar. IMPRESSION: Nonacute abdomen.
--- NOTE | 2021-03-19 15:32 | XR ---
EXAMINATION TYPE: XR chest 2V DATE OF EXAM: 03/19/2021 COMPARISON: 03/11/2021 HISTORY: Short of breath TECHNIQUE: 2 views FINDINGS: There is some blunting of the costophrenic angles posteriorly. There is small amount of flu id in the major fissures. Heart size is normal. There is no gross heart failure. There are chest lead s. IMPRESSION: There are small pleural effusions increased compared to last exam. No obvious heart failu re. Pneumonia not excluded.
--- NOTE | 2021-03-19 16:10 | P.PN ---
Subjective Progress Note Date: 03/19/21 Principal diagnosis: Severe coronary protein malnutrition Anasarca, suspected secondary to alcoholic liver disease/cirrhosis Deconditioning and generalized weakness and chronic gait difficulty 80 years old male with past medical history of asthma Patient was transferred from [facility] for bilateral lower extremity swelling and edema and scrotal and penile swelling as well. Patient states that he presents because of diarrhea and generalized swelling including the scrotum which has been going on for the last 2 months but he could not specify what prompted him to come to emergency room today. Patient is bedbound for about a year, nonweightbearing, he told me last time he walked about 6 months ago. Also he does not follow up with his [facility] doctor and last Several Months Ago. that's Why Mainly He Eats Juices and liquids.. He lost weight 190 down to 150. He denies smoking or illicit drugs, he drinks 4 cups of liquor every day H cup about 4 ounces He denies depression or suicidal thoughts. 03/18/2021 Patient is seen and evaluated resting comfortably in bed; patient is status post PEG tube placement, POD #1; denies any complaint of pain Vital signs are stable with temperature of 98.3, pulse 13, respiration 18 and blood pressure 176/95 Surgery on board; no further concerns for incision site and patient is re commended to start tube feeding later today 03/19/2021 Patient is seen and evaluated somewhat curled up in bedside; reports cough which is productive of some yellowish; complain of cough is new; patient discussed with nursing staff and concerned about some abdominal distention; patient denies any pain Vital signs are reviewed which revealed a temperature of 97.8; upon auscultation patient does have some scattered wheezes; patient is saturating 94% on room air; acute feeding was started without any significant residual We will order stat abdominal and chest x-ray to rule out any ileus or bowel obstruction and possible aspiration Objective - Vital Signs Vital signs: Vital Signs Temp 98.1 F 03/19/21 08:00 Pulse 88 03/19/21 08:56 Resp 22 03/19/21 08:00 BP 128/65 03/19/21 08:00 Pulse Ox 93 L 03/19/21 08:00 Intake & Output 03/18/21 03/19/21 03/19/21 18:59 06:59 18:59 Intake Total 0 0 Output Total 600 150 300 Balance -600 -150 -300 Weight 74 kg Intake: Oral 0 0 Output: Urine 150 Stool 600 300 Other: Voiding Method Urinal Urinal Urinal # Bowel Movements 1 - Exam -GENERAL: The patient is alert and oriented x3, not in any acute distress. Cachectic HEENT: Pupils are round and equally reacting to light. EOMI. No scleral icterus. No conjunctival pallor. Normocephalic, atraumatic. No pharyngeal erythema. No thyromegaly. CARDIOVASCULAR: S1 and S2 present. No murmurs, rubs, or gallops. PULMONARY: Chest is clear to auscultation, no wheezing or crackles. -ABDOMEN: Soft, nontender, nondistended, normoactive bowel sounds. No palpable organomegaly. Scrotal swelling, improving MUSCULOSKELETAL: No joint swelling or deformity. -EXTREMITIES: No cyanosis, clubbing, or bilateral pitting leg edema NEUROLOGICAL: Gross neurological examination did not reveal any focal deficits. -SKIN: Bilateral fungal rash in the groin, other rash with some excoriation in both buttocks and lower legs associated with itching. Improving no petechiae. - Labs CBC & Chem 7: 03/19/21 05:31 03/19/21 05:31 Labs: Abnormal Lab Results - Last 24 Hours (Table) 03/18/21 03/19/21 03/19/21 Range/Units 09:12 05:31 05:31 WBC 3.7 L (3.8-10.6) k/uL RBC 2.47 L (4.30-5.90) m/uL Hgb 8.7 L (13.0-17.5) gm/dL Hct 25.5 L (39.0-53.0) % MCV 103.6 H (80.0-100.0) fL MCH 35.4 H (25.0-35.0) pg Lymphocytes # 0.5 L 0.5 L (1.0-4.8) k/uL Chloride 108 H (98-107) mmol/L Glucose 126 H (74-99) mg/dL Calcium 7.7 L (8.4-10.2) mg/dL Assessment and Plan Assessment: - Severe coronary protein malnutrition, with resultant edema improved with Lasix - Anasarca, 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 Improving - alcohol abuse associated with alcohol withdrawal - Mild microscopic hematuria, cystoscopy recommended as an outpatient - Elevated troponin. Unrelated to heart disease. 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 Patient refused rehab and he wants to go home - mild elements of cellulitis of the buttocks, improving - History of asthma, not an active issue - Hypertension - Mild pancytopenia, mostly secondary to alcohol affect . - Tachycardia, most likely atrial tachycardia rather than A. fib no need for anticoagulation per manager regulatory - Mildly elevated liver enzymes, mostly secondary to alcohol affect, with ASD more than ALT. Improving - Malnutrition. Severe coronary protein malnutrition - Chronically bedbound - Deconditioning and bad self hygiene - Bedridden with significantly reduced functional capacity. Plan: This is a pleasant 80 years old male who presents with anasarca, alcohol abuse Patient agrees with PEG tube placement today, daughter Rubia is aware and she agrees. We consulted surgery team. Keep patient nothing by mouth after midnight We will check CT of the chest, abdomen and pelvis with oral contrast, pending for now Lasix switched to oral . Continue with Fluid restriction 1200 mL per day Continue with Protonix and follow up with GI as an outpatient Cystoscopy as an outpatient for microscopic hematuria. Recommend subacute rehab upon discharge. Patient declines. Ordered home health care however patient now is going with his daughter to [place] when his discharge from this facility Continue with Augmentin Labs and medication were reviewed.. Continue same treatment. Continue with symptomatic treatment. Resume home medication. Monitor lytes and vitals. DVT and GI prophylaxis. Further recommendations depends on the clinical course of the patient DVT prophylaxis: Subcutaneous heparin GI Prophylaxis: Pepcid PT/OT: OSIEL, patient declines. He wants to go home
[2021-03-20] MEDS: PANTOPRAZOLE 40 MG TABLET PO SCH (06:15)
[2021-03-20] MEDS: THIAMINE 100 MG TAB PO SCH ×2 (06:17→17:04)
[2021-03-20] MEDS: ALBUTEROL NEBULIZED 2.5 MG/3 ML INHALATION PRN ×2 (08:06→20:50)
[2021-03-20] MEDS: MEGESTROL 400 MG/10 ML CUP PO SCH (09:05)
[2021-03-20] MEDS: FUROSEMIDE 20 MG TAB PO SCH ×2 (09:05→20:14)
[2021-03-20] MEDS: MULTIVITAMINS, THERA 1 EACH TAB PO SCH (09:05)
[2021-03-20] MEDS: METOPROLOL TARTRATE 25 MG TAB PO SCH ×2 (09:05→20:14)
[2021-03-20] MEDS: TAMSULOSIN 0.4 MG CAP.ER.24H PO SCH (09:05)
[2021-03-20] MEDS: HEPARIN SODIUM,PORCINE/PF 5,000 UNIT/0.5 ML SYRINGE SQ SCH ×2 (09:05→20:14)
[2021-03-20] MEDS: NYSTATIN 100,000UNIT/GM CREAM 30 GM TUBE TOPICAL SCH ×2 (09:23→20:17)
--- NOTE | 2021-03-20 12:46 | P.PN ---
Subjective Progress Note Date: 03/20/21 Principal diagnosis: Dysphasia 72-year-old male who presented to the emergency department with complaints of dysphasia with difficulty and painful swallowing. Decreased appetite with significant weight loss over the past year. He underwent an EGD on 03/10/2021 showing Dooley's esophagus, linear erosions consistent with LA grade B reflux esophagitis, no evidence of esophageal stricture and a moderate size hiatal hernia. 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 Recommendation the patient is repeat upper endoscopy in 3 years. Patient is denying any abdominal pain, nausea, or vomiting. He continued to have a decreased appetite and would not eat. He did have a barium swallow study which was normal. He did undergo PEG tube placement by Dr. Britt on 03/17/2021. He is tolerating his PEG tube feedings.patient had a CT of the chest, abdomen, and pelviswith findings of bullous pulmonary emphysema. Bilateral moderate pleural effusions and moderate abdominal ascites. Fatty infiltration of the liver. Subcutaneous edema around the abdomen could relate to some anasarca. The patient states he has been drinking for the last 2 years half of a pint to 1 pint a day. Denies any previous history of ascites or paracentesis. Objective - Vital Signs Vital signs: Vital Signs Temp 98.1 F 03/20/21 04:00 Pulse 97 03/20/21 08:19 Resp 20 03/20/21 04:00 BP 126/79 03/20/21 04:00 Pulse Ox 90 L 03/20/21 08:10 Intake & Output 03/19/21 03/20/21 03/20/21 18:59 06:59 18:59 Intake Total 0 918 Output Total 600 200 Balance -600 718 Weight 74.2 kg Intake: Oral 0 120 Tube Feeding 798 Output: Urine 200 Stool 600 Other: Voiding Method Urinal Urinal # Voids 1 # Bowel Movements 1 - Exam General appearance: The patient is alert, oriented, appears in no acute distress. HET: Head is normocephalic and atraumatic. Conjunctiva pink. Sclera anicteric. Neck: Supple without lymphadenopathy. Abdomen: Soft,nontender, PEG tube intact, distended /ascites with bowel sounds. No guarding or rigidity. Extremities: Normal skin color and turgor. No pedal edema Skin: No rashes, no jaundice Neurological: No focal deficits. Alert and oriented 3. - Labs CBC & Chem 7: 03/19/21 05:31 03/19/21 05:31 Assessment and Plan (1) Dysphagia Narrative/Plan: 80-year-old male who was a transfer to our emergency department from outside facility for generalized anasarca and shortness of breath. Gastroenterology was consulted for complaints of dysphagia for the last 2 years duration, patient states he is unable to swallow solids without becoming stuck. Patient denies any nausea or vomiting. States he is only taking in liquids and soft foods. States he has had a weight loss of 40-50 pounds in the last 1 year duration. He has had a modified barium swallow 2 years ago that showed a small sliding hiatal hernia, he underwent barium swallow this admission showing no penetration or aspiration observed. Speech therapy evaluated patient and states they believe he has got swelling due to confusion otherwise they recommend soft diet. Patient states he had some workup done in [facility] 2 years ago and was referred to a canine deputy in [place] and was scheduled to undergo an EGD, however due to covert he canceled his appointment. He states he wants to get his COVID-19 vaccine however is having difficulty getting it. States he does not want any EGD or colonoscopy until he is is vaccinated, and will plan on following up with original canine deputy out of [place]. He does complain of acid reflux, does not take any medications regularly for it. He does not follow-up regular with his PCP. He denies any previous EGD or colonoscopy. patient underwent EGD on 03/10/2021 with findings of long segment Dooley's esophagus, linear erosions proximal to Dooley's esophagus consistent with LA grade B reflux esophagitis, no evidence of esophageal stricture, moderate size hiatal hernia. Current Visit: Yes Status: Acute Code(s): R13.10 - DYSPHAGIA, UNSPECIFIED SNOMED Code(s): 29108771 (2) Ascites Narrative/Plan: abdominal ascites noted on CT of chest abdomen and pelvis. Also states fatty infiltration of liver. Patient likely has component of underlying liver disease related more to alcoholic cirrhosis of the liver. Continue with Lasix 20 mg twice a day, will add Aldactone 50 mg daily. Discussed importance of alcohol abstinence. Current Visit: Yes Status: Acute Code(s): R18.8 - OTHER ASCITES SNOMED Code(s): 211105928 (3) Diarrhea Narrative/Plan: resolved Current Visit: Yes Status: Acute Code(s): R19.7 - DIARRHEA, UNSPECIFIED SNOMED Code(s): 73339516 Plan: 1. Continue symptomatic and supportive care 2. Patient is status post EGD 3. Recommend outpatient colonoscopy 4. Patient instructed he will need a repeat EGD in 3 years for Dooley's esophagus 5. Continue current medical management 6. Continue Lasix 20mg BID and add Aldactone 50mg daily 7. Alcohol abstinence Thank you for this consultation. Dr. Hui Cheatham I agree with the dictator's note, documented as a scribe by Karolina Mondragon.
--- NOTE | 2021-03-20 14:07 | P.PN ---
Subjective Progress Note Date: 03/20/21 Principal diagnosis: Severe coronary protein malnutrition Anasarca, suspected secondary to alcoholic liver disease/cirrhosis Deconditioning and generalized weakness and chronic gait difficulty 80 years old male with past medical history of asthma Patient was transferred from [facility] for bilateral lower extremity swelling and edema and scrotal and penile swelling as well. Patient states that he presents because of diarrhea and generalized swelling including the scrotum which has been going on for the last 2 months but he could not specify what prompted him to come to emergency room today. Patient is bedbound for about a year, nonweightbearing, he told me last time he walked about 6 months ago. Also he does not follow up with his [facility] doctor and last Several Months Ago. that's Why Mainly He Eats Juices and liquids.. He lost weight 190 down to 150. He denies smoking or illicit drugs, he drinks 4 cups of liquor every day H cup about 4 ounces He denies depression or suicidal thoughts. 03/18/2021 Patient is seen and evaluated resting comfortably in bed; patient is status post PEG tube placement, POD #1; denies any complaint of pain Vital signs are stable with temperature of 98.3, pulse 13, respiration 18 and blood pressure 176/95 Surgery on board; no further concerns for incision site and patient is re commended to start tube feeding later today 03/19/2021 Patient is seen and evaluated somewhat curled up in bedside; reports cough which is productive of some yellowish; complain of cough is new; patient discussed with nursing staff and concerned about some abdominal distention; patient denies any pain Vital signs are reviewed which revealed a temperature of 97.8; upon auscultation patient does have some scattered wheezes; patient is saturating 94% on room air; acute feeding was started without any significant residual We will order stat abdominal and chest x-ray to rule out any ileus or bowel obstruction and possible aspiration 03/20/21 Patient is evaluated at the bedside, he has a tube feeding infusing at goal. Patient denies any nausea, vomiting, diarrhea, abdominal pain. Patient denies any chest pain, cough, shortness of breath, palpitations. Patient states that he is ready for discharge. Plan is for him to return with his daughter to her home in [place] where she will care for him. Plan will be for discharge tomorrow. Vital signs are stable, afebrile 98.2, heart rate 85 sinus rhythm, 126/55, 94% on room air. Hemoglobin remained stable at 8.7, potassium 3.6 replaced per protocol. ROS Constitutional: Denied any fatigue denied any fever. Cardio vascular: denied any chest pain, palpitations Gastrointestinal denied any nausea vomiting Pulmonary: Denied any shortness of breath cough Neurologic denied any new focal deficits All inpatient medications were reviewed and appropriate changes in these medications as dictated in the interval history and assessment and plan. PHYSICAL EXAMINATION: GENERAL: The patient is alert and oriented x3, not in any acute distress. Well developed, well nourished. HEENT: Pupils are round and equally reacting to light. EOMI. No scleral icterus. No conjunctival pallor. Normocephalic, atraumatic. No pharyngeal erythema. No thyromegaly. CARDIOVASCULAR: S1 and S2 present. No murmurs, rubs, or gallops. PULMONARY: Chest is clear to auscultation, no wheezing or crackles. ABDOMEN: Soft, nontender, nondistended, normoactive bowel sounds. No palpable organomegaly. MUSCULOSKELETAL: No joint swelling or deformity. EXTREMITIES: No cyanosis, clubbing, or pedal edema. NEUROLOGICAL: Gross neurological examination did not reveal any focal deficits. SKIN: No rashes. Assessment and plan Assessment: - Severe calorie protein malnutrition, with resultant edema improved with Lasix - Anasarca, 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 Improving - alcohol abuse associated with alcohol withdrawal - Mild microscopic hematuria, cystoscopy recommended as an outpatient - Elevated troponin. Unrelated to heart disease. 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 Patient refused rehab and he wants to go home - mild elements of cellulitis of the buttocks, improving - History of asthma, not an active issue - Hypertension - Mild pancytopenia, mostly secondary to alcohol affect . - Tachycardia, most likely atrial tachycardia rather than A. fib no need for anticoagulation per equipment sterilizer - Mildly elevated liver enzymes, mostly secondary to alcohol affect, with ASD more than ALT. Improving - Malnutrition. Severe coronary protein malnutrition - Chronically bedbound - Deconditioning and bad self hygiene - Bedridden with significantly reduced functional capacity. Plan: This is a pleasant 80 years old male who presents with anasarca, alcohol abuse Severe calorie protein malnutrition status post PEG tube placement, tube feedings are currently transfusing at goal, continue with oral protein supplements We will check CT of the chest, abdomen and pelvis with oral contrast, pending for now Lasix switched to oral. Continue with Fluid restriction 1200 mL per day, GI added Aldactone. Continue with Protonix and follow up with GI as an outpatient Cystoscopy as an outpatient for microscopic hematuria. Recommend subacute rehab upon discharge. Patient declines. Ordered home health care however patient now is going with his daughter to [place] when his discharge from this facility Continue with Augmentin Labs and medication were reviewed.. Continue same treatment. Continue with symptomatic treatment. Resume home medication. Monitor lytes and vitals. DVT and GI prophylaxis. Further recommendations depends on the clinical course of the patient DVT prophylaxis: Subcutaneous heparin GI Prophylaxis: Pepcid PT/OT: OSIEL, patient declines. He wants to go home Patient is on Lasix and Aldactone per GI services. They recommended a follow-up EGD in 3 years for a diagnosis of Dooley's esophagus. Patient will be discharged home with his daughter to [place] with a PEG tube in place. Plans for this to happen tomorrow. Objective - Vital Signs Vital signs: Vital Signs Temp 98.1 F 03/20/21 04:00 Pulse 97 03/20/21 08:19 Resp 20 03/20/21 04:00 BP 126/79 03/20/21 04:00 Pulse Ox 90 L 03/20/21 08:10 Intake & Output 03/19/21 03/20/21 03/20/21 18:59 06:59 18:59 Intake Total 0 918 Output Total 600 200 Balance -600 718 Weight 74.2 kg Intake: Oral 0 120 Tube Feeding 798 Output: Urine 200 Stool 600 Other: Voiding Method Urinal Urinal # Voids 1 # Bowel Movements 1 - Labs CBC & Chem 7: 03/19/21 05:31 03/19/21 05:31
[2021-03-20] MEDS: PANTOPRAZOLE 40 MG/10 ML VIAL IVP SCH (20:14)
[2021-03-21] MEDS: guaiFENesin SYRUP 100MG/5ML 200 MG/10 ML CUP PO PRN (06:21)
[2021-03-21] MEDS: THIAMINE 100 MG TAB PO SCH ×2 (06:23→16:31)
[2021-03-21] MEDS: FUROSEMIDE 20 MG TAB PO SCH ×2 (08:37→20:51)
[2021-03-21] MEDS: MULTIVITAMINS, THERA 1 EACH TAB PO SCH (08:37)
[2021-03-21] MEDS: MEGESTROL 400 MG/10 ML CUP PO SCH (08:37)
[2021-03-21] MEDS: TAMSULOSIN 0.4 MG CAP.ER.24H PO SCH (08:37)
[2021-03-21] MEDS: METOPROLOL TARTRATE 25 MG TAB PO SCH ×2 (08:37→20:52)
[2021-03-21] MEDS: SPIRONOLACTONE 25 MG TAB PO SCH (08:37)
[2021-03-21] MEDS: HEPARIN SODIUM,PORCINE/PF 5,000 UNIT/0.5 ML SYRINGE SQ SCH ×2 (08:37→20:52)
[2021-03-21] MEDS: PANTOPRAZOLE 40 MG/10 ML VIAL IVP SCH ×2 (08:38→20:52)
[2021-03-21] MEDS: NYSTATIN 100,000UNIT/GM CREAM 30 GM TUBE TOPICAL SCH ×2 (08:44→20:52)
[2021-03-21] MEDS: ALBUTEROL NEBULIZED 2.5 MG/3 ML INHALATION PRN ×3 (08:47→20:58)
[2021-03-21 10:24] LABS: HCT 22.8 % (39.0-53.0); HGB 7.7 gm/dL (13.0-17.5); MCH 34.8 pg (25.0-35.0); MCHC 33.7 g/dL (31.0-37.0); MCV 103.2 fL (80.0-100.0); Macrocytosis Slight; Mean Platelet Volume 10.7; Platelet Count 114 k/uL (150-450); RBC 2.21 m/uL (4.30-5.90); RDW 13.8 % (11.5-15.5); WBC 3.1 k/uL (3.8-10.6)
[2021-03-21 10:37] LABS: Potassium 3.6 mmol/L (3.5-5.1)
[2021-03-21 10:38] LABS: Calcium 7.4 mg/dL (8.4-10.2)
[2021-03-21 11:38] LABS: Band Neutrophils % 1 %; Basophils # (M) 0.03 k/uL (0-0.2); Eosinophils # (M) 0.06 k/uL (0-0.7); Lymphocytes # (M) 0.47 k/uL (1.0-4.8); Monocytes # (M) 0.25 k/uL (0-1.0); Neutrophils % (M) 73 %; Nucleated Red Blood Cells 0 /100 WBC (0-0); Total Cells Counted 100
--- NOTE | 2021-03-21 15:44 | P.PN ---
Subjective Progress Note Date: 03/21/21 Principal diagnosis: Severe coronary protein malnutrition Anasarca, suspected secondary to alcoholic liver disease/cirrhosis Deconditioning and generalized weakness and chronic gait difficulty 80 years old male with past medical history of asthma Patient was transferred from [facility] for bilateral lower extremity swelling and edema and scrotal and penile swelling as well. Patient states that he presents because of diarrhea and generalized swelling including the scrotum which has been going on for the last 2 months but he could not specify what prompted him to come to emergency room today. Patient is bedbound for about a year, nonweightbearing, he told me last time he walked about 6 months ago. Also he does not follow up with his [facility] doctor and last Several Months Ago. that's Why Mainly He Eats Juices and liquids.. He lost weight 190 down to 150. He denies smoking or illicit drugs, he drinks 4 cups of liquor every day H cup about 4 ounces He denies depression or suicidal thoughts. 03/18/2021 Patient is seen and evaluated resting comfortably in bed; patient is status post PEG tube placement, POD #1; denies any complaint of pain Vital signs are stable with temperature of 98.3, pulse 13, respiration 18 and blood pressure 176/95 Surgery on board; no further concerns for incision site and patient is re commended to start tube feeding later today 03/19/2021 Patient is seen and evaluated somewhat curled up in bedside; reports cough which is productive of some yellowish; complain of cough is new; patient discussed with nursing staff and concerned about some abdominal distention; patient denies any pain Vital signs are reviewed which revealed a temperature of 97.8; upon auscultation patient does have some scattered wheezes; patient is saturating 94% on room air; acute feeding was started without any significant residual We will order stat abdominal and chest x-ray to rule out any ileus or bowel obstruction and possible aspiration 03/20/21 Patient is evaluated at the bedside, he has a tube feeding infusing at goal. Patient denies any nausea, vomiting, diarrhea, abdominal pain. Patient denies any chest pain, cough, shortness of breath, palpitations. Patient states that he is ready for discharge. Plan is for him to return with his daughter to her home in [place] where she will care for him. Plan will be for discharge tomorrow. Vital signs are stable, afebrile 98.2, heart rate 85 sinus rhythm, 126/55, 94% on room air. Hemoglobin remained stable at 8.7, potassium 3.6 replaced per protocol. 03/21/2021 Plan is for patient to be discharged tomorrow, start her will be here from [place] and she will drive him home. Referral has been placed to the [place] for supplies to ship to [place]. His daughter also has some supplies purchased for the transport. Patient states that he did have an episode of difficulty breathing this morning however he states that exam he is having any thoughts breath, cough, chest pain, palpitations. He denies any nausea vomiting or diarrhea. He states he is tolerating his tube feedings well. Patient is alert and oriented. Hemoglobin today was 7.7, repeat in the morning. Monitor for any signs of bleeding, creatinine today is 1.65. Blood pressure today is 92/54, 92% on room air, heart rate 1:15. Patient is afebrile. Will proceed with some gentle hydration over the evening. ROS Constitutional: Denied any fatigue denied any fever. Cardio vascular: denied any chest pain, palpitations Gastrointestinal denied any nausea vomiting Pulmonary: Denied any shortness of breath cough Neurologic denied any new focal deficits All inpatient medications were reviewed and appropriate changes in these medications as dictated in the interval history and assessment and plan. PHYSICAL EXAMINATION: GENERAL: The patient is alert and oriented x3, not in any acute distress. Well developed, well nourished. HEENT: Pupils are round and equally reacting to light. EOMI. No scleral icterus. No conjunctival pallor. Normocephalic, atraumatic. No pharyngeal erythema. No thyromegaly. CARDIOVASCULAR: S1 and S2 present. No murmurs, rubs, or gallops. PULMONARY: Chest is clear to auscultation, no wheezing or crackles. ABDOMEN: Soft, nontender, nondistended, normoactive bowel sounds. No palpable organomegaly. MUSCULOSKELETAL: No joint swelling or deformity. EXTREMITIES: No cyanosis, clubbing, or pedal edema. NEUROLOGICAL: Gross neurological examination did not reveal any focal deficits. SKIN: No rashes. Assessment and plan Assessment: - Severe calorie protein malnutrition, with resultant edema improved with Lasix - Anasarca, 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 Improving - alcohol abuse associated with alcohol withdrawal - Mild microscopic hematuria, cystoscopy recommended as an outpatient - Elevated troponin. Unrelated to heart disease. 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 Patient refused rehab and he wants to go home - mild elements of cellulitis of the buttocks, improving - History of asthma, not an active issue - Hypertension - Mild pancytopenia, mostly secondary to alcohol affect . - Tachycardia, most likely atrial tachycardia rather than A. fib no need for anticoagulation per sales and marketing analyst - Mildly elevated liver enzymes, mostly secondary to alcohol affect, with ASD more than ALT. Improving - Malnutrition. Severe coronary protein malnutrition - Chronically bedbound - Deconditioning and bad self hygiene - Bedridden with significantly reduced functional capacity. Plan: This is a pleasant 80 years old male who presents with anasarca, alcohol abuse Severe calorie protein malnutrition status post PEG tube placement, tube feedings are currently transfusing at goal, continue with oral protein supplements Lasix switched to oral. Continue with Fluid restriction 1200 mL per day, GI added Aldactone. Continue with Protonix and follow up with GI as an outpatient Cystoscopy as an outpatient for microscopic hematuria. Recommend subacute rehab upon discharge. Patient declines. Ordered home health care however patient now is going with his daughter to [place] when his discharge from this facility Continue with Augmentin Labs and medication were reviewed.. Continue same treatment. Continue with symptomatic treatment. Resume home medication. Monitor lytes and vitals. DVT and GI prophylaxis. Further recommendations depends on the clinical course of the patient DVT prophylaxis: Subcutaneous heparin GI Prophylaxis: Pepcid PT/OT: OSIEL, patient declines. He wants to go home Patient is on Lasix and Aldactone per GI services. They recommended a follow-up EGD in 3 years for a diagnosis of Dooley's esophagus. Patient will be discharged home with his daughter to [place] with a PEG tube in place. Plans for this to happen tomorrow. Patient's hemoglobin did drop quite a bit 7.7, low blood pressures 92/54, creatinine increased to 1.6. Repeat labs in the morning, monitor blood pressure closely, okay with some gentle hydration. Monitor closely for signs of fluid overload. Objective - Vital Signs Vital signs: Vital Signs Temp 98.8 F 03/21/21 08:00 Pulse 80 03/21/21 11:41 Resp 16 03/21/21 11:41 BP 145/73 03/21/21 08:00 Pulse Ox 97 03/21/21 08:48 Intake & Output 03/20/21 03/21/21 03/21/21 18:59 06:59 18:59 Intake Total 0 576 Output Total 100 Balance 0 476 Weight 74.2 kg 73 kg Intake: Oral 0 120 Tube Feeding 456 Output: Urine 100 Other: Voiding Method Urinal # Voids 1 # Bowel Movements 1 1 - Labs CBC & Chem 7: 03/21/21 09:54 03/21/21 09:54 Labs: Abnormal Lab Results - Last 24 Hours (Table) 03/21/21 03/21/21 Range/Units 09:54 09:54 WBC 3.1 L (3.8-10.6) k/uL RBC 2.21 L (4.30-5.90) m/uL Hgb 7.7 L (13.0-17.5) gm/dL Hct 22.8 L (39.0-53.0) % MCV 103.2 H (80.0-100.0) fL Plt Count 114 L (150-450) k/uL Lymphocytes # (Manual) 0.47 L (1.0-4.8) k/uL Chloride 109 H (98-107) mmol/L BUN 25 H (9-20) mg/dL Creatinine 1.65 H (0.66-1.25) mg/dL Glucose 129 H (74-99) mg/dL Calcium 7.4 L (8.4-10.2) mg/dL
[2021-03-21] MEDS ORDERED: SODIUM CHLORIDE 0.9% 1,000 ML IV SCH (15:45)
--- NOTE | 2021-03-21 16:21 | P.PN ---
Subjective Progress Note Date: 03/21/21 Principal diagnosis: Dysphasia 72-year-old male who presented to the emergency department with complaints of dysphasia with difficulty and painful swallowing. Decreased appetite with significant weight loss over the past year. He underwent an EGD on 03/10/2021 showing Dooley's esophagus, linear erosions consistent with LA grade B reflux esophagitis, no evidence of esophageal stricture and a moderate size hiatal hernia. 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 Recommendation the patient is repeat upper endoscopy in 3 years. Patient is denying any abdominal pain, nausea, or vomiting. He continued to have a decreased appetite and would not eat. He did have a barium swallow study which was normal. He did undergo PEG tube placement by Dr. Britt on 03/17/2021. He is tolerating his PEG tube feedings. Patient had a CT of the chest, abdomen, and pelvis with findings of bullous pulmonary emphysema. Bilateral moderate pleural effusions and moderate abdominal ascites. Fatty infiltration of the liver. Subcutaneous edema around the abdomen could relate to some anasarca. The patient states he has been drinking for the last 2 years half of a pint to 1 pint a day. Denies any previous history of ascites or paracentesis. 03/21/21 patient seen and examined without any acute changes. Patient reports having a bowel movement today. He was started on Aldactone yesterday. Denies any shortness of breath or chest pain. Denies any abdominal pain, nausea, or vomiting. He has been afebrile. Plan is for discharge tomorrow and will live with his daughter in [place]. Objective - Vital Signs Vital signs: Vital Signs Temp 98.6 F 03/21/21 04:00 Pulse 72 03/21/21 08:48 Resp 18 03/21/21 08:48 BP 132/83 03/21/21 04:00 Pulse Ox 97 03/21/21 08:48 Intake & Output 03/20/21 03/21/21 03/21/21 18:59 06:59 18:59 Intake Total 0 576 Output Total 100 Balance 0 476 Weight 74.2 kg 73 kg Intake: Oral 0 120 Tube Feeding 456 Output: Urine 100 Other: Voiding Method Urinal # Voids 1 # Bowel Movements 1 1 - Exam General appearance: The patient is alert, oriented, appears in no acute distress. HET: Head is normocephalic and atraumatic. Conjunctiva pink. Sclera anicteric. Neck: Supple without lymphadenopathy. Abdomen: Soft,nontender, PEG tube intact, mildly distended with bowel sounds. No guarding or rigidity. Extremities: Normal skin color and turgor. No pedal edema Skin: No rashes, no jaundice Neurological: No focal deficits. Alert and oriented 3. - Labs CBC & Chem 7: 03/21/21 09:54 03/21/21 09:54 Labs: Abnormal Lab Results - Last 24 Hours (Table) 03/21/21 03/21/21 Range/Units 09:54 09:54 WBC 3.1 L (3.8-10.6) k/uL RBC 2.21 L (4.30-5.90) m/uL Hgb 7.7 L (13.0-17.5) gm/dL Hct 22.8 L (39.0-53.0) % MCV 103.2 H (80.0-100.0) fL Plt Count 114 L (150-450) k/uL Chloride 109 H (98-107) mmol/L BUN 25 H (9-20) mg/dL Creatinine 1.65 H (0.66-1.25) mg/dL Glucose 129 H (74-99) mg/dL Calcium 7.4 L (8.4-10.2) mg/dL Assessment and Plan (1) Ascites Narrative/Plan: abdominal ascites noted on CT of chest abdomen and pelvis. Also states fatty infiltration of liver. Patient likely has component of underlying liver disease related more to alcoholic cirrhosis of the liver. Continue with Lasix 20 mg twice a day, will add Aldactone 50 mg daily. Discussed importance of alcohol abstinence. Current Visit: Yes Status: Acute Code(s): R18.8 - OTHER ASCITES SNOMED Code(s): 144009776 (2) Dysphagia Narrative/Plan: 80-year-old male who was a transfer to our emergency department from outside facility for generalized anasarca and shortness of breath. Gastroenterology was consulted for complaints of dysphagia for the last 2 years duration, patient states he is unable to swallow solids without becoming stuck. Patient denies any nausea or vomiting. States he is only taking in liquids and soft foods. States he has had a weight loss of 40-50 pounds in the last 1 year duration. He has had a modified barium swallow 2 years ago that showed a small sliding hiatal hernia, he underwent barium swallow this admission showing no penetration or aspiration observed. Speech therapy evaluated patient and states they believe he has got swelling due to confusion otherwise they recommend soft diet. Patient states he had some workup done in [facility] 2 years ago and was referred to a pole framer in [place] and was scheduled to undergo an EGD, however due to covert he canceled his appointment. He states he wants to get his COVID-19 vaccine however is having difficulty getting it. States he does not want any EGD or colonoscopy until he is is vaccinated, and will plan on fol lowing up with original pole framer out of [place]. He does complain of acid reflux, does not take any medications regularly for it. He does not follow-up regular with his PCP. He denies any previous EGD or colonoscopy. patient underwent EGD on 03/10/2021 with findings of long segment Dooley's esophagus, linear erosions proximal to Dooley's esophagus consistent with LA grade B reflux esophagitis, no evidence of esophageal stricture, moderate size hiatal hernia. Current Visit: Yes Status: Acute Code(s): R13.10 - DYSPHAGIA, UNSPECIFIED SNOMED Code(s): 34977974 (3) Diarrhea Narrative/Plan: resolved Current Visit: Yes Status: Acute Code(s): R19.7 - DIARRHEA, UNSPECIFIED SNOMED Code(s): 69360686 Plan: 1. Continue symptomatic and supportive care 2. Patient is status post EGD 3. Recommend outpatient colonoscopy 4. Patient instructed he will need a repeat EGD in 3 years for Dooley's esophagus 5. Continue current medical management 6. Continue Lasix 20mg BID and Aldactone 50mg daily 7. Alcohol abstinence Thank you for this consultation, patient is stable for discharge from a gastroenterology standpoint. Dr. Hui Cheatham I agree with the dictator's note, documented as a scribe by Karolina Mondragon.
[2021-03-22] MEDS: THIAMINE 100 MG TAB PO SCH (06:40)
[2021-03-22] MEDS: ALBUTEROL NEBULIZED 2.5 MG/3 ML INHALATION PRN ×2 (07:41→11:32)
[2021-03-22 07:57] LABS: Basophils % (A) 1 %; Eosinophils # (A) 0.1 k/uL (0-0.7); Eosinophils % (A) 1 %; HCT 22.9 % (39.0-53.0); HGB 7.7 gm/dL (13.0-17.5); Lymphocytes # (A) 0.5 k/uL (1.0-4.8); Lymphocytes % (A) 13 %; MCH 35.1 pg (25.0-35.0); MCHC 33.5 g/dL (31.0-37.0); MCV 104.6 fL (80.0-100.0); Macrocytosis Slight; Monocytes # (A) 0.3 k/uL (0-1.0); Monocytes % (A) 7 %; Neutrophils # (A) 3.2 k/uL (1.3-7.7); Neutrophils % (A) 77 %; RBC 2.19 m/uL (4.30-5.90); RDW 13.8 % (11.5-15.5); WBC 4.2 k/uL (3.8-10.6)
[2021-03-22 08:00] LABS: Platelet Count 107 k/uL (150-450)
[2021-03-22 08:23] LABS: Calcium 7.3 mg/dL (8.4-10.2)
[2021-03-22] MEDS: MULTIVITAMINS, THERA 1 EACH TAB PO SCH (08:52)
[2021-03-22] MEDS: SPIRONOLACTONE 25 MG TAB PO SCH (08:52)
[2021-03-22] MEDS: METOPROLOL TARTRATE 25 MG TAB PO SCH (08:52)
[2021-03-22] MEDS: TAMSULOSIN 0.4 MG CAP.ER.24H PO SCH (08:52)
[2021-03-22] MEDS: FUROSEMIDE 20 MG TAB PO SCH (08:52)
[2021-03-22] MEDS: HEPARIN SODIUM,PORCINE/PF 5,000 UNIT/0.5 ML SYRINGE SQ SCH (08:52)
[2021-03-22] MEDS: PANTOPRAZOLE 40 MG/10 ML VIAL IVP SCH (08:53)
[2021-03-22] MEDS: MEGESTROL 400 MG/10 ML CUP PO SCH (08:53)
[2021-03-22] MEDS: NYSTATIN 100,000UNIT/GM CREAM 30 GM TUBE TOPICAL SCH (08:59)
[2021-03-22 09:08] VITALS: TEMP 98.3
[2021-03-22 11:45] VITALS: BMI 22.9
[2021-03-22 12:22] VITALS: BP 123/70; PULSE 99; RESP 16
[2021-03-22] MEDS ORDERED: LIDOCAINE URO-JET JELLY 2% 5 ML KIT URETHRAL ONE (13:00)
--- NOTE | 2021-03-22 14:54 | P.DS ---
Providers Date of admission: 03/07/21 18:40 Attending physician: Max Stewart MD Consults: 03/09/21 11:22 Consult Physician Urgent Consulting Provider: Annabel Cheatham Consult Reason/Comments: dysphagia, diarrhea Do you want consulting provider notified?: Yes 03/09/21 11:23 Consult Physician Urgent Consulting Provider: Jewel Godinez Consult Reason/Comments: hematuria , scrotal swelling Do you want consulting provider notified?: Yes 03/10/21 20:06 Consult Physician Urgent Consulting Provider: Floyd Dueñas Consult Reason/Comments: new onset afib with rvr Do you want consulting provider notified?: Already Contacted 03/14/21 13:39 Consult Physician Routine Consulting Provider: Vasyl Regan Consult Reason/Comments: capacity evaluation; possible depression Do you want consulting provider notified?: Already Contacted 03/16/21 09:17 Consult Physician Urgent Consulting Provider: Yinka Lakhani Consult Reason/Comments: needs peg tube Do you want consulting provider notified?: Yes Primary care physician: [facility] Hospital Course: Final diagnoses - Severe calorie protein malnutrition, with resultant edema improved with Lasix - Anasarca, 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 Improving - alcohol abuse associated with alcohol withdrawal - Mild microscopic hematuria, cystoscopy recommended as an outpatient - Elevated troponin. Unrelated to heart disease. 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 Patient refused rehab and he wants to go home - mild elements of cellulitis of the buttocks, improving - History of asthma, not an active issue - Hypertension - Mild pancytopenia, mostly secondary to alcohol affect . - Tachycardia, most likely atrial tachycardia rather than A. fib no need for anticoagulation per senior network security engineer - Mildly elevated liver enzymes, mostly secondary to alcohol affect, with ASD more than ALT. Improving - Malnutrition. Severe coronary protein malnutrition - Chronically bedbound - Deconditioning and bad self hygiene - Bedridden with significantly reduced functional capacity. Discharge physician Patient is discharged home with his daughter who they're driving to [place] today. Patient's daughter and her are at the bedside. They're educated in all discharge instructions. This morning was found the patient has a significant urinary retention and his postvoid residuals are greater than 400. Patient initially refused an indwelling catheter for transport and follow-up in [place], however writing PASSENGER FLAGMAN was able to place a 14-Peruvian coud catheter utilizing a Urojet for patient's comfort. Patient's daughter is aware of patient's current medical status and agrees to all appropriate follow-ups. Patient's daughter was handed the prescriptions for patient's lab work that is needed in 3 days. It was discussed with patient's family at the bedside regarding patient's elevated BUN and creatinine is an acute finding, they would still like to proceed with the discharge as patient's daughter has driven all the way from [place] to take her father home with her for continued care. Hospital course This is a 80-year-old gentleman with a past history for asthma, hypertension, pneumonia, frequent falls at home, EtOH she reports drinking with 6 ounces to 1.5 per day. Additionally patient has a history of hernia repair and orthopedic surgery to the left rotator cuff. Patient has ADD HD, he reports that he is a never smoker and has occasional marijuana use. Patient was initially evaluated by cardiology, due to severe lower extremity swelling and edema as well as scrotal and penis edema. Patient was transferred over from [facility]. He was also having diarrhea and generalized swelling to the scrotum which is ongoing for the last 2 months. Patient is bedbound for over a year, nonweightbearing. He states he is less marked was 6 months ago. He has not seen his [facility] physician in the last several months. He has recently lost about 40 pounds from 190 down to 150. Patient is a daily drinker about 4 cups of occurring everyday. He denies any depression or suicidal ideations. Cardio G consult was due to an atrial arrhythmia that was found in the EC. Patient's ejection fraction this admission was 50-50% echocardiogram also revealed a preserved LV systolic function was a technical difficult study with suboptimal views. Patient was treated for peripheral edema secondary to hypoalbuminemia secondary to malnutrition and alcoholism as well as an atrial arrhythmia. There was no evidence of atrial fibrillation. Troponin elevation was not suggestive any acute cardiac event. Cardiology has signed off early this admission. Patient evaluated in neurology on March 12 for difficulty with incomplete bladder emptying. He was found to microscopic bacteria that would need an evaluation and follow-up. The nursing staff was unable to cath the patient on March 12. It is suspected the patient is a possible stricture patient denies a need for catheterization and will follow-up as an outpatient for cystoscopy for urethral dilation. Patient was also evaluated by GI services this admission patient had an EGD on 03/10/2021 which revealed Dooley's esophagus, linear erosions consistent with LA grade B reflux esophagitis. There was no evidence for esophageal stricture and a moderate-sized hiatal hernia was present as well. Patient is recommended to repeat the endoscopy in 3 years. Patient had a barium swallow which was normal however due to severe protein calorie malnutrition patient had a PEG tube placed by Dr. Britt on 03/17/2021. Patient is at his goal of feedings, and we'll continue with these feedings on discharge. Abdomen pelvis CT revealed abdominal ascites, fatty infiltration of the liver. This is most likely related to an underlying liver disease most likely alcoholic cirrhosis of liver. Patient was started on Lasix 20 mg daily as well as Aldactone 50 mg daily. He is counseled extensively on alcohol cessation. Patient's hemoglobin has remained stable 7.7-8.3. It continues to be no signs of bleeding. Close monitoring on follow-up for this. On 03/21/2021 patient's creatinine increased from 1.02-1.65 overnight, BUN 25. Patient was given some gentle hydration of 500 mL throughout the evening. On 03/22/2021 patient's creatinine is 1.52. It was felt that due to patient's urinary retention that was discovered today is an ongoing issue, patient will benefit from placement of an indwelling catheter for discharge. Patient initially refused however writing PASSENGER FLAGMAN was able to place a 14-Peruvian coud catheter. Patient's vital signs are stable, afebrile at 98.3, heart rate 99, blood pressure 123/70, 90% on room air. 03/22/2021 Patient was evaluated at the bedside today. He denies any chest pain or palpitations. He denies any cough or shortness of breath. Patient states that he is unable to completely empty his bladder. The patient is voiding 100 mls every hr or so. Patient is retaining postvoid residual was over 400, a 14- Peruvian coud catheter was placed at the bedside for discharge. Patient will follow-up with a urologist in [place]. Patient does have some mild 1+ edema around the ankles that has been stable this admission. In addition patient does have some linear scabbing to his left ankle. Patient was treated with a one- time dose of permethrin. It is felt that this is likely scabies infection is healing. Patient's daughter at the bedside is aware of this and will continue to monitor. Patient denies any further itching to the ankle this time. Patient was cleared for discharge today with his daughter who is an RN in [place]. He will be making benign overdrive home to live with her with his daughter and her . Patient is PEG tube in place, site looks intact, there is no draining or erythema. Patient is on a continuous TwoCal HN formula with a goal rate of 30 at most per hour. Patient has been tolerating this without residuals. There is no nausea or vomiting or diarrhea. Patient's lungs are clear to auscultation, S1-S2 are auscultated. This patient requires significant follow- up care with multiple specialists including cardiology, GI, urology. Patient [facility] follow with [facility], he has a extrusion die coordinator who is arranging for transfer to the [facility] in [place]. Please see medication reconciliation for list of current medications. Thank you for allowing us to participate in the care of this patient. Patient Condition at Discharge: Stable Plan - Discharge Summary New Discharge Prescriptions: New Tamsulosin [Flomax] 0.4 mg PO PC-BRKFST 30 Days #30 tab Furosemide [Lasix] 20 mg PO BID #60 tab Thiamine [Vitamin B-1] 100 mg PO BID-W/MEALS #60 tab Spironolactone [Aldactone] 50 mg PO DAILY #30 tab Ondansetron Odt [Zofran Odt] 4 mg PO Q8HR PRN #20 tab PRN Reason: Nausea Amoxic-Pot Clav 875-125Mg [Augmentin 875-125] 1 each PO Q12H 5 Days #10 tab Metoprolol Tartrate [Lopressor] 50 mg PO BID #120 tab Nystatin 100,000Unit/gm Cream [Mycostatin Cream] 1 applic TOPICAL BID 3 Days #1 tub Pantoprazole [Protonix] 40 mg PO AC-BID #60 tab Megestrol [Megace] 400 mg PO DAILY #30 ml Continue diphenhydrAMINE [Benadryl] 25 mg PO DAILY PRN PRN Reason: ALLERGIES Changed Albuterol Inhaler [Ventolin Hfa Inhaler] 1 puff INHALATION QID PRN #1 inh PRN Reason: Shortness Of Breath Discontinued guaiFENesin [guaiFENesin Oral Solution] 1 dose PO DAILY PRN PRN Reason: Cough Discharge Medication List diphenhydrAMINE [Benadryl] 25 mg PO DAILY PRN 03/07/21 [History] Albuterol Inhaler [Ventolin Hfa Inhaler] 1 puff INHALATION QID PRN #1 inh 03/13/21 [Rx] Amoxic-Pot Clav 875-125Mg [Augmentin 875-125] 1 each PO Q12H 5 Days #10 tab 03/13/21 [Rx] Furosemide [Lasix] 20 mg PO BID #60 tab 03/13/21 [Rx] Metoprolol Tartrate [Lopressor] 50 mg PO BID #120 tab 03/13/21 [Rx] Nystatin 100,000Unit/gm Cream [Mycostatin Cream] 1 applic TOPICAL BID 3 Days #1 tub 03/13/21 [Rx] Pantoprazole [Protonix] 40 mg PO AC-BID #60 tab 03/13/21 [Rx] Tamsulosin [Flomax] 0.4 mg PO PC-BRKFST 30 Days #30 tab 03/13/21 [Rx] Thiamine [Vitamin B-1] 100 mg PO BID-W/MEALS #60 tab 03/13/21 [Rx] Megestrol [Megace] 400 mg PO DAILY #30 ml 03/22/21 [Rx] Ondansetron Odt [Zofran Odt] 4 mg PO Q8HR PRN #20 tab 03/22/21 [Rx] Spironolactone [Aldactone] 50 mg PO DAILY #30 tab 03/22/21 [Rx] Follow up Appointment(s)/Referral(s): Adama Bernard MD [STAFF PHYSICIAN] - 2 Weeks (senior network security engineer) Annabel Cheatham MD [STAFF PHYSICIAN] - 03/27/21 1:00 pm (please have patient call office with correct insurance information before visit.) [facility] [NON-STAFF] - As Needed Orlando Brooks MD [STAFF PHYSICIAN] - 2 Weeks (office will call patient with appt.time and date.) [facility] [Primary Care Provider] - 03/22/21 2:00 pm Ambulatory/Diagnostic Orders: Basic Metabolic Panel [LAB.AMB] Location: None Selected Complete Blood Count w/diff [LAB.AMB] Time Frame: 3 Days, Location: None Selected Patient Instructions/Handouts: Failure to Thrive (DC), Soft Diet (ED), Dooley Esophagus (DC), Acute Diarrhea (ED), Edema (DC), Dysphagia (ED) Activity/Diet/Wound Care/Special Instructions: customer services coordinator with [facility] [place] - [phone] Ext [phone] Tube feeding/supplies - approved and [facility] the [facility] Discharge Disposition: HOME SELF-CARE Plan of Treatment: Tube Feeding Recommend renting a pump for the first month if that's possible. If not use the drip method. Continuous: Formula: 2 HERNESTO HN Goal rate of 38 mL/hr 30 mL free water flush every 4 hours Drip: 7 drops per minute Only pour 8 hours worth of formula into the bag at one time- Pour 320 mL into the bag at a time Put unused formula in the refrigerator for up to 24 hours. Discard if not used Total volume used per day 960 mL Bolus: Once patient has had PEG tube for a month or two and is tolerating it well, you can bolus feed 240 mL at a time 30 mL free water flush every 4 hours Goal is 4 cans/day or 960 mL/day Patient will be driving back to [place] with his Dtr today. Scripts are sent and filled at hospital pharmacy. Script given for repeat CBC and BMP in 3 days once pt arrives to [place]. Patient is experiencing some urinary retention with elevated BUN and Cr- check PVR prior to discharge please.
== END 2021-03-22 14:32 | disposition home or self-care (01) | DRG 432 ==
LOC: EC 17:15 → 5NMEDONC 18:40 → 3SCARD 03-10 20:38
PROVIDERS: ADMIT Internal Medicine; ATTEND Internal Medicine
PROC: 0DB38ZX Excision of Lower Esophagus, Via Natural or Artificial Opening Endoscopic, Diagnostic (ICD-10-PCS; principal; 2021-03-10 07:30)
PROC: 0DH63UZ Insertion of Feeding Device into Stomach, Percutaneous Approach (ICD-10-PCS; 2021-03-17)
DX: K70.31 Alcoholic cirrhosis of liver with ascites (principal); E43 Unspecified severe protein-calorie malnutrition; D61.818 Other pancytopenia; F10.239 Alcohol dependence with withdrawal, unspecified; I47.1 Supraventricular tachycardia; L03.317 Cellulitis of buttock; Z20.822 Contact with and (suspected) exposure to COVID-19; I47.2 Ventricular tachycardia; D68.9 Coagulation defect, unspecified; R62.7 Adult failure to thrive; Z74.01 Bed confinement status; Z79.899 Other long term (current) drug therapy; Z68.20 Body mass index [BMI] 20.0-20.9, adult; R31.29 Other microscopic hematuria; I10 Essential (primary) hypertension; E88.09 Other disorders of plasma-protein metabolism, not elsewhere classified; F17.200 Nicotine dependence, unspecified, uncomplicated; F90.9 Attention-deficit hyperactivity disorder, unspecified type; K22.70 Barrett's esophagus without dysplasia; K44.9 Diaphragmatic hernia without obstruction or gangrene; E87.6 Hypokalemia; I48.91 Unspecified atrial fibrillation; N50.89 Other specified disorders of the male genital organs; N48.89 Other specified disorders of penis; R47.02 Dysphasia; K21.00 Gastro-esophageal reflux disease with esophagitis, without bleeding; J44.9 Chronic obstructive pulmonary disease, unspecified; F12.90 Cannabis use, unspecified, uncomplicated; K76.0 Fatty (change of) liver, not elsewhere classified
CPT/HCPCS: 43239; 43246; 71045; 71046; 71250; 74018; 74176; 74230; 76705; 76770; 80048; 80053; 80074; 80076; 81001; 82607; 83036; 83630; 83735; 83880; 84132; 84145; 84443; 84484; 85025; 85027; 85610; 85730; 87045; 87046; 87324; 87635; 88305; 93005; 93306; 93970; 94640; 94760; 96372; 96374; 96375; 99285

== ENCOUNTER 2021-11-09 12:31 | Emergency (ER) | payer OTHER, MEDICARE ==
[2021-11-09 14:07] VITALS: PULSE 84; RESP 16; TEMP 98
[2021-11-09 14:44] LABS: Basophils % (A) 1 %; Eosinophils # (A) 0.9 k/uL (0-0.7); Eosinophils % (A) 12 %; HCT 32.7 % (39.0-53.0); HGB 10.9 gm/dL (13.0-17.5); Lymphocytes # (A) 0.9 k/uL (1.0-4.8); Lymphocytes % (A) 14 %; MCHC 33.4 g/dL (31.0-37.0); MCV 89.8 fL (80.0-100.0); Mean Platelet Volume 8.3; Monocytes # (A) 0.4 k/uL (0-1.0); Monocytes % (A) 5 %; Neutrophils # (A) 4.7 k/uL (1.3-7.7); Neutrophils % (A) 66 %; Platelet Count 215 k/uL (150-450); RBC 3.64 m/uL (4.30-5.90); RDW 13.2 % (11.5-15.5)
[2021-11-09 15:04] LABS: Albumin 4.1 g/dL (3.5-5.0); Calcium 8.9 mg/dL (8.4-10.2); Total Bilirubin 0.6 mg/dL (0.2-1.3); Total Protein 7.1 g/dL (6.3-8.2)
--- NOTE | 2021-11-09 19:34 | ED ---
General Adult HPI - General Chief complaint: Recheck/Abnormal Lab/Rx Stated complaint: [facility], [facility] Time Seen by Provider: 11/09/21 18:53 Source: patient, RN notes reviewed Mode of arrival: wheelchair Limitations: no limitations, physical limitation - History of Present Illness Initial comments: 81-year-old male presents to emergency department at the direction of his [place]. Patient states he received a call this morning stating that his renal function has declined and that he needs to go to the emergency department for further evaluation and treatment. Patient states he is entirely asymptomatic at this time and feels wonderful. States he has small urine output, but reports this is normal for him. Has elevated blood pressure, but states this is also normal for him and it will return to normal when he is at rest. Denies any new medication changes. No fever, chills, headache, dizziness, chest pain, shortness of breath, abdominal pain, nausea, vomiting, diarrhea, dysuria, or edema. - Related Data Home Medications Medication Instructions Recorded Confirmed Albuterol Sulfate [Proair Hfa] 1 puff INHALATION RT-QID PRN 11/09/21 11/09/21 Furosemide [Lasix] 20 mg PO DAILY 11/09/21 11/09/21 Metoprolol Tartrate [Lopressor] 50 mg PO Q12H 11/09/21 11/09/21 Allergies Allergy/AdvReac Type Severity Reaction Status Date / Time No Known Allergies Allergy Verified 11/09/21 21:30 Review of Systems ROS Statement: Those systems with pertinent positive or pertinent negative responses have been documented in the HPI. ROS Other: All systems not noted in ROS Statement are negative. Past Medical History Past Medical History: Asthma, Hypertension, Pneumonia Additional Past Medical History / Comment(s): falls, ETOH-pt reports drinking 6oz to 1 pint of Vodka/day. History of Any Multi-Drug Resistant Organisms: None Reported Past Surgical History: Hernia Repair, Orthopedic Surgery Additional Past Surgical History / Comment(s): left rotator cuff repair Past Psychological History: No Psychological Hx Reported Smoking Status: Never smoker Past Alcohol Use History: None Reported Past Drug Use History: None Reported - Past Family History Father Additional Family Medical History / Comment(s): none General Exam Limitations: no limitations, physical limitation (Ambulates with cane.) General appearance: alert, in no apparent distress (Well-developed, well- nourished male in no acute distress. Initial temperature 98.0, pulse 84, respirations 16, blood pressure 180/92, pulse ox 96% on room air.) Eye exam: Present: normal appearance, PERRL, EOMI. Absent: scleral icterus, conjunctival injection, periorbital swelling ENT exam: Present: mucous membranes moist Respiratory exam: Present: normal lung sounds bilaterally. Absent: respiratory distress, wheezes, rales, rhonchi, stridor, chest wall tenderness Cardiovascular Exam: Present: regular rate, normal rhythm, normal heart sounds. Absent: systolic murmur, diastolic murmur, rubs, gallop, clicks GI/Abdominal exam: Present: soft, normal bowel sounds, other (G-tube present in the left abdomen; states it is no longer being used as he is able to tolerate oral intake without difficulty). Absent: distended, tenderness, guarding, rebound, rigid Extremities exam: Absent: normal inspection (Mild trace lower extremity edema, nonpitting.) Back exam: Absent: CVA tenderness (R), CVA tenderness (L) Neurological exam: Present: alert, oriented X3, CN II-XII intact Psychiatric exam: Present: normal affect, normal mood Skin exam: Present: warm, dry, intact, normal color. Absent: rash Course Vital Signs 11/09/21 11/09/21 14:04 22:18 Temperature 98 F Pulse Rate 84 Respiratory 16 Rate Blood Pressure 180/92 194/113 O2 Sat by Pulse 96 Oximetry - Reevaluation(s) Reevaluation #1: 11/09/21 19:30 On initial evaluation, discussed the patient's elevated blood pressure reading. He insists that this is normal for him and that it will return to more acceptable level at rest. States he has taken his regular home medications today and is not worried about the elevated reading. Talked with patient about the co ncerns with worsening renal function and elevated blood pressure- he continues to insist that this situation is not unusual for him and that he does not need any additional treatment for hypertension. 11/09/21 20:50 This patient's care was discussed with my attending; patient will be given IV fluids, encouraged increase intake of fluids, and follow up with nephrology on an outpatient basis. Patient is agreeable with this plan of care. Medical Decision Making - Medical Decision Making This is a 81-year-old male with a past medical history of asthma, hypertension, and EtOH use who presents to the emergency department for evaluation of w orsening renal function. Patient was sent from his PCP [place] the [place]. Upon exam, patient is well-appearing and in no acute distress. Matter of fact, patient insists that he is well and "feeling fantastic." Patient is found to be hypertensive upon arrival. Blood pressure was monitored and sustains elevated. These readings were discussed with patient at length and placed within context of worsening renal function. Patient states his blood pressure will return to normal when he is at home and declined any further treatment for his elevated blood pressure reading. States he is taking his home medications as prescribed. Laboratory studies were reviewed. BUN 25, creatinine 1.88, GFR 33. Uri nalysis shows 2+ protein and large urine blood with 29 RBCs, and 7 hyaline casts. Patient was given IV fluids and encouraged to improve hydration at home. Instructed to follow up with nephrology next week. Return parameters discussed in detail. Patient verbalizes understanding and agrees with this plan. Attending: Leena. - Lab Data Result diagrams: 11/09/21 14:35 11/09/21 14:35 Lab Results 11/09/21 11/09/21 11/09/21 Range/Units 14:35 14:35 19:39 WBC 7.0 (3.8-10.6) k/uL RBC 3.64 L (4.30-5.90) m/uL Hgb 10.9 L (13.0-17.5) gm/dL Hct 32.7 L (39.0-53.0) % MCV 89.8 (80.0-100.0) fL MCH 30.0 (25.0-35.0) pg MCHC 33.4 (31.0-37.0) g/dL RDW 13.2 (11.5-15.5) % Plt Count 215 (150-450) k/uL MPV 8.3 Neutrophils % 66 % Lymphocytes % 14 % Monocytes % 5 % Eosinophils % 12 % Basophils % 1 % Neutrophils # 4.7 (1.3-7.7) k/uL Lymphocytes # 0.9 L (1.0-4.8) k/uL Monocytes # 0.4 (0-1.0) k/uL Eosinophils # 0.9 H (0-0.7) k/uL Basophils # 0.0 (0-0.2) k/uL Sodium 143 (137-145) mmol/L Potassium 5.0 (3.5-5.1) mmol/L Chloride 109 H (98-107) mmol/L Carbon Dioxide 26 (22-30) mmol/L Anion Gap 8 mmol/L BUN 25 H (9-20) mg/dL Creatinine 1.88 H (0.66-1.25) mg/dL Est GFR (CKD-EPI)AfAm 39 (>60 ml/min/1.73 sqM) Est GFR (CKD-EPI)NonAf 33 (>60 ml/min/1.73 sqM) Glucose 121 H (74-99) mg/dL Calcium 8.9 (8.4-10.2) mg/dL Total Bilirubin 0.6 (0.2-1.3) mg/dL AST 21 (17-59) U/L ALT 7 (4-49) U/L Alkaline Phosphatase 49 (38-126) U/L Total Protein 7.1 (6.3-8.2) g/dL Albumin 4.1 (3.5-5.0) g/dL Urine Color Light Yellow Urine Appearance Clear (Clear) Urine pH 5.5 (5.0-8.0) Ur Specific [place] 1.010 (1.001-1.035) Urine Protein 2+ H (Negative) Urine Glucose (UA) Negative (Negative) Urine Ketones Negative (Negative) Urine Blood Large H (Negative) Urine Nitrite Negative (Negative) Urine Bilirubin Negative (Negative) Urine Urobilinogen <2.0 (<2.0) mg/dL Ur Leukocyte Esterase Negative (Negative) Urine RBC 29 H (0-5) /hpf Urine WBC 2 (0-5) /hpf Ur Squamous Epith Cells <1 (0-4) /hpf Hyaline Casts 7 H (0-2) /lpf Urine Mucus Occasional H (None) /hpf Disposition Clinical Impression: Renal impairment, Chronic hypertension Disposition: HOME SELF-CARE Condition: Stable Instructions (If sedation given, give patient instructions): Chronic Kidney Disease (ED) Additional Instructions: Increase intake of fluids. Drink water instead of caffeinated beverages. Please follow up with roughener (kidney doctor). Contact information is provided in this paperwork. Return to the emergency department with any new, worsening, or concerning symptoms. Is patient prescribed a controlled substance at d/c from ED?: No Referrals: Marta Key NPC [Primary Care Provider] - 1-2 days Uma Mccollum MD [STAFF PHYSICIAN] - 1-2 days Time of Disposition: 22:10
[2021-11-09 19:48] LABS: Appearance,Urine Clear (Clear); Bilirubin,Urine Negative (Negative); Blood,Urine Large (Negative); Color,Urine Light Yellow; Glucose,Urine (UA) Negative (Negative); Hyaline Casts,Urine 7 /lpf (0-2); Ketones,Urine Negative (Negative); Leukocyte Esterase,Urine Negative (Negative); Mucus,Urine Occasional /hpf; Nitrite,Urine Negative (Negative); PH, Urine 5.5 (5.0-8.0); Protein,Urine 2+ (Negative); RBC,Urine 29 /hpf (0-5); Squamous Epithelial Cell,Urine <1 /hpf (0-4); Urobilinogen,Urine <2.0 mg/dL (<2.0); WBC,Urine 2 /hpf (0-5)
--- NOTE | 2021-11-09 19:52 | XR ---
EXAMINATION TYPE: XR chest 2V DATE OF EXAM: 11/09/2021 7:46 PM COMPARISON: Chest radiographs from 03/19/2021 TECHNIQUE: XR chest 2V 2 view. CLINICAL INDICATION:Male, 81 years old with history of cough; FINDINGS: Lungs/Pleura: There is blunting of the costophrenic angles most pronounced posteriorly. There is no e vidence of pleural effusion, focal consolidation, or pneumothorax. Pulmonary vascularity: Unremarkable. Heart/mediastinum: Cardiomediastinal silhouette is enlarged and stable. Musculoskeletal: No acute osseous pathology. IMPRESSION: Bilateral pleural effusions similar prior. No evidence for acute process.
[2021-11-09] MEDS ORDERED: SODIUM CHLORIDE 0.9% 1,000 ML IV STA (20:56)
[2021-11-09 22:18] VITALS: BP 194/113
== END 2021-11-09 22:53 | disposition home or self-care (01) ==
LOC: EC 12:31
DX: N28.9 Disorder of kidney and ureter, unspecified (principal); J45.909 Unspecified asthma, uncomplicated; I10 Essential (primary) hypertension
CPT/HCPCS: 36415; 71046; 80053; 81001; 85025

== ENCOUNTER → 2022-06-26 | Outpatient (CLI) | payer OTHER ==
--- NOTE | 2022-06-26 15:42 | US ---
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 Technique: Multiple sonographic images of the kidneys and bladder are obtained. FINDINGS: EXAM MEASUREMENTS: Right Kidney: 10.1 x 5.2 x 4.8 cm Left Kidney: 10.5 x 4.4 x 4.5 cm No hydronephrosis on either side. Right Kidney: no masses seen Left Kidney: Multiple cysts. There is lobulated appearing cyst measuring 2.3 x 1.2 x 2.4cm at the mid pole. Low level internal echoes are present. Lower pole cyst measures 2.3 cm. 9 mm probable cyst at t he lower pole with a 2 mm calcification suggesting a minimally complex cyst. Bladder: Partially distended. Enlarged prostate gland with soft tissue compressing onto the base of t he bladder. Bilateral Jets seen: Catal[employer] Manager notes: Possible left diverticulum. Not well depicted on the provid ed images. IMPRESSION: 1. Multiple lesions of the left kidney seen on 03/16/2021 CT are not well depicted by ultrasound. Ther e is a benign 2.3 cm lower pole cyst. A 2.4 cm, lobulated cystic lesion at the midpole may be mildly complex with internal echoes. Either ultrasound follow-up or further characterization with kidney MRI is recommended. 2. No hydronephrosis. 3. Prostatomegaly with soft tissue impressing on the base of the bladder. Correlate with PSA values a nd for symptoms of potential BPH.
== END | disposition home or self-care (01) ==
LOC: RADUSWWP 13:37
PROVIDERS: ATTEND Urology
DX: D41.02 Neoplasm of uncertain behavior of left kidney (principal); N40.0 Benign prostatic hyperplasia without lower urinary tract symptoms; N28.89 Other specified disorders of kidney and ureter
CPT/HCPCS: 76770

== ENCOUNTER 2023-07-31 15:20 | Inpatient (IN) | payer OTHER, MEDICARE ==
[2023-07-31] MEDS: SODIUM CHLORIDE 0.9% 1,000 ML IV STA (15:45)
[2023-07-31] MEDS: MORPHINE SULFATE 4 MG/ML SYRINGE IV STA (15:52)
--- NOTE | 2023-07-31 16:11 | ED ---
Fall HPI - General Chief Complaint: Fall Stated Complaint: L Hip Pain Time Seen by Provider: 07/31/23 15:26 Source: patient, EMS, RN notes reviewed, old records reviewed Mode of arrival: EMS Limitations: no limitations - History of Present Illness Initial Comments: This is a 83-year-old male to the ER for evaluation today. Patient presented for evaluation of fall fall with left hip pain. 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 Witnessed: no Place Fall Occurred: home Loss of Consciousness: none Prolonged Down Time?: no Symptoms Prior to Fall: none Location - Extremities: Left: Thigh Severity: severe Severity scale (1-10): 10 Context: tripped/slipped Associated Symptoms: denies - Related Data Home Medications Medication Instructions Recorded Confirmed Albuterol Sulfate [Proair Hfa] 1 puff INHALATION RT-Q6H PRN 11/09/21 07/31/23 Cholecalciferol [Vitamin D3 (25 50 mcg PO DAILY 07/31/23 07/31/23 Mcg = 1000 Iu)] Metoprolol Tartrate [Lopressor] 50 mg PO BID 07/31/23 07/31/23 Omeprazole 20 mg PO DAILY 07/31/23 07/31/23 Previous Rx's Medication Instructions Recorded Apixaban [Eliquis] 2.5 mg PO BID #90 tab 08/05/23 HYDROcodone/APAP 5-325MG [[place] 5] 1 - 2 each PO Q6HR PRN #32 tab 08/05/23 Sennosides-Docusate Sodium 1 tab PO BID #60 tablet 08/05/23 [Senokot-S] amLODIPine [Norvasc] 10 mg PO DAILY #60 tab 08/05/23 lisinopriL [Zestril] 10 mg PO DAILY #60 tab 08/05/23 Allergies Allergy/AdvReac Type Severity Reaction Status Date / Time No Known Allergies Allergy Verified 07/31/23 19:25 Review of Systems ROS Statement: Those systems with pertinent positive or pertinent negative responses have been documented in the HPI. ROS Other: All systems not noted in ROS Statement are negative. Past Medical History Past Medical History: Asthma, Hypertension, Pneumonia Additional Past Medical History / Comment(s): falls, ETOH-pt reports drinking 6oz to 1 pint of Vodka/day. History of Any Multi-Drug Resistant Organisms: None Reported Past Surgical History: Hernia Repair, Orthopedic Surgery Additional Past Surgical History / Comment(s): left rotator cuff repair Past Psychological History: No Psychological Hx Reported Smoking Status: Never smoker Past Alcohol Use History: None Reported Past Drug Use History: None Reported - Past Family History Father Additional Family Medical History / Comment(s): none General Exam Limitations: no limitations General appearance: alert, in no apparent distress, anxious Head exam: Present: atraumatic, normocephalic, normal inspection Eye exam: Present: normal appearance, PERRL, EOMI. Absent: scleral icterus, conjunctival injection, periorbital swelling ENT exam: Present: normal exam, mucous membranes moist Neck exam: Present: normal inspection. Absent: tenderness, meningismus, lymphadenopathy Respiratory exam: Present: normal lung sounds bilaterally. Absent: respiratory distress, wheezes, rales, rhonchi, stridor Cardiovascular Exam: Present: regular rate, normal rhythm, normal heart sounds. Absent: systolic murmur, diastolic murmur, rubs, gallop, clicks GI/Abdominal exam: Present: soft, normal bowel sounds. Absent: distended, tenderness, guarding, rebound, rigid Extremities exam: Present: tenderness, normal capillary refill. Absent: full R OM, pedal edema, joint swelling, calf tenderness Back exam: Present: normal inspection Neurological exam: Present: alert, oriented X3, CN II-XII intact Psychiatric exam: Present: normal affect, normal mood Skin exam: Present: warm, dry, intact, normal color. Absent: rash Course Vital Signs 07/31/23 07/31/23 07/31/23 15:27 16:57 17:52 Temperature 97.7 F 98.3 F 98 F Pulse Rate 138 H 64 68 Respiratory 20 18 16 Rate Blood Pressure 183/103 180/97 171/86 O2 Sat by Pulse 97 97 99 Oximetry 07/31/23 07/31/23 08/01/23 20:52 23:42 00:00 Temperature 98.1 F Pulse Rate 69 75 79 Respiratory 16 19 19 Rate Blood Pressure 162/79 167/94 160/90 O2 Sat by Pulse 96 97 97 Oximetry 08/01/23 08/01/23 08/01/23 01:00 03:00 03:30 Temperature Pulse Rate 86 67 135 H Respiratory 18 22 Rate Blood Pressure 159/86 O2 Sat by Pulse 98 97 Oximetry 08/01/23 08/01/23 08/01/23 04:00 06:52 09:00 Temperature 98.1 F Pulse Rate 90 96 68 Respiratory 17 17 18 Rate Blood Pressure 173/95 194/91 185/115 O2 Sat by Pulse 98 99 97 Oximetry 08/01/23 08/01/23 08/01/23 10:00 10:12 11:00 Temperature Pulse Rate 68 71 66 Respiratory 16 18 19 Rate Blood Pressure 201/119 201/119 O2 Sat by Pulse 97 96 98 Oximetry 08/01/23 08/01/23 08/01/23 12:00 13:00 14:00 Temperature Pulse Rate 66 67 68 Respiratory 18 16 18 Rate Blood Pressure 168/100 142/90 149/78 O2 Sat by Pulse 99 97 98 Oximetry 08/01/23 08/01/23 08/01/23 15:00 16:00 17:00 Temperature Pulse Rate 67 67 105 H Respiratory 14 19 18 Rate Blood Pressure 162/96 146/87 176/103 O2 Sat by Pulse 99 97 98 Oximetry 08/01/23 08/01/23 08/02/23 18:22 23:00 00:31 Temperature Pulse Rate 72 66 66 Respiratory 18 16 14 Rate Blood Pressure 120/68 151/92 133/82 O2 Sat by Pulse 98 95 97 Oximetry 08/02/23 08/02/23 08/02/23 02:00 04:00 08:00 Temperature Pulse Rate 66 66 92 Respiratory 16 16 16 Rate Blood Pressure 160/80 181/94 214/108 O2 Sat by Pulse 97 98 98 Oximetry - Reevaluation(s) Reevaluation #1: 07/31/23 18:11 Medical records reviewed Reevaluation #2: 07/31/23 18:11 Patient symptoms unchanged Reevaluation #3: 07/31/23 18:11 Patient informed of results and questions answered Reevaluation #4: 07/31/23 18:11 Was pt. sent in by a medical professional or institution (, PA, TRASH HAULER, urgent care, hospital, or retirement...) When possible be specific @ -no Did you speak to anyone other than the patient for history (EMS, parent, family, police, friend...)? What history was obtained from this source @ -no Did you review nursing and triage notes (agree or disagree)? Why? @ -agree Are old charts reviewed (outside hosp., previous admission, EMS record, old EKG, old radiological studies, urgent care reports/EKG's, retirement records)? Report findings @ -yes Differential Diagnosis (chest pain, altered mental status, abdominal pain women, abdominal pain men, vaginal bleeding, weakness, fever, dyspnea, syncope, headache, dizziness, GI bleed, back pain, seizure, CVA, palpatations, mental health, musculoskeletal)? @ -prior EKG interpreted by me (3pts min.). @ -yes X-rays interpreted by me (1pt min.). @ -yes positive for left hip fracture e CT interpreted by me (1pt min.). @ -no U/S interpreted by me (1pt. min.). @ -no What testing was considered but not performed or refused? (CT, X-rays, U/S, labs)? Why? @ -none What meds were considered but not given or refused? Why? @ -none Did you discuss the management of the patient with other professionals (professionals i.e. , PA, TRASH HAULER, lab, RT, psych nurse, social sciences lecturer, bark scaler, teacher, preventive medicine officer, casework supervisor)? Give summary @ -no Was smoking cessation discussed for >3mins.? @ -no Was critical care preformed (if so, how long)? @ -no Were there social determinants of health that impacted care today? How? (Homelessness, low income, unemployed, alcoholism, drug addiction, transportation, low edu. Level, literacy, decrease access to med. care, usp, rehab)? @ -none Was there de-escalation of care discussed even if they declined (Discuss DNR or withdrawal of care, Hospice)? DNR status @ -no What co-morbidities impacted this encounter? (DM, HTN, Smoking, COPD, CAD, Cancer, CVA, ARF, Chemo, Hep., AIDS, mental health diagnosis, sleep apnea, morbid obesity)? @ -none Was patient admitted / discharged? Hospital course, mention meds given and route, prescriptions, significant lab abnormalities, going to OR and other pertinent info. @ - 83 male to the ER for evaluation today. Patient was today for evaluation of fall with left hip fracture. Patient be admitted for orthopedic evaluation and treatment Admitted e Undiagnosed new problem with uncertain prognosis? @ -no Drug Therapy requiring intensive monitoring for toxicity (Heparin, Nitro, Insulin, Cardizem)? @ -no Were any procedures done? @ -no Diagnosis/symptom? @ -Fall left hip fracture Acute, or Chronic, or Acute on Chronic? @ -Acute Uncomplicated (without systemic symptoms) or Complicated (systemic symptoms)? @ -Complicated Side effects of treatment? @ -no Exacerbation, Progression, or Severe Exacerbation? @ -exacerbation Poses a threat to life or bodily function? How? (Chest pain, [place], FL, pneumonia, PE, COPD, DKA, ARF, appy, cholecystitis, CVA, Diverticulitis, Homicidal, Suicidal, threat to staff... and all critical care pts) @ -yes fall with extremes of age and fracture Reevaluation #5: 07/31/23 18:11 Differential Weakness: Hypoglycemia, shock, sepsis, hyponatremia, anemia, infection, FL, ETOH, adverse medicine reaction, overdose, stroke, this is not meant to be an all-inclusive list. - Consultations Consultation #1: Spoke with orthopedics Dr. Ross who agreed to admit this patient Medical Decision Making - Medical Decision Making 83 male to the ER for evaluation today. Patient was today for evaluation of fall with left hip fracture. Patient be admitted for orthopedic evaluation and treatment - Lab Data Result diagrams: 08/05/23 05:30 08/05/23 05:30 Lab Results 07/31/23 07/31/23 07/31/23 Range/Units 15:46 15:46 15:46 WBC 15.2 H (3.8-10.6) k/uL RBC 4.61 (4.30-5.90) m/uL Hgb 13.8 (13.0-17.5) gm/dL Hct 40.4 (39.0-53.0) % MCV 87.5 (80.0-100.0) fL MCH 30.0 (25.0-35.0) pg MCHC 34.3 (31.0-37.0) g/dL RDW 13.9 (11.5-15.5) % Plt Count 151 (150-450) k/uL MPV 9.8 Neutrophils % 90 % Lymphocytes % 4 % Monocytes % 4 % Eosinophils % 1 % Basophils % 0 % Neutrophils # 13.7 H (1.3-7.7) k/uL Lymphocytes # 0.6 L (1.0-4.8) k/uL Monocytes # 0.7 (0-1.0) k/uL Eosinophils # 0.1 (0-0.7) k/uL Basophils # 0.0 (0-0.2) k/uL PT 11.4 (10.0-12.5) sec INR 1.0 (<1.2) APTT 25.7 (22.0-30.0) sec Sodium 135 L (137-145) mmol/L Potassium 4.3 (3.5-5.1) mmol/L Chloride 105 (98-107) mmol/L Carbon Dioxide 23 (22-30) mmol/L Anion Gap 7 mmol/L BUN 38 H (9-20) mg/dL Creatinine 1.94 H (0.66-1.25) mg/dL Est GFR (CKD-EPI)AfAm 37 (>60 ml/min/1.73 sqM) Est GFR (CKD-EPI)NonAf 32 (>60 ml/min/1.73 sqM) Glucose 113 H (74-99) mg/dL Plasma Lactic Acid [place] (0.7-2.0) mmol/L Calcium 8.8 (8.4-10.2) mg/dL Phosphorus 3.2 (2.5-4.5) mg/dL Magnesium 1.9 (1.6-2.3) mg/dL Total Bilirubin 0.7 (0.2-1.3) mg/dL AST 25 (17-59) U/L ALT 13 (4-49) U/L Alkaline Phosphatase 67 (38-126) U/L Troponin I (0.000-0.034) ng/mL NT-Pro-B Natriuret Pep 44416 pg/mL Total Protein 6.3 (6.3-8.2) g/dL Albumin 3.3 L (3.5-5.0) g/dL Urine Color Urine Appearance (Clear) Urine pH (5.0-8.0) Ur Specific [place] (1.001-1.035) Urine Protein (Negative) Urine Glucose (UA) (Negative) Urine Ketones (Negative) Urine Blood (Negative) Urine Nitrite (Negative) Urine Bilirubin (Negative) Urine Urobilinogen (<2.0) mg/dL Ur Leukocyte Esterase (Negative) Urine RBC (0-5) /hpf Urine WBC (0-5) /hpf Ur Squamous Epith Cells (0-4) /hpf Urine Bacteria (None) /hpf Hyaline Casts (0-2) /lpf Granular Casts (0) /lpf Urine Mucus (None) /hpf Serum Alcohol <10 mg/dL 07/31/23 07/31/23 07/31/23 Range/Units 15:46 15:46 15:46 WBC (3.8-10.6) k/uL RBC (4.30-5.90) m/uL Hgb (13.0-17.5) gm/dL Hct (39.0-53.0) % MCV (80.0-100.0) fL MCH (25.0-35.0) pg MCHC (31.0-37.0) g/dL RDW (11.5-15.5) % Plt Count (150-450) k/uL MPV Neutrophils % % Lymphocytes % % Monocytes % % Eosinophils % % Basophils % % Neutrophils # (1.3-7.7) k/uL Lymphocytes # (1.0-4.8) k/uL Monocytes # (0-1.0) k/uL Eosinophils # (0-0.7) k/uL Basophils # (0-0.2) k/uL PT (10.0-12.5) sec INR (<1.2) APTT (22.0-30.0) sec Sodium (137-145) mmol/L Potassium (3.5-5.1) mmol/L Chloride (98-107) mmol/L Carbon Dioxide (22-30) mmol/L Anion Gap mmol/L BUN (9-20) mg/dL Creatinine (0.66-1.25) mg/dL Est GFR (CKD-EPI)AfAm (>60 ml/min/1.73 sqM) Est GFR (CKD-EPI)NonAf (>60 ml/min/1.73 sqM) Glucose (74-99) mg/dL Plasma Lactic Acid Herbert 1.3 (0.7-2.0) mmol/L Calcium (8.4-10.2) mg/dL Phosphorus (2.5-4.5) mg/dL Magnesium (1.6-2.3) mg/dL Total Bilirubin (0.2-1.3) mg/dL AST (17-59) U/L ALT (4-49) U/L Alkaline Phosphatase (38-126) U/L Troponin I 0.086 H* (0.000-0.034) ng/mL NT-Pro-B Natriuret Pep pg/mL Total Protein (6.3-8.2) g/dL Albumin (3.5-5.0) g/dL Urine Color Light Yellow Urine Appearance Cloudy (Clear) Urine pH 6.0 (5.0-8.0) Ur Specific [place] 1.018 (1.001-1.035) Urine Protein 3+ H (Negative) Urine Glucose (UA) Negative (Negative) Urine Ketones Negative (Negative) Urine Blood Large H (Negative) Urine Nitrite Negative (Negative) Urine Bilirubin Negative (Negative) Urine Urobilinogen <2.0 (<2.0) mg/dL Ur Leukocyte Esterase Negative (Negative) Urine RBC 24 H (0-5) /hpf Urine WBC 10 H (0-5) /hpf Ur Squamous Epith Cells <1 (0-4) /hpf Urine Bacteria Rare H (None) /hpf Hyaline Casts 1 (0-2) /lpf Granular Casts 4 (0) /lpf Urine Mucus Rare H (None) /hpf Serum Alcohol mg/dL - EKG Data -: EKG Interpreted by Me - Radiology Data Radiology results: report reviewed (Chest x-ray and left hip x-rays positive for fracture), image reviewed Disposition Clinical Impression: Fall, Weakness, Closed left hip fracture Disposition: ADMITTED IP TO THIS [facility] Condition: Fair
[2023-07-31 16:14] LABS: Basophils % (A) 0 %; Eosinophils # (A) 0.1 k/uL (0-0.7); Eosinophils % (A) 1 %; HCT 40.4 % (39.0-53.0); HGB 13.8 gm/dL (13.0-17.5); Lymphocytes # (A) 0.6 k/uL (1.0-4.8); Lymphocytes % (A) 4 %; MCHC 34.3 g/dL (31.0-37.0); MCV 87.5 fL (80.0-100.0); Mean Platelet Volume 9.8; Monocytes # (A) 0.7 k/uL (0-1.0); Monocytes % (A) 4 %; Neutrophils # (A) 13.7 k/uL (1.3-7.7); Neutrophils % (A) 90 %; Platelet Count 151 k/uL (150-450); RBC 4.61 m/uL (4.30-5.90); RDW 13.9 % (11.5-15.5); WBC 15.2 k/uL (3.8-10.6)
[2023-07-31 16:29] LABS: ALT 13 U/L (4-49); AST 25 U/L (17-59); African American GFR (CKD) 37 (>60 ml/min/1.73 sqM); Albumin 3.3 g/dL (3.5-5.0); Alcohol <10 mg/dL; Alkaline Phosphatase 67 U/L (38-126); Anion Gap 7 mmol/L; Blood Urea Nitrogen 38 mg/dL (9-20); Calcium 8.8 mg/dL (8.4-10.2); Carbon Dioxide 23 mmol/L (22-30); Chloride 105 mmol/L (98-107); Glucose 113 mg/dL (74-99); Magnesium 1.9 mg/dL (1.6-2.3); Non-African American GFR(CKD) 32 (>60 ml/min/1.73 sqM); Phosphorus 3.2 mg/dL (2.5-4.5); Potassium 4.3 mmol/L (3.5-5.1); Sodium 135 mmol/L (137-145); Total Bilirubin 0.7 mg/dL (0.2-1.3); Total Protein 6.3 g/dL (6.3-8.2)
[2023-07-31 16:32] LABS: Partial Thromboplastin Time 25.7 sec (22.0-30.0); Prothrombin Time 11.4 sec (10.0-12.5)
[2023-07-31 16:38] LABS: NT-Pro-B-Type Natriuretic Pept 12900 pg/mL
--- NOTE | 2023-07-31 17:02 | XR ---
EXAMINATION TYPE: XR Hip LT and AP Pelvis DATE OF EXAM: 07/31/2023 4:27 PM CLINICAL INDICATION:Male, 83 years old with history of fall; [facility] COMPARISON: None. TECHNIQUE: XR Hip LT and AP Pelvis; hip was examined in the frontal and lateral projections and a AP pelvis. FINDINGS/IMPRESSION: Acute left proximal femoral neck fracture with varus deformity.
--- NOTE | 2023-07-31 17:03 | XR ---
EXAMINATION TYPE: XR chest 1V DATE OF EXAM: 07/31/2023 4:27 PM CLINICAL INDICATION:Male, 83 years old with history of pre surg; [facility] COMPARISON: Chest radiographs from 11/09/2021 TECHNIQUE: XR chest 1V Frontal view of the chest. FINDINGS: Lungs/Pleura: There is no evidence of pleural effusion, focal consolidation, or pneumothorax. Pulmonary vascularity: Unremarkable. Heart/mediastinum: Cardiomediastinal silhouette is unremarkable. Musculoskeletal: No acute osseous pathology. IMPRESSION: No acute cardiopulmonary disease/process.
[2023-07-31 17:23] LABS: Appearance,Urine Cloudy (Clear); Bacteria,Urine Rare /hpf; Bilirubin,Urine Negative (Negative); Blood,Urine Large (Negative); Color,Urine Light Yellow; Glucose,Urine (UA) Negative (Negative); Granular Casts,Urine 4 /lpf (0); Hyaline Casts,Urine 1 /lpf (0-2); Ketones,Urine Negative (Negative); Leukocyte Esterase,Urine Negative (Negative); Mucus,Urine Rare /hpf; Nitrite,Urine Negative (Negative); Protein,Urine 3+ (Negative); RBC,Urine 24 /hpf (0-5); Specific Gravity,Urine 1.018 (1.001-1.035); Squamous Epithelial Cell,Urine <1 /hpf (0-4); Urobilinogen,Urine <2.0 mg/dL (<2.0); WBC,Urine 10 /hpf (0-5)
[2023-07-31] MEDS ORDERED: ONDANSETRON 4 MG/2 ML VIAL IVP PRN (18:04)
[2023-07-31] MEDS ORDERED: NALOXONE 0.4 MG/ML 1 ML VIAL IV PRN (18:04)
[2023-07-31] MEDS: SODIUM CHLORIDE 0.9% 1,000 ML IV SCH (18:22)
[2023-08-01] MEDS: HYDROmorphone 1 MG/ML 1 ML SYRINGE IVP PRN (06:49)
[2023-08-01 07:00] LABS: Basophils % (A) 0 %; Eosinophils # (A) 0.3 k/uL (0-0.7); Eosinophils % (A) 3 %; HCT 37.1 % (39.0-53.0); HGB 12.4 gm/dL (13.0-17.5); Lymphocytes # (A) 0.7 k/uL (1.0-4.8); Lymphocytes % (A) 7 %; MCH 29.8 pg (25.0-35.0); MCHC 33.5 g/dL (31.0-37.0); MCV 89.1 fL (80.0-100.0); Mean Platelet Volume 9.4; Monocytes # (A) 0.5 k/uL (0-1.0); Monocytes % (A) 5 %; Neutrophils # (A) 8.8 k/uL (1.3-7.7); Neutrophils % (A) 84 %; Platelet Count 129 k/uL (150-450); RBC 4.16 m/uL (4.30-5.90); RDW 14.2 % (11.5-15.5); WBC 10.6 k/uL (3.8-10.6)
[2023-08-01 07:31] LABS: ALT 11 U/L (4-49); AST 22 U/L (17-59); African American GFR (CKD) 41 (>60 ml/min/1.73 sqM); Albumin 2.9 g/dL (3.5-5.0); Alkaline Phosphatase 63 U/L (38-126); Anion Gap 4 mmol/L; Blood Urea Nitrogen 36 mg/dL (9-20); Calcium 7.9 mg/dL (8.4-10.2); Carbon Dioxide 24 mmol/L (22-30); Chloride 107 mmol/L (98-107); Glucose 96 mg/dL (74-99); Magnesium 1.8 mg/dL (1.6-2.3); Non-African American GFR(CKD) 35 (>60 ml/min/1.73 sqM); Phosphorus 2.8 mg/dL (2.5-4.5); Potassium 4.3 mmol/L (3.5-5.1); Sodium 135 mmol/L (137-145); Total Bilirubin 0.7 mg/dL (0.2-1.3); Total Protein 5.7 g/dL (6.3-8.2)
[2023-08-01] MEDS ORDERED: ALBUTEROL NEBULIZED 2.5 MG/3 ML INHALATION PRN (08:25)
[2023-08-01] MEDS: PANTOPRAZOLE 40 MG TABLET PO SCH (09:13)
[2023-08-01] MEDS: METOPROLOL TARTRATE 50 MG TAB PO SCH (09:13)
--- NOTE | 2023-08-01 09:48 | P.HPOR ---
History of Present Illness H&P Date: 08/01/23 Chief Complaint: Left hip injury s/p fall The patient is an 83 y/o male who presented to the emergency department at [facility] after sustaining a fall at home. He states he was getting milk out of the refrigerator and lost his balance and sat down on his kitchen fl oor. He had immediate pain and weakness in the left leg. Upon x-rays in the ER, there was found to have a displaced femoral neck fracture and he was admitted for further orthopedic care and treatment. Internal medicine has seen the patient and cardiology has been consulted for surgical clearance. The patient does live alone. He states he has been sick lately and his balance has been off. Review of Systems Constitutional: Denies chills, Denies fatigue, Denies fever Cardiovascular: Denies chest pain, Denies shortness of breath Respiratory: Denies cough Gastrointestinal: Denies diarrhea, Denies nausea, Denies vomiting Musculoskeletal: left: hip pain, hip stiffness, hip swelling Past Medical History Past Medical History: Asthma, Hypertension, Pneumonia Additional Past Medical History / Comment(s): falls, ETOH-pt reports drinking 6oz to 1 pint of Vodka/day. History of Any Multi-Drug Resistant Organisms: None Reported Past Surgical History: Hernia Repair, Orthopedic Surgery Additional Past Surgical History / Comment(s): left rotator cuff repair Past Psychological History: No Psychological Hx Reported Smoking Status: Never smoker Past Alcohol Use History: None Reported Past Drug Use History: None Reported - Past Family History Father Additional Family Medical History / Comment(s): none Medications and Allergies Home Medications Medication Instructions Recorded Confirmed Type Albuterol Sulfate [Proair Hfa] 1 puff INHALATION RT-Q6H PRN 11/09/21 07/31/23 History Cholecalciferol [Vitamin D3 (25 50 mcg PO DAILY 07/31/23 07/31/23 History Mcg = 1000 Iu)] Metoprolol Tartrate [Lopressor] 50 mg PO BID 07/31/23 07/31/23 History Omeprazole 20 mg PO DAILY 07/31/23 07/31/23 History Allergies Allergy/AdvReac Type Severity Reaction Status Date / Time No Known Allergies Allergy Verified 07/31/23 19:25 Physical Examination The patient is an 83 year-old male in no acute distress. He is alert and oriented 3. The patient's head is normocephalic, atraumatic. No pain upon palpation to the cervical spine, no step-offs noted. Exam of the bilateral upper extremities reveal no obvious deformities or wounds. Exam of the right lower extremity reveals no deformity or wounds. No pain upon range of motion of the right leg. Exam of the left lower extremity reveals severe guarding to the left hip with shortening of the leg. There is pain to palpation to the lateral hip. There is pain to external and internal rotation of the left hip. Calf is soft and nontender. He is able to wiggle his toes. Circulatory status is intact. Results X-ray of the left hip and pelvis reveals a displaced femoral neck fracture. - Labs Labs: Abnormal Lab Results - Last 24 Hours (Table) 07/31/23 07/31/23 07/31/23 Range/Units 15:46 15:46 15:46 WBC 15.2 H (3.8-10.6) k/uL RBC (4.30-5.90) m/uL Hgb (13.0-17.5) gm/dL Hct (39.0-53.0) % Plt Count (150-450) k/uL Neutrophils # 13.7 H (1.3-7.7) k/uL Lymphocytes # 0.6 L (1.0-4.8) k/uL Sodium 135 L (137-145) mmol/L BUN 38 H (9-20) mg/dL Creatinine 1.94 H (0.66-1.25) mg/dL Glucose 113 H (74-99) mg/dL Calcium (8.4-10.2) mg/dL Troponin I 0.086 H* (0.000-0.034) ng/mL Total Protein (6.3-8.2) g/dL Albumin 3.3 L (3.5-5.0) g/dL Urine Protein (Negative) Urine Blood (Negative) Urine RBC (0-5) /hpf Urine WBC (0-5) /hpf Urine Bacteria (None) /hpf Urine Mucus (None) /hpf 07/31/23 07/31/23 08/01/23 Range/Units 15:46 22:25 06:02 WBC (3.8-10.6) k/uL RBC (4.30-5.90) m/uL Hgb (13.0-17.5) gm/dL Hct (39.0-53.0) % Plt Count (150-450) k/uL Neutrophils # (1.3-7.7) k/uL Lymphocytes # (1.0-4.8) k/uL Sodium (137-145) mmol/L BUN (9-20) mg/dL Creatinine (0.66-1.25) mg/dL Glucose (74-99) mg/dL Calcium (8.4-10.2) mg/dL Troponin I 0.072 H* 0.060 H* (0.000-0.034) ng/mL Total Protein (6.3-8.2) g/dL Albumin (3.5-5.0) g/dL Urine Protein 3+ H (Negative) Urine Blood Large H (Negative) Urine RBC 24 H (0-5) /hpf Urine WBC 10 H (0-5) /hpf Urine Bacteria Rare H (None) /hpf Urine Mucus Rare H (None) /hpf 08/01/23 08/01/23 Range/Units 06:35 06:35 WBC (3.8-10.6) k/uL RBC 4.16 L (4.30-5.90) m/uL Hgb 12.4 L (13.0-17.5) gm/dL Hct 37.1 L (39.0-53.0) % Plt Count 129 L (150-450) k/uL Neutrophils # 8.8 H (1.3-7.7) k/uL Lymphocytes # 0.7 L (1.0-4.8) k/uL Sodium 135 L (137-145) mmol/L BUN 36 H (9-20) mg/dL Creatinine 1.77 H (0.66-1.25) mg/dL Glucose (74-99) mg/dL Calcium 7.9 L (8.4-10.2) mg/dL Troponin I (0.000-0.034) ng/mL Total Protein 5.7 L (6.3-8.2) g/dL Albumin 2.9 L (3.5-5.0) g/dL Urine Protein (Negative) Urine Blood (Negative) Urine RBC (0-5) /hpf Urine WBC (0-5) /hpf Urine Bacteria (None) /hpf Urine Mucus (None) /hpf H & H 07/31/23 08/01/23 Range/Units 15:46 06:35 Hgb 13.8 12.4 L (13.0-17.5) gm/dL Hct 40.4 37.1 L (39.0-53.0) % Coagulation 07/31/23 Range/Units 15:46 INR 1.0 (<1.2) Result Diagrams: 08/01/23 06:35 08/01/23 06:35 Assessment and Plan (1) Closed left hip fracture Current Visit: Yes Status: Acute Code(s): S72.002A - FRACTURE OF UNSP PART OF NECK OF LEFT FEMUR, INIT SNOMED Code(s): 148549105 (2) Fall Current Visit: Yes Status: Acute Code(s): W19.XXXA - UNSPECIFIED FALL, INITIAL ENCOUNTER SNOMED Code(s): 7943919 (3) Weakness Current Visit: Yes Status: Acute Code(s): R53.1 - WEAKNESS SNOMED Code(s): 19165678 (4) Hypertension Current Visit: Yes Status: Acute Code(s): I10 - ESSENTIAL (PRIMARY) HYPERTENSION SNOMED Code(s): 71194932 Plan: The clinical and x-ray findings were discussed with the patient. The case was discussed with Dr. Ross. Treatment options were discussed and surgical intervention is recommended. We discussed the surgical plan as well as the expected postoperative course. Risks and benefits were reviewed including (but not limited to) the risks of infection, bleeding, blood clots, delayed or nonunion, anesthesia-related complications and possible need for additional surgery. Questions were invited and answered. The patient expressed understanding and wishes to proceed with surgery. The patient will be kept on bedrest. Continue PRN pain management. NPO at midnight. He is scheduled for a left hip hemiarthroplasty tomorrow afternoon. We will await pre-op clearance fr internal medicine and cardiology.
--- NOTE | 2023-08-01 10:50 | P.CONS ---
History of Present Illness - Reason for Consult Consult date: 08/01/23 - History of Present Illness Patient is a 83-year-old male with history of Dooley's esophagus, asthma, hypertension, debility presenting with fall and left hip pain. He claims that he lives in a mobile home, able to ambulate using some devices, he was trying to go to his refrigerator to get some milk, when he had lightheadedness and suffered a fall. He subsequently had significant left hip pain and was unable to ambulate, called EMS and was sent to the hospital. He claims that he has been having these episodes of dizziness. He denies any chest pain, shortness of breath, abdominal pain, nausea, vomiting, urinary or bowel complaints. He is able to ambulate far distances without having any significant chest pain or shortness of breath. He denies any smoking, alcohol use or illicit drug use. In the ED, temperature was 97.7, pulse 138, respiratory rate 20, blood pressure 183/103, saturating at 97% on room air. Initial WBC 15.2, sodium 135, BUN 38, creatinine 1.94, close to his baseline, troponin elevated at 0.086, proBNP 1300, urinalysis negative for nitrites and leukocyte esterase, serum alcohol level was negative. Pelvic x-ray showed left acute proximal femoral neck fracture with varus deformity. Chest x-ray independently interpreted, shows no opacities. EKG independently interpreted, shows sinus tachycardia with multiple PACs. Pertinent positives and negatives as discussed in HPI, a complete review of systems was performed and all other systems are negative. Patient seen and examined at bedside. Vital signs reviewed General: nontoxic, no distress, appears at stated age Derm: warm, dry Head: atraumatic, normocephalic, symmetric Eyes: EOMI, no lid lag, anicteric sclera, pupils equal round reactive to light ENT: Nose and ears atraumatic Neck: No thyromegaly, supple Mouth: no lip lesion, mucus membranes moist Cardiovascular: S1S2 reg, no murmur, no edema Lungs: clear to auscultation bilateral, no rhonchi, no rales, no wheeze, no accessory muscle use Abdominal: soft, nontender to palpation, no guarding, no appreciable organomegaly Ext: Left lower extremity externally rotated Neuro: CN II-XII grossly intact Psych: Alert, oriented, appropriate affect Assessment/Plan: Active: Acute left proximal femoral neck fracture Presyncope NSTEMI, likely nonischemic Chronic kidney disease stage III Sinus tachycardia, likely secondary to pain Uncontrolled hypertension, likely secondary to pain -Per NSQIP risk calculator, patient has above average 17.3% risk of serious complication, 15.4% risk of any complication, 1.8% risk of cardiac complication, 3.3% risk of , 73.5% risk of discharge to nursing or rehab facility. -On telemetry -Echocardiogram pending -Cardiology consulted for cardiac optimization -Pain control with oral Tylenol as needed, Aldrich as needed, IV Dilaudid as needed, monitor for sedation -Given one-time dose of IV labetalol 20 mg -Started on amlodipine 5 mg daily, first dose tomorrow Resolved: Leukocytosis Chronic: GERD Thank you for allowing us to participate in the care of this pleasant patient. Do not hesitate to contact us with questions. Someone can be reached from the [facility] hospitalist group all hours of the day at [phone] or via [employer]. Past Medical History Past Medical History: Asthma, Hypertension, Pneumonia Additional Past Medical History / Comment(s): falls, ETOH-pt reports drinking 6oz to 1 pint of Vodka/day. History of Any Multi-Drug Resistant Organisms: None Reported Past Surgical History: Hernia Repair, Orthopedic Surgery Additional Past Surgical History / Comment(s): left rotator cuff repair Past Psychological History: No Psychological Hx Reported Smoking Status: Never smoker Past Alcohol Use History: None Reported Past Drug Use History: None Reported - Past Family History Father Additional Family Medical History / Comment(s): none Medications and Allergies Home Medications Medication Instructions Recorded Confirmed Type Albuterol Sulfate [Proair Hfa] 1 puff INHALATION RT-Q6H PRN 11/09/21 07/31/23 History Cholecalciferol [Vitamin D3 (25 50 mcg PO DAILY 07/31/23 07/31/23 History Mcg = 1000 Iu)] Metoprolol Tartrate [Lopressor] 50 mg PO BID 07/31/23 07/31/23 History Omeprazole 20 mg PO DAILY 07/31/23 07/31/23 History Allergies Allergy/AdvReac Type Severity Reaction Status Date / Time No Known Allergies Allergy Verified 07/31/23 19:25 Physical Exam Vitals: Vital Signs Temp Pulse Resp BP Pulse Ox 08/01/23 06:52 96 17 194/91 99 08/01/23 04:00 98.1 F 90 17 173/95 98 08/01/23 03:30 135 H 08/01/23 03:00 67 22 159/86 97 08/01/23 01:00 86 18 98 08/01/23 00:00 79 19 160/90 97 07/31/23 23:42 75 19 167/94 97 07/31/23 20:52 98.1 F 69 16 162/79 96 07/31/23 17:52 98 F 68 16 171/86 99 07/31/23 16:57 98.3 F 64 18 180/97 97 07/31/23 15:27 97.7 F 138 H 20 183/103 97 Intake and Output 07/31/23 08/01/23 08/01/23 22:59 06:59 14:59 Other: Weight 67.585 kg Results CBC & Chem 7: 08/01/23 06:35 08/01/23 06:35 Labs: Abnormal Lab Results - Last 24 Hours (Table) 07/31/23 07/31/23 07/31/23 Range/Units 15:46 15:46 15:46 WBC 15.2 H (3.8-10.6) k/uL RBC (4.30-5.90) m/uL Hgb (13.0-17.5) gm/dL Hct (39.0-53.0) % Plt Count (150-450) k/uL Neutrophils # 13.7 H (1.3-7.7) k/uL Lymphocytes # 0.6 L (1.0-4.8) k/uL Sodium 135 L (137-145) mmol/L BUN 38 H (9-20) mg/dL Creatinine 1.94 H (0.66-1.25) mg/dL Glucose 113 H (74-99) mg/dL Calcium (8.4-10.2) mg/dL Troponin I 0.086 H* (0.000-0.034) ng/mL Total Protein (6.3-8.2) g/dL Albumin 3.3 L (3.5-5.0) g/dL Urine Protein (Negative) Urine Blood (Negative) Urine RBC (0-5) /hpf Urine WBC (0-5) /hpf Urine Bacteria (None) /hpf Urine Mucus (None) /hpf 07/31/23 07/31/23 08/01/23 Range/Units 15:46 22:25 06:02 WBC (3.8-10.6) k/uL RBC (4.30-5.90) m/uL Hgb (13.0-17.5) gm/dL Hct (39.0-53.0) % Plt Count (150-450) k/uL Neutrophils # (1.3-7.7) k/uL Lymphocytes # (1.0-4.8) k/uL Sodium (137-145) mmol/L BUN (9-20) mg/dL Creatinine (0.66-1.25) mg/dL Glucose (74-99) mg/dL Calcium (8.4-10.2) mg/dL Troponin I 0.072 H* 0.060 H* (0.000-0.034) ng/mL Total Protein (6.3-8.2) g/dL Albumin (3.5-5.0) g/dL Urine Protein 3+ H (Negative) Urine Blood Large H (Negative) Urine RBC 24 H (0-5) /hpf Urine WBC 10 H (0-5) /hpf Urine Bacteria Rare H (None) /hpf Urine Mucus Rare H (None) /hpf 08/01/23 08/01/23 Range/Units 06:35 06:35 WBC (3.8-10.6) k/uL RBC 4.16 L (4.30-5.90) m/uL Hgb 12.4 L (13.0-17.5) gm/dL Hct 37.1 L (39.0-53.0) % Plt Count 129 L (150-450) k/uL Neutrophils # 8.8 H (1.3-7.7) k/uL Lymphocytes # 0.7 L (1.0-4.8) k/uL Sodium 135 L (137-145) mmol/L BUN 36 H (9-20) mg/dL Creatinine 1.77 H (0.66-1.25) mg/dL Glucose (74-99) mg/dL Calcium 7.9 L (8.4-10.2) mg/dL Troponin I (0.000-0.034) ng/mL Total Protein 5.7 L (6.3-8.2) g/dL Albumin 2.9 L (3.5-5.0) g/dL Urine Protein (Negative) Urine Blood (Negative) Urine RBC (0-5) /hpf Urine WBC (0-5) /hpf Urine Bacteria (None) /hpf Urine Mucus (None) /hpf
[2023-08-01] MEDS: LABETALOL 5 MG/ML VIAL MDV IVP STA (11:18)
[2023-08-02 06:52] LABS: Basophils % (A) 0 %; Eosinophils # (A) 0.4 k/uL (0-0.7); Eosinophils % (A) 4 %; HCT 39.2 % (39.0-53.0); HGB 12.8 gm/dL (13.0-17.5); Lymphocytes # (A) 0.7 k/uL (1.0-4.8); Lymphocytes % (A) 8 %; MCH 29.6 pg (25.0-35.0); MCHC 32.6 g/dL (31.0-37.0); MCV 90.7 fL (80.0-100.0); Mean Platelet Volume 9.8; Monocytes # (A) 0.5 k/uL (0-1.0); Monocytes % (A) 5 %; Neutrophils # (A) 7.7 k/uL (1.3-7.7); Neutrophils % (A) 81 %; Platelet Count 141 k/uL (150-450); RBC 4.33 m/uL (4.30-5.90); RDW 14.1 % (11.5-15.5); WBC 9.5 k/uL (3.8-10.6)
[2023-08-02 07:03] LABS: African American GFR (CKD) 44 (>60 ml/min/1.73 sqM); Anion Gap 6 mmol/L; Blood Urea Nitrogen 36 mg/dL (9-20); Calcium 7.9 mg/dL (8.4-10.2); Carbon Dioxide 20 mmol/L (22-30); Chloride 110 mmol/L (98-107); Glucose 102 mg/dL (74-99); Non-African American GFR(CKD) 38 (>60 ml/min/1.73 sqM); Potassium 4.6 mmol/L (3.5-5.1); Sodium 136 mmol/L (137-145)
[2023-08-02] MEDS: HYDROcodone/APAP 5-325MG 1 EACH TAB PO PRN (09:07)
[2023-08-02] MEDS: amLODIPine 5 MG TAB PO SCH (09:08)
--- NOTE | 2023-08-02 10:42 | CA ---
Transthoracic Echo Report Name: Jg Morrison Age: 83 Gender: M : 1940 Exam Date: 08/01/2023 14:52 Exam Location: [place] Ht (in): 70 Wt (lb): 149 Ordering Physician: Francisco Javier Best MD Attending/Referring Phys: Boiler Assistant Operator Tomi Nash RD Procedure CPT: Indications: elevated trop Cardiac Hx: Technical Quality: Very technically difficult study Contrast 1: Total Dose (mL): Contrast 2: Total Dose (mL): MEASUREMENTS (Male / Female) Normal Values 2D ECHO LV Diastolic Diameter PLAX 4.4 cm 4.2 - 5.9 / 3.9 - 5.3 cm LV Systolic Diameter PLAX 3.1 cm IVS Diastolic Thickness 1.2 cm 0.6 - 1.0 / 0.6 - 0.9 cm LVPW Diastolic Thickness 1.2 cm 0.6 - 1.0 / 0.6 - 0.9 cm LV Relative Wall Thickness 0.5 LVOT Diameter 2.3 cm Aortic Root Diameter 3.2 cm LA Systolic Diameter LX 1.9 cm 3.0 - 4.0 / 2.7 - 3.8 cm DOPPLER AV Peak Velocity 81.6 cm/s AV Peak Gradient 2.7 mmHg MV Peak Velocity 77.7 cm/s MV Peak Gradient 2.4 mmHg MV Mean Velocity 36.0 cm/s MV Mean Gradient 0.6 mmHg MV Velocity Time Integral 19.0 cm Mitral E Point Velocity 68.3 cm/s Mitral A Point Velocity 36.0 cm/s Mitral E to A Ratio 1.9 MV Deceleration Time 165.7 ms TR Peak Velocity 315.3 cm/s TR Peak Gradient 39.8 mmHg Right Ventricular Systolic Press 44.8 mmHg FINDINGS Left Ventricle Normal LV size. Mild concentric LVH. Left ventricular ejection fraction is estimated at 50-55 %. Right Ventricle Normal right ventricular size. RVSP= 45mmHg. Right Atrium Severe RA dilatation Left Atrium Severe LV dilatation Mitral Valve Mitral valve not well visualized. Mild MR. Aortic Valve Aortic valve not well visualized. No aortic stenosis. No aortic regurgitation. Tricuspid Valve Tricuspid valve not well visualized. Mild to moderate TR. Pulmonic Valve Pulmonic valve not well visualized. Pericardium No pericardial effusion Aorta CONCLUSIONS Very technically difficult study, with limited views LVEF estimated at 50-55%. Wall motion abnormality cannot be commented upon Severe biatrial dilatation RVSP estimated at 45 mmHg No pericardial effusion Previewed by: Dr Joel Aguilar (Electronically Signed) Final Date: 02 August 2023 10:41
[2023-08-02] MEDS: LACTATED RINGERS 1,000 ML IV ONE ×2 (13:05→15:12)
--- NOTE | 2023-08-02 13:13 | P.CRDCN ---
History of Present Illness Consult date: 08/02/23 Reason for Consult (text): Elevated troponins, hemiarthroplasty History of present illness: History of present illness: This is an 83-year-old male with past medical history of hypertension, gastroesophageal reflux disease, daily alcohol intake. We have been asked to evaluate the patient for elevated troponins and hip hemiarthroplasty. Patient states that he was carrying a gallon of milk and lost his balance falling landing on his buttocks and had pain in the left hip. Patient has been seen by orthopedics and is planning for left hemiarthroplasty this afternoon. Patient states that the hip pain is fairly well-controlled. He denies having any chest pain, no shortness of breath. He denies having any history of TIA. No blood in the stools. He denies being told he had atrial fibrillation or atrial flutter. Patient normally follows at the [facility]. Blood pressure readings noted to be labile with high reading at this time of 182/103 and as low as 120/68. Patient has been started on amlodipine 5 mg daily continue on Lopressor. Patient received 1 dose of labetalol 20 mg IV push yesterday. EKG sinus tachycardia Chest x-ray: No acute process Echocardiogram performed 08/01/2023 revealed technically difficult study with roy ited views. EF 50 to 55%. Wall motion abnormality cannot be commented upon. Severe biatrial dilatation. RVSP estimated at 45 mmHg. No pericardial effusion. WBC 9.5 initially 15.2. Hemoglobin 12.8. Platelet count 141. Sodium 136, potassium 4.6, chloride 110, CO2 20. Troponin 0.086, 0.072 and 0.06. proBNP 12,900. BUN 36 creatinine 1.65. Urinalysis with RBCs. Serum alcohol less than 10. Home cardiac medications:Lopressor 50 mg twice daily. Review Of Systems: At the time of my exam: CONSTITUTIONAL: Denies fever or chills. HEENT: Denies blurred vision, vision changes, or eye pain. Denies hemoptysis CARDIOVASCULAR: Denies chest pain. Denies orthopnea. Denies PND. Denies palpitations RESPIRATORY: Denies shortness of breath. GASTROINTESTINAL: Denies abdominal pain. Denies nausea or vomiting. HEMATOLOGIC: Denies bleeding disorders. GENITOURINARY: Denies any blood in urine. SKIN: Denies pruitis. Denies rash. Physical examination: Gen: This is a frail-appearing 83-year-old male, no acute distress VS: reviewed HEENT: Head is atraumatic, normocephalic. Pupils equal, round. Sclerae is anicteric. NECK: Supple. No JVD. LUNGS: Clear to auscultation. No wheezes or rhonchi. No intercostal retractions. HEART: Regular rate and rhythm. No murmur. ABDOMEN: Soft No tenderness. EXTREMITIES: No pedal edema. No calf tenderness. NEUROLOGICAL: Patient is awake, alert and oriented x3. Assessment: Left hip fracture Paroxysmal atrial fibrillation/atrial flutter typical, new onset with rate control Hypertension, uncontrolled with component of pain causing labile blood pressure readings Elevated troponins most likely type II TN Chronic kidney disease/acute kidney injury Thrombocytopenia Plan: Continue current antihypertensives Monitor blood pressure closely Pain management Dr. Garcia spoke with staff regarding clearance for orthopedic surgery. Discussed need for anticoagulation following surgery. Patient appears to be in agreement. Will wait for clearance from orthopedic surgery and then start patient on Eliquis 5 mg twice daily. Further recommendations to follow based upon clinical course Thank you kindly for this consultation. Nurse practitioner note has been reviewed, I agree with documented findings and plan of care. Patient was seen and examined. Past Medical History Past Medical History: Asthma, Hypertension, Pneumonia Additional Past Medical History / Comment(s): falls, ETOH-pt reports drinking 6oz to 1 pint of Vodka/day. History of Any Multi-Drug Resistant Organisms: None Reported Past Surgical History: Hernia Repair, Orthopedic Surgery Additional Past Surgical History / Comment(s): left rotator cuff repair Past Psychological History: No Psychological Hx Reported Smoking Status: Never smoker Past Alcohol Use History: None Reported Past Drug Use History: None Reported - Past Family History Father Additional Family Medical History / Comment(s): none Medications and Allergies Home Medications Medication Instructions Recorded Confirmed Type Albuterol Sulfate [Proair Hfa] 1 puff INHALATION RT-Q6H PRN 11/09/21 07/31/23 History Cholecalciferol [Vitamin D3 (25 50 mcg PO DAILY 07/31/23 07/31/23 History Mcg = 1000 Iu)] Metoprolol Tartrate [Lopressor] 50 mg PO BID 07/31/23 07/31/23 History Omeprazole 20 mg PO DAILY 07/31/23 07/31/23 History Allergies Allergy/AdvReac Type Severity Reaction Status Date / Time No Known Allergies Allergy Verified 07/31/23 19:25 Physical Exam Vitals: Vital Signs Pulse Resp BP Pulse Ox 08/02/23 08:00 92 16 214/108 98 08/02/23 04:00 66 16 181/94 98 08/02/23 02:00 66 16 160/80 97 08/02/23 00:31 66 14 133/82 97 08/01/23 23:00 66 16 151/92 95 08/01/23 18:22 72 18 120/68 98 08/01/23 17:00 105 H 18 176/103 98 08/01/23 16:00 67 19 146/87 97 08/01/23 15:00 67 14 162/96 99 08/01/23 14:00 68 18 149/78 98 08/01/23 13:00 67 16 142/90 97 08/01/23 12:00 66 18 168/100 99 08/01/23 11:00 66 19 201/119 98 08/01/23 10:12 71 18 201/119 96 Results 08/02/23 06:23 08/02/23 06:23 CBC 08/02/23 Range/Units 06:23 WBC 9.5 (3.8-10.6) k/uL RBC 4.33 (4.30-5.90) m/uL Hgb 12.8 L (13.0-17.5) gm/dL Hct 39.2 (39.0-53.0) % Plt Count 141 L (150-450) k/uL Comprehensive Metabolic Panel 08/02/23 Range/Units 06:23 Sodium 136 L (137-145) mmol/L Potassium 4.6 (3.5-5.1) mmol/L Chloride 110 H (98-107) mmol/L Carbon Dioxide 20 L (22-30) mmol/L BUN 36 H (9-20) mg/dL Creatinine 1.65 H (0.66-1.25) mg/dL Glucose 102 H (74-99) mg/dL Calcium 7.9 L (8.4-10.2) mg/dL Current Medications Generic Name Dose Route Start Last Admin Trade Name Freq PRN Reason Stop Dose Admin Acetaminophen 650 mg 08/01/23 10:43 Acetaminophen Tab 325 Mg Tab PO Q6HR PRN Fever and/ or Pain Hydrocodone Bitart/Acetaminophen 1 each 08/01/23 10:43 08/02/23 09:07 Hydrocodone/Apap 5-325mg 1 Each Tab PO 1 each Q6HR PRN Administration Moderate to Severe Pain (4-10) Albuterol Sulfate 2.5 mg 08/01/23 08:25 Albuterol Nebulized 2.5 Mg/3 Ml INHALATION RT-Q6H PRN Shortness Of Breath Amlodipine Besylate 5 mg 08/02/23 09:00 08/02/23 09:08 Amlodipine 5 Mg Tab PO 5 mg DAILY ORTIZ Administration Hydromorphone HCl 1 mg 07/31/23 18:04 08/02/23 09:25 Hydromorphone 1 Mg/Ml 1 Ml Syringe IVP 1 mg Q3HR PRN Administration Severe Pain (Scale 7 to 10) Sodium Chloride 1,000 mls @ 75 mls/hr 07/31/23 18:15 08/02/23 09:55 Saline 0.9% IV 75 mls/hr .[id number] ORTIZ Administration Cefazolin Sodium 2 gm/ Sodium 50 mls @ 100 mls/hr 08/02/23 06:00 Chloride IVPB 08/02/23 23:00 ONCE PRN Pre-Op Protocol Metoprolol Tartrate 50 mg 08/01/23 09:00 08/02/23 09:07 Metoprolol Tartrate 50 Mg Tab PO 50 mg BID ORTIZ Administration Naloxone HCl 0.2 mg 07/31/23 18:04 Naloxone 0.4 Mg/Ml 1 Ml Vial IV Q2M PRN Opioid Reversal Ondansetron HCl 4 mg 07/31/23 18:04 Ondansetron 4 Mg/2 Ml Vial IVP Q8HR PRN Nausea And Vomiting Pantoprazole Sodium 40 mg 08/01/23 09:00 08/02/23 09:08 Pantoprazole 40 Mg Tablet PO 40 mg [id number] ORTIZ Administration 08/02/23 06:23 08/02/23 06:23
[2023-08-02] MEDS: DEXAMETHASONE SOD PHOSPHATE 4 MG/ML 1 ML VIAL IVP ONE (13:37)
[2023-08-02] MEDS: ONDANSETRON 4 MG/2 ML VIAL IVP ONE ×2 (13:37→20:06)
[2023-08-02] MEDS ORDERED: PHENYLEPHRINE 10 MG/ML VIAL ONE (13:53)
[2023-08-02] MEDS ORDERED: KETAMINE HCL IN 0.9 % NACL 50 MG/5 ML SYRINGE ONE (13:53)
[2023-08-02] MEDS ORDERED: MIDAZOLAM 2 MG/2 ML VIAL ONE (13:53)
[2023-08-02] MEDS ORDERED: PROPOFOL 10 MG/ML 20 ML VIAL IV ONE (13:53)
[2023-08-02] MEDS: IV FLUID CONTINUATION 1,000 ML IV ONE ×8 (13:58)
--- NOTE | 2023-08-02 14:54 | P.PN ---
Subjective Progress Note Date: 08/02/23 Subjective: Patient seen and examined at bedside. No acute events overnight. No new changes Pertinent positives and negatives as discussed above, a complete review of systems was performed and all other systems are negative. Vitals Signs Reviewed. General: nontoxic, no distress, appears at stated age Derm: warm, dry Head: atraumatic, normocephalic, symmetric Eyes: EOMI, no lid lag, anicteric sclera, pupils equal round reactive to light ENT: Nose and ears atraumatic Neck: No thyromegaly, supple Mouth: no lip lesion, mucus membranes moist Cardiovascular: S1S2 reg, no murmur, no edema Lungs: clear to auscultation bilateral, no rhonchi, no rales, no wheeze, no accessory muscle use Abdominal: soft, nontender to palpation, no guarding, no appreciable organomegaly Ext: Left lower extremity externally rotated Neuro: CN II-XII grossly intact Psych: Alert, oriented, appropriate affect Data Reviewed Today: Pertinent Labs: WBC 9.5, hemoglobin 12.8, platelet 141, creatinine 1.65, bicarb 20, magnesium 2.0. Imaging: EKG from yesterday afternoon independently interpreted, shows atrial flutter. Assessment and Plan: Acute left proximal femoral neck fracture Presyncope Paroxysmal atrial flutter NSTEMI, likely nonischemic Chronic kidney disease stage III Uncontrolled hypertension, labile, also likely has a component of pain -Per NSQIP risk calculator, patient has above average 17.3% risk of serious complication, 15.4% risk of any complication, 1.8% risk of cardiac complication, 3.3% risk of , 73.5% risk of discharge to nursing or rehab facility. -On telemetry -Echocardiogram showed LVEF of 50 to 55%, RVSP 45 -Cardiology consulted for cardiac optimization, recommending anticoagulation once cleared by orthopedic surgeon -Pain control with oral Tylenol as needed, [place] as needed, IV Dilaudid as needed, monitor for sedation -Given one-time dose of IV labetalol 20 mg -As needed hydralazine -Amlodipine increased to 10 mg daily Resolved: Leukocytosis Chronic: GERD Thank you for allowing us to participate in the care of this pleasant patient. Do not hesitate to contact us with questions. Someone can be reached from the [facility] hospitalist group all hours of the day at [phone] or via perfect serve. Objective - Vital Signs Vital signs: Vital Signs Temp 98.4 F 08/02/23 13:23 Pulse 67 08/02/23 13:23 Resp 18 08/02/23 13:23 BP 209/104 08/02/23 13:23 Pulse Ox 98 08/02/23 13:23 FiO2 Intake & Output 08/01/23 08/02/23 08/02/23 18:59 06:59 18:59 Intake Total 850 Balance 850 Intake: IV 850 - Labs CBC & Chem 7: 08/02/23 06:23 08/02/23 06:23 Labs: Abnormal Lab Results - Last 24 Hours (Table) 08/02/23 08/02/23 Range/Units 06:23 06:23 Hgb 12.8 L (13.0-17.5) gm/dL Plt Count 141 L (150-450) k/uL Lymphocytes # 0.7 L (1.0-4.8) k/uL Sodium 136 L (137-145) mmol/L Chloride 110 H (98-107) mmol/L Carbon Dioxide 20 L (22-30) mmol/L BUN 36 H (9-20) mg/dL Creatinine 1.65 H (0.66-1.25) mg/dL Glucose 102 H (74-99) mg/dL Calcium 7.9 L (8.4-10.2) mg/dL
--- NOTE | 2023-08-02 15:14 | P.OP ---
Date of Procedure: 08/02/23 Procedure(s) Performed: PREOPERATIVE DIAGNOSIS: Left hip femoral neck fracture POSTOPERATIVE DIAGNOSIS: Left hip femoral neck fracture OPERATION: Left hip cemented unipolar hemiarthroplasty. ANESTHESIA: Spinal ESTIMATED BLOOD LOSS: 75 ml. CLAMP REMOVER: Radha Herrera PA-C (assistance with: patient positioning, retraction, exposure, hemostasis, leg positioning, implantation, irrigation, closure, dressing) COMPLICATIONS: None apparent. COMPONENTS IMPLANTED: Bebeto LDFx cemented femoral stem; unipolar femoral head; neck extension augments as needed. INDICATIONS: Jg is an 83 year old healthy male with a history of falling and sustaining a left femoral neck fracture. I have recommended surgical treatment with a cemented unipolar hemiarthroplasty. I have discussed this procedure in detail and explained the potential risks and complications as being inclusive of, but not limited to: Bleeding, infection, scarring, discomfort, blood vessel and/or nerve damage, limb length inequality, gait disturbance, blood clot, pulmonary embolism, , and other risks. The consent form has been signed. PROCEDURE: The patient was given a regional block in preoperative holding, without complication. The patient was taken to the operating room and placed in supine position. General anesthetic was administered and after confirmation of adequate anesthesia, the patient was placed into the lateral decubitus position with the affected side up. Care was taken to make sure that all pressure points were adequately padded and a Alligator hip positioner was utilized for positioning. The hip was prepped and draped in the usual aseptic fashion using a combination of Chloraprep and alcohol. [place]oban drape was used for the case and the patient received intravenous antibiotics and IV tranexamic acid prior to the incision. The incision was created directly over the greater trochanter and carried slightly posteriorly for a posterior approach to the hip. The incision was then deepened down to subcutaneous tissue and fascia yun. Fascia yun was split in line with the incision and split proximally along the fibers of the gluteus yarely. The underlying fibers of the muscle were teased apart using finger dissection and bleeding vessels were picked up and coagulated. Retractor was then placed posteriorly consisting of a blunt Damari. The short external rotators and capsule were exposed and good visualization of the attachment of the external rotators to the femur was established. The short external rotators and capsule were released using electrocautery from their femoral attachments. A hockey stick shaped incision was created in the capsule. Joint fluid and hemarthrosis was evacuated and the patient's hip was internally rotated to expose the fracture site. The femoral neck cut was created approximately 1 cm superior to the lesser trochanter using a reciprocating saw. The femoral head and neck fragment was removed and visualization and palpation of the acetabular vault showed intact hyaline cartilage with no bone exposure or significant degeneration. Attention was then directed back to the proximal femur. Retractors were placed around the proximal femur and box osteotome was used followed by canal finder and trochanteric reamer. Cylindrical reaming was performed. Progressive broaching was then performed starting with a #10 broach and progressing final size, in a position of 10-15 degrees anteversion. [place] anteversion was within 5 degrees of stem position. The final size broach had excellent fit and fill of the patient's metaphysis and diaphysis. Calcar planing was performed. Trial reduction was then performed starting with appropriately sized femoral head and various neck extensions to evaluate stability, limb length equality, and soft tissue tension. Once these parameters were satisfactory, the corresponding final components were then called for. Trial components were removed. The femoral canal was sized for the centralizer and cement plug. Once the cement plug had been inserted distal to the planned length of the femoral component, the canal was pulse lavaged and brushed to remove any unstable bone. It was then dried with a lap sponge. Cement was mixed under vacuum conditions to decrease porosity and inserted into a cement gun. Distal centralizer was placed onto the femoral component with a bit of cement. The cement was allowed to reach a slightly doughy consistency and then the canal was filled retrograde with the cement gun. Thumb pressurization was performed three times. The femoral component was then inserted with the previously determined degree of anteversion. Excess cement was removed before it hardened completely. The femoral head was then impacted onto the [place] taper. Blood and debris were removed from the acetabular socket and the hip was then reduced and checked for stability, limb length and soft tissue tension. These parameters were found to be satisfactory; the wound was then thoroughly irrigated with normal saline. Final hemostasis was obtained using electrocautery and IV tranexamic acid, 1 gram prior to incision and another 1 gram at the start of closure. Closure of the capsule was performed meticulously using #3 Vicryl suture. Four [id number] sutures were placed in the posterior capsule along with repair of the external rotators. The fascia yun was then repaired using combination of #3 Vicryl suture in interrupted fashion and Quill and running fashion. 2-0 Vicryl suture was used for the subcutaneous tissues and 3-0 Quill for the skin. Dermabond or Steri-Strips were then applied. The patient tolerated the procedure well. There were no complications and the wound bed was dry and there was no need for drain placement. Sterile dressing was then applied and the patient was carefully removed from the operating room table, placed on the stretcher and was taken to the recovery room in stable condition. Sponge and needle counts were correct.
[2023-08-02] MEDS ORDERED: ONDANSETRON 4 MG/2 ML VIAL IVP PRN (15:34)
[2023-08-02] MEDS ORDERED: NALOXONE 0.4 MG/ML 1 ML VIAL IV PRN (15:34)
[2023-08-02] MEDS ORDERED: MIDAZOLAM 2 MG/2 ML VIAL IV PRN (15:42)
[2023-08-02] MEDS ORDERED: LIDOCAINE 1% (10MG/ML) FOR IV START INTRADERMA PRN (15:42)
[2023-08-02] MEDS ORDERED: HYDROmorphone 0.5 MG/0.5 ML SYRINGE IVP PRN (15:42)
--- NOTE | 2023-08-02 16:21 | XR ---
EXAMINATION TYPE: XR Hip Limited LT DATE OF EXAM: 08/02/2023 Comparison: 07/31/2023 Clinical History: 83-year-old male Status post hip surgery, assess surgical alignment Findings: Image shows placement of left hip hemiarthroplasty. Femoral stem component appears well-seated withou t prosthetic fracture. Alignment grossly anatomic. Soft tissue air related to recent operation. Osteo penia. Impression: Uncomplicated postoperative appearance left hip hemiarthroplasty.
[2023-08-02] MEDS: hydrALAZINE HCL 20 MG/ML 1 ML VIAL IVP PRN (18:00)
[2023-08-02] MEDS: METOPROLOL TARTRATE 5 MG/5 ML VIAL IVP ONE ×2 (18:34→18:48)
[2023-08-02] MEDS: LABETALOL 5 MG/ML VIAL MDV IVP ONE (19:00)
[2023-08-02] MEDS: LABETALOL 5 MG/ML VIAL MDV IVP STA (20:05)
[2023-08-02] MEDS: DEXAMETHASONE SOD PHOSPHATE 4 MG/ML 1 ML VIAL IV ONE (20:06)
[2023-08-02] MEDS: LACTATED RINGERS 1,000 ML IV SCH (20:07)
[2023-08-02] MEDS: ASPIRIN 81 MG PO SCH (20:25)
[2023-08-02] MEDS: SENNOSIDES-DOCUSATE SODIUM 1 EACH TAB PO SCH (20:25)
[2023-08-02] MEDS: ACETAMINOPHEN TAB 325 MG TAB PO PRN (22:25)
[2023-08-03] MEDS: FAMOTIDINE 20 MG TAB PO SCH (08:47)
[2023-08-03] MEDS: amLODIPine 10 MG TAB PO SCH (08:47)
--- NOTE | 2023-08-03 09:06 | P.PN ---
Subjective Progress Note Date: 08/03/23 Principal diagnosis: Status post left hip hemiarthroplasty This is an 83 year-old male post left hip hemiarthroplasty. This is post-op day 1. The patient was evaluated at the bedside today. The patient denies nausea, vomiting, abdominal pain, shortness of breath, and chest pain this morning. He states his pain is controlled at this time. The patient has not been up with p hysical therapy. Objective - Vital Signs Vital signs: Vital Signs Temp 98.6 F 08/02/23 20:00 Pulse 51 L 08/03/23 04:00 Resp 16 08/03/23 04:00 BP 205/82 08/03/23 04:00 Pulse Ox 96 08/03/23 04:00 FiO2 Intake & Output 08/02/23 08/03/23 08/03/23 18:59 06:59 18:59 Intake Total 1350 Output Total 75 400 216 Balance 1275 -400 -216 Intake: IV 1350 Output: Urine 400 150 Post Void Residual 66 Estimated Blood Loss 75 Other: # Voids 2 - Exam The patient does not appear in acute distress. Alert and orientated x3. D ressing is clean dry and intact. Incision appears fine with no erythema or active drainage. Calf is soft and nontender. Good foot and ankle motion without difficulty. Sensation and circulatory status is intact. - Labs CBC & Chem 7: 08/02/23 06:23 08/02/23 06:23 Assessment and Plan (1) Closed left hip fracture Current Visit: Yes Status: Acute Code(s): S72.002A - FRACTURE OF UNSP PART OF NECK OF LEFT FEMUR, INIT SNOMED Code(s): 430471819 (2) Fall Current Visit: Yes Status: Acute Code(s): W19.XXXA - UNSPECIFIED FALL, IN ITIAL ENCOUNTER SNOMED Code(s): 4964280 (3) Weakness Current Visit: Yes Status: Acute Code(s): R53.1 - WEAKNESS SNOMED Code(s): 76411817 (4) Hypertension Current Visit: Yes Status: Acute Code(s): I10 - ESSENTIAL (PRIMARY) HYPERTENSION SNOMED Code(s): 70878626 (5) Status post hip hemiarthroplasty Current Visit: Yes Status: Acute Code(s): Z96.649 - PRESENCE OF UNSPECIFIED ARTIFICIAL HIP JOINT SNOMED Code(s): 787285233 Plan: 1. Continue pain control 2. Anticoagulation with Aspirin 81mg BID 3. Start physical therapy and ambulation if cleared by internal medicine and cardiology 4. Discharge planning in progress.
[2023-08-03 09:32] LABS: Basophils # (A) 0.2 k/uL (0-0.2); Basophils % (A) 2 %; Eosinophils % (A) 0 %; HCT 38.2 % (39.0-53.0); HGB 12.2 gm/dL (13.0-17.5); Lymphocytes # (A) 0.3 k/uL (1.0-4.8); Lymphocytes % (A) 2 %; MCH 29.3 pg (25.0-35.0); MCV 91.6 fL (80.0-100.0); Mean Platelet Volume 9.9; Monocytes # (A) 0.6 k/uL (0-1.0); Monocytes % (A) 5 %; Neutrophils # (A) 10.8 k/uL (1.3-7.7); Neutrophils % (A) 90 %; Platelet Count 211 k/uL (150-450); RBC 4.17 m/uL (4.30-5.90); RDW 14.4 % (11.5-15.5)
[2023-08-03] MEDS: LISINOPRIL-HCTZ 10-12.5 MG 1 EACH TAB PO SCH (09:55)
[2023-08-03] MEDS: APIXABAN 2.5 MG TABLET PO SCH (09:55)
[2023-08-03 10:02] LABS: African American GFR (CKD) 39 (>60 ml/min/1.73 sqM); Anion Gap 9 mmol/L; Blood Urea Nitrogen 39 mg/dL (9-20); Calcium 7.9 mg/dL (8.4-10.2); Carbon Dioxide 18 mmol/L (22-30); Chloride 108 mmol/L (98-107); Glucose 158 mg/dL (74-99); Non-African American GFR(CKD) 33 (>60 ml/min/1.73 sqM); Sodium 135 mmol/L (137-145)
--- NOTE | 2023-08-03 10:40 | P.PN ---
Subjective Progress Note Date: 08/03/23 Reason for Consult (text): Elevated troponins, hemiarthroplasty History of present illness: History of present illness: This is an 83-year-old male with past medical history of hypertension, gastroesophageal reflux disease, daily alcohol intake. We have been asked to evaluate the patient for elevated troponins and hip hemiarthroplasty. Patient states that he was carrying a gallon of milk and lost his balance falling landing on his buttocks and had pain in the left hip. Patient has been seen by orthopedics and is planning for left hemiarthroplasty this afternoon. Patient states that the hip pain is fairly well-controlled. He denies having any chest pain, no shortness of breath. He denies having any history of TIA. No blood in the stools. He denies being told he had atrial fibrillation or atrial flutter. Patient normally follows at the [place] [facility]. Blood pressure readings noted to be labile with high reading at this time of 182/103 and as low as 120/68. Patient has been started on amlodipine 5 mg daily continue on Lopressor. Patient received 1 dose of labetalol 20 mg IV push yesterday. EKG sinus tachycardia Chest x-ray: No acute process Echocardiogram performed 08/01/2023 revealed technically difficult study with limited views. EF 50 to 55%. Wall motion abnormality cannot be commented upon. Severe biatrial dilatation. RVSP estimated at 45 mmHg. No pericardial effusion. WBC 9.5 initially 15.2. Hemoglobin 12.8. Platelet count 141. Sodium 136, potassium 4.6, chloride 110, CO2 20. Troponin 0.086, 0.072 and 0.06. proBNP 12,900. BUN 36 creatinine 1.65. Urinalysis with RBCs. Serum alcohol less than 10. Home cardiac medications:Lopressor 50 mg twice daily. 2/3 Yesterday, patient underwent left hip hemiarthroplasty. Blood pressure readings continue to be labile running between 128 systolic to 205 systolic. Attending has started the patient on lisinopril hydrochlorothiazide and increased amlodipine today. Telemetry is atrial flutter with controlled rate. Patient is currently on aspirin 81 mg twice daily for DVT prophylaxis. Cleared use of Eliquis with orthopedics and will be started today. Physical examination: Gen: This is a frail-appearing 83-year-old male, no acute distress VS: reviewed HEENT: Head is atraumatic, normocephalic. Pupils equal, round. Sclerae is anicteric. NECK: Supple. No JVD. LUNGS: Clear to auscultation. No wheezes or rhonchi. No intercostal retractions. HEART: Regular rate and rhythm. No murmur. ABDOMEN: Soft No tenderness. EXTREMITIES: No pedal edema. No calf tenderness. NEUROLOGICAL: Patient is awake, alert and oriented x3. Assessment: Left hip fracture status post left hip hemiarthroplasty 2/2 Paroxysmal atrial fibrillation/atrial flutter typical, new onset with rate control Hypertension, uncontrolled with component of pain causing labile blood pressure readings Elevated troponins most likely type II [place] Chronic kidney disease/acute kidney injury Thrombocytopenia Plan: Continue current antihypertensives Monitor blood pressure closely Pain management Patient will be started on Eliquis 2.5 mg twice daily, discontinue aspirin Further recommendations to follow based upon clinical course Nurse practitioner note has been reviewed, I agree with documented findings and plan of care. Patient was seen and examined. Objective - Vital Signs Vital signs: Vital Signs Temp 98.3 F 08/03/23 09:05 Pulse 102 H 08/03/23 09:05 Resp 16 08/03/23 09:05 BP 153/85 08/03/23 09:05 Pulse Ox 97 08/03/23 09:05 FiO2 Intake & Output 08/02/23 08/03/23 08/03/23 18:59 06:59 18:59 Intake Total 1350 Output Total 75 400 216 Balance 1275 -400 -216 Intake: IV 1350 Output: Urine 400 150 Post Void Residual 66 Estimated Blood Loss 75 Other: # Voids 2 - Labs CBC & Chem 7: 08/03/23 08:09 08/03/23 08:09
--- NOTE | 2023-08-03 12:24 | P.PN ---
Subjective Progress Note Date: 08/03/23 Subjective: Patient seen and examined at bedside. No acute events overnight. Has not ambulated yet. Pertinent positives and negatives as discussed above, a complete review of systems was performed and all other systems are negative. Vitals Signs Reviewed. General: nontoxic, no distress, appears at stated age Derm: warm, dry, dressing clean, dry, intact Head: atraumatic, normocephalic, symmetric Eyes: EOMI, no lid lag, anicteric sclera, pupils equal round reactive to light ENT: Nose and ears atraumatic Neck: No thyromegaly, supple Mouth: no lip lesion, mucus membranes moist Cardiovascular: S1S2 reg, no murmur, no edema Lungs: clear to auscultation bilateral, no rhonchi, no rales, no wheeze, no accessory muscle use Abdominal: soft, nontender to palpation, no guarding, no appreciable orga nomegaly Neuro: CN II-XII grossly intact Psych: Alert, oriented, appropriate affect Data Reviewed Today: Pertinent Labs: WBC 12.0, hemoglobin 12.2, creatinine 1.86 Imaging: EKG from yesterday afternoon independently interpreted, shows atrial flutter. Assessment and Plan: Acute left proximal femoral neck fracture status post surgery Presyncope Paroxysmal atrial flutter NSTEMI, likely nonischemic Chronic kidney disease stage III Uncontrolled hypertension, labile, also likely has a component of pain -Cardiology note reviewed, patient started on Eliquis 2.5 twice daily, aspirin discontinued -On telemetry -Echocardiogram showed LVEF of 50 to 55%, RVSP 45 -Pain control with oral Tylenol as needed, [place] as needed, IV Dilaudid as needed, monitor for sedation -Senna at night -As needed hydralazine -Amlodipine at 10 mg daily, also started on hydrochlorothiazide 12.5, lisinopril 10 Resolved: Leukocytosis Chronic: GERD Thank you for allowing us to participate in the care of this pleasant patient. Do not hesitate to contact us with questions. Someone can be reached from the [place] [facility] hospitalist group all hours of the day at [phone] or via perfect serve. Objective - Vital Signs Vital signs: Vital Signs Temp 98.3 F 08/03/23 09:05 Pulse 102 H 08/03/23 09:05 Resp 16 02/03/24 09:05 BP 153/85 08/03/23 09:05 Pulse Ox 97 08/03/23 09:05 FiO2 Intake & Output 08/02/23 08/03/23 08/03/23 18:59 06:59 18:59 Intake Total 1350 Output Total 75 400 216 Balance 1275 -400 -216 Intake: IV 1350 Output: Urine 400 150 Post Void Residual 66 Estimated Blood Loss 75 Other: Voiding Method Urinal # Voids 2 - Labs CBC & Chem 7: 08/03/23 08:09 08/03/23 08:09 Labs: Abnormal Lab Results - Last 24 Hours (Table) 08/03/23 08/03/23 Range/Units 08:09 08:09 WBC 12.0 H (3.8-10.6) k/uL RBC 4.17 L (4.30-5.90) m/uL Hgb 12.2 L (13.0-17.5) gm/dL Hct 38.2 L (39.0-53.0) % Neutrophils # 10.8 H (1.3-7.7) k/uL Lymphocytes # 0.3 L (1.0-4.8) k/uL Sodium 135 L (137-145) mmol/L Chloride 108 H (98-107) mmol/L Carbon Dioxide 18 L (22-30) mmol/L BUN 39 H (9-20) mg/dL Creatinine 1.86 H (0.66-1.25) mg/dL Glucose 158 H (74-99) mg/dL Calcium 7.9 L (8.4-10.2) mg/dL
--- NOTE | 2023-08-04 09:35 | P.PN ---
Subjective Progress Note Date: 08/04/23 Principal diagnosis: Status post left hip hemiarthroplasty This is an 83 year-old male post left hip hemiarthroplasty. This is post-op day 2. The patient was evaluated at the bedside today. The patient denies nausea, vomiting, abdominal pain, shortness of breath, and chest pain this morning. He states his pain is controlled at this time. The patient has been up with physi philomena therapy. Objective - Vital Signs Vital signs: Vital Signs Temp 97.7 F 08/03/23 20:00 Pulse 101 H 08/04/23 04:00 Resp 18 08/04/23 04:00 BP 108/66 08/04/23 04:00 Pulse Ox 96 08/04/23 08:31 FiO2 Intake & Output 08/03/23 08/04/23 08/04/23 18:59 06:59 18:59 Intake Total 456 Output Total 466 100 175 Balance -10 -100 -175 Intake: Oral 456 Output: Urine 400 100 175 Post Void Residual 66 Other: Voiding Method Urinal Urinal - Exam The patient does not appear in acute distress. Alert and orientated x3. Dressing is clean dry and intact. Incision appears fine with no erythema or active drainage. Calf is soft and nontender. Good foot and ankle motion without difficulty. Sensation and circulatory status is intact. - Labs CBC & Chem 7: 08/03/23 08:09 08/03/23 08:09 Labs: Abnormal Lab Results - Last 24 Hours (Table) 08/03/23 Range/Units 08:09 Sodium 135 L (137-145) mmol/L Chloride 108 H (98-107) mmol/L Carbon Dioxide 18 L (22-30) mmol/L BUN 39 H (9-20) mg/dL Creatinine 1.86 H (0.66-1.25) mg/dL Glucose 158 H (74-99) mg/dL Calcium 7.9 L (8.4-10.2) mg/dL Assessment and Plan (1) Closed left hip fracture Current Visit: Yes Status: Acute Code(s): S72.002A - FRACTURE OF UNSP PART OF NECK OF LEFT FEMUR, INIT SNOMED Code(s): 441997512 (2) Fall Current Visit: Yes Status: Acute Code(s): W19.XXXA - UNSPECIFIED FALL, INITIAL ENCOUNTER SNOMED Code(s): 3520726 (3) Weakness Current Visit: Yes Status: Acute Code(s): R53.1 - WEAKNESS SNOMED Code(s): 25463937 (4) Hypertension Current Visit: Yes Status: Acute Code(s): I10 - ESSENTIAL (PRIMARY) HYPERTENSION SNOMED Code(s): 92584722 (5) Status post hip hemiarthroplasty Current Visit: Yes Status: Acute Code(s): Z96.649 - PRESENCE OF UNSPECIFIED ARTIFICIAL HIP JOINT SNOMED Code(s): 947757216 Plan: 1. Continue pain control 2. Anticoagulation with Eliquis per cardiology 3. Continue physical therapy and ambulation 4. Discharge planning in progress.
[2023-08-04] MEDS: SENNOSIDES-DOCUSATE SODIUM 1 EACH TAB PO SCH (09:36)
--- NOTE | 2023-08-04 10:07 | P.PN ---
Subjective Progress Note Date: 08/04/23 Subjective: Patient seen and examined at bedside. No acute events overnight. Did get up with physical therapy. Pertinent positives and negatives as discussed above, a complete review of systems was performed and all other systems are negative. Vitals Signs Reviewed. General: nontoxic, no distress, appears at stated age Derm: warm, dry, dressing clean, dry, intact Head: atraumatic, normocephalic, symmetric Eyes: EOMI, no lid lag, anicteric sclera, pupils equal round reactive to light ENT: Nose and ears atraumatic Neck: No thyromegaly, supple Mouth: no lip lesion, mucus membranes moist Cardiovascular: S1S2 reg, no murmur, no edema Lungs: clear to auscultation bilateral, no rhonchi, no rales, no wheeze, no accessory muscle use Abdominal: soft, nontender to palpation, no guarding, no appreciable organomegaly Neuro: CN II-XII grossly intact Psych: Alert, oriented, appropriate affect Data Reviewed Today: Pertinent Labs: CBC and BMP pending, will be reviewed when available Imaging: No new imaging Assessment and Plan: Acute left proximal femoral neck fracture status post surgery Leukocytosis, anticipated outcome of surgery Presyncope Paroxysmal atrial flutter NSTEMI, likely nonischemic Chronic kidney disease stage III Uncontrolled hypertension, labile, also likely has a component of pain -Cardiology note reviewed, patient started on Eliquis 2.5 twice daily, aspirin discontinued -On telemetry -Echocardiogram showed LVEF of 50 to 55%, RVSP 45 -Pain control with oral Tylenol as needed, [place] as needed, IV Dilaudid as needed, monitor for sedation -Senna at night -As needed hydralazine -Amlodipine at 10 mg daily, hydrochlorothiazide 12.5, lisinopril 10 Chronic: GERD Physical therapy recommending inpatient rehab. Otherwise patient is medically optimized for discharge Thank you for allowing us to participate in the care of this pleasant patient. Do not hesitate to contact us with questions. Someone can be reached from the [facility] hospitalist group all hours of the day at [phone] or via perfect serve. Objective - Vital Signs Vital signs: Vital Signs Temp 98.8 F 08/04/23 09:30 Pulse 77 08/04/23 09:30 Resp 20 08/04/23 09:30 BP 149/78 08/04/23 09:30 Pulse Ox 94 L 08/04/23 09:30 FiO2 Intake & Output 08/03/23 08/04/23 08/04/23 18:59 06:59 18:59 Intake Total 456 118 Output Total 466 100 175 Balance -10 -100 -57 Intake: Oral 456 118 Output: Urine 400 100 175 Post Void Residual 66 Other: Voiding Method Urinal Urinal - Labs CBC & Chem 7: 08/03/23 08:09 08/03/23 08:09
[2023-08-04 11:10] LABS: African American GFR (CKD) 33 (>60 ml/min/1.73 sqM); Anion Gap 7 mmol/L; Blood Urea Nitrogen 41 mg/dL (9-20); Calcium 7.6 mg/dL (8.4-10.2); Carbon Dioxide 19 mmol/L (22-30); Chloride 110 mmol/L (98-107); Glucose 103 mg/dL (74-99); Non-African American GFR(CKD) 29 (>60 ml/min/1.73 sqM); Sodium 136 mmol/L (137-145)
--- NOTE | 2023-08-04 11:11 | P.PN ---
Subjective Progress Note Date: 08/04/23 Reason for Consult (text): Elevated troponins, hemiarthroplasty History of present illness: History of present illness: This is an 83-year-old male with past medical history of hypertension, gastroesophageal reflux disease, daily alcohol intake. We have been asked to evaluate the patient for elevated troponins and hip hemiarthroplasty. Patient states that he was carrying a gallon of milk and lost his balance falling landing on his buttocks and had pain in the left hip. Patient has been seen by orthopedics and is planning for left hemiarthroplasty this afternoon. Patient states that the hip pain is fairly well-controlled. He denies having any chest pain, no shortness of breath. He denies having any history of TIA. No blood in the stools. He denies being told he had atrial fibrillation or atrial flutter. [facility]. Blood pressure readings noted to be labile with high reading at this time of 182/103 and as low as 120/68. Patient has been started on amlodipine 5 mg daily continue on Lopressor. Patient received 1 dose of labetalol 20 mg IV push yesterday. EKG sinus tachycardia Chest x-ray: No acute process Echocardiogram performed 08/01/2023 revealed technically difficult study with limited views. EF 50 to 55%. Wall motion abnormality cannot be commented upon. Severe biatrial dilatation. RVSP estimated at 45 mmHg. No pericardial effusion. WBC 9.5 initially 15.2. Hemoglobin 12.8. Platelet count 141. Sodium 136, potassium 4.6, chloride 110, CO2 20. Troponin 0.086, 0.072 and 0.06. proBNP 12,900. BUN 36 creatinine 1.65. Urinalysis with RBCs. Serum alcohol less than 10. Home cardiac medications:Lopressor 50 mg twice daily. 08/03 Yesterday, patient underwent left hip hemiarthroplasty. Blood pressure readings continue to be labile running between 128 systolic to 205 systolic. Attending has started the patient on lisinopril hydrochlorothiazide and increased amlodipine today. Telemetry is atrial flutter with controlled rate. Patient is currently on aspirin 81 mg twice daily for DVT prophylaxis. Cleared use of Eliquis with orthopedics and will be started today. 08/04 Yesterday, patient was started on Eliquis 2.5 mg twice daily, reduced dose due to age and renal function. Heart rate is in the 70s to 100, blood pressure 108/66, pulse ox 91% on room air. Telemetry is atrial flutter, rate controlled. Patient is waiting for rehab. Physical examination: Gen: This is a frail-appearing 83-year-old male, no acute distress VS: reviewed HEENT: Head is atraumatic, normocephalic. Pupils equal, round. Sclerae is anicteric. NECK: Supple. No JVD. LUNGS: Clear to auscultation. No wheezes or rhonchi. No intercostal retractions. HEART: Regular rate and rhythm. No murmur. ABDOMEN: Soft No tenderness. EXTREMITIES: No pedal edema. No calf tenderness. NEUROLOGICAL: Patient is awake, alert and oriented x3. Assessment: Left hip fracture status post left hip hemiarthroplasty 2/2 Paroxysmal atrial fibrillation/atrial flutter typical, new onset with rate control Hypertension, uncontrolled with component of pain causing labile blood pressure readings Elevated troponins most likely type II [place] Chronic kidney disease/acute kidney injury Thrombocytopenia Plan: Continue current antihypertensives Monitor blood pressure closely Pain management Patient will be started on Eliquis 2.5 mg twice daily, discontinue aspirin Patient is waiting to go to subacute rehab. Cardiology will sign off this case and follow on an as-needed basis. Please reconsult for any new concerns. Patient may follow-up in the office in one to 2 weeks. Nurse practitioner note has been reviewed, I agree with documented findings and plan of care. Patient was seen and examined. Objective - Vital Signs Vital signs: Vital Signs Temp 97.7 F 08/03/23 20:00 Pulse 101 H 08/04/23 04:00 Resp 18 08/04/23 04:00 BP 108/66 08/04/23 04:00 Pulse Ox 96 08/04/23 08:31 FiO2 Intake & Output 08/03/23 08/04/23 08/04/23 18:59 06:59 18:59 Intake Total 456 Output Total 466 100 175 Balance -10 -100 -175 Intake: Oral 456 Output: Urine 400 100 175 Post Void Residual 66 Other: Voiding Method Urinal Urinal - Labs CBC & Chem 7: 08/03/23 08:09 08/03/23 08:09 Labs: Abnormal Lab Results - Last 24 Hours (Table) 08/03/23 08/03/23 Range/Units 08:09 08:09 WBC 12.0 H (3.8-10.6) k/uL RBC 4.17 L (4.30-5.90) m/uL Hgb 12.2 L (13.0-17.5) gm/dL Hct 38.2 L (39.0-53.0) % Neutrophils # 10.8 H (1.3-7.7) k/uL Lymphocytes # 0.3 L (1.0-4.8) k/uL Sodium 135 L (137-145) mmol/L Chloride 108 H (98-107) mmol/L Carbon Dioxide 18 L (22-30) mmol/L BUN 39 H (9-20) mg/dL Creatinine 1.86 H (0.66-1.25) mg/dL Glucose 158 H (74-99) mg/dL Calcium 7.9 L (8.4-10.2) mg/dL
[2023-08-04 11:12] LABS: Potassium 4.4 mmol/L (3.5-5.1)
[2023-08-04 11:17] LABS: Basophils % (A) 0 %; Eosinophils # (A) 0.1 k/uL (0-0.7); Eosinophils % (A) 1 %; HCT 31.2 % (39.0-53.0); HGB 10.1 gm/dL (13.0-17.5); Lymphocytes # (A) 0.7 k/uL (1.0-4.8); Lymphocytes % (A) 6 %; MCH 29.3 pg (25.0-35.0); MCHC 32.3 g/dL (31.0-37.0); MCV 90.9 fL (80.0-100.0); Mean Platelet Volume 9.7; Monocytes # (A) 0.7 k/uL (0-1.0); Monocytes % (A) 6 %; Neutrophils # (A) 10.3 k/uL (1.3-7.7); Neutrophils % (A) 86 %; Platelet Count 220 k/uL (150-450); RBC 3.44 m/uL (4.30-5.90); RDW 14.8 % (11.5-15.5)
[2023-08-04] MEDS: MAGNESIUM HYDROXIDE 2,400 MG/30 ML CUP PO PRN (22:42)
[2023-08-05 06:25] LABS: Basophils % (A) 0 %; Eosinophils # (A) 0.1 k/uL (0-0.7); Eosinophils % (A) 1 %; HCT 28.1 % (39.0-53.0); HGB 9.6 gm/dL (13.0-17.5); Lymphocytes % (A) 10 %; MCH 30.4 pg (25.0-35.0); MCHC 34.2 g/dL (31.0-37.0); MCV 88.9 fL (80.0-100.0); Mean Platelet Volume 9.7; Monocytes # (A) 0.6 k/uL (0-1.0); Monocytes % (A) 6 %; Neutrophils % (A) 81 %; Platelet Count 172 k/uL (150-450); RBC 3.16 m/uL (4.30-5.90)
[2023-08-05 06:46] LABS: African American GFR (CKD) 37 (>60 ml/min/1.73 sqM); Anion Gap 4 mmol/L; Blood Urea Nitrogen 38 mg/dL (9-20); Calcium 7.4 mg/dL (8.4-10.2); Carbon Dioxide 20 mmol/L (22-30); Chloride 111 mmol/L (98-107); Glucose 110 mg/dL (74-99); Non-African American GFR(CKD) 32 (>60 ml/min/1.73 sqM); Potassium 4.1 mmol/L (3.5-5.1); Sodium 135 mmol/L (137-145)
[2023-08-05] MEDS: lisinopriL 10 MG TAB PO SCH (09:24)
--- NOTE | 2023-08-05 10:32 | P.PN ---
Subjective Progress Note Date: 08/05/23 Subjective: Patient seen and examined at bedside. No acute events overnight. Pending rehab Pertinent positives and negatives as discussed above, a complete review of systems was performed and all other systems are negative. Vitals Signs Reviewed. General: nontoxic, no distress, appears at stated age Derm: warm, dry, dressing clean, dry, intact Head: atraumatic, normocephalic, symmetric Eyes: EOMI, no lid lag, anicteric sclera, pupils equal round reactive to light ENT: Nose and ears atraumatic Neck: No thyromegaly, supple Mouth: no lip lesion, mucus membranes moist Cardiovascular: S1S2 reg, no murmur, no edema Lungs: clear to auscultation bilateral, no rhonchi, no rales, no wheeze, no acce ssory muscle use Abdominal: soft, nontender to palpation, no guarding, no appreciable organomegaly Neuro: CN II-XII grossly intact Psych: Alert, oriented, appropriate affect Data Reviewed Today: Pertinent Labs: WBC 10, hemoglobin 9.6, creatinine 1.93 Imaging: No new imaging Assessment and Plan: Acute left proximal femoral neck fracture status post surgery Leukocytosis, anticipated outcome of surgery, resolved Acute blood loss anemia, anticipated outcome of surgery Presyncope Paroxysmal atrial flutter NSTEMI, likely nonischemic Chronic kidney disease stage III Uncontrolled hypertension, labile, also likely has a component of pain -Cardiology following, patient was started on Eliquis 2.5 twice daily -On telemetry -Echocardiogram showed LVEF of 50 to 55%, RVSP 45 -Pain control with oral Tylenol as needed, [place] as needed, IV Dilaudid as needed, monitor for sedation -Senna at night -As needed hydralazine -Amlodipine at 10 mg daily, lisinopril 10, and hydrochlorothiazide discontinued -Renal function stable Chronic: GERD Patient is medically optimized for discharge, pending rehab bed availability. Thank you for allowing us to participate in the care of this pleasant patient. Do not hesitate to contact us with questions. Someone can be reached from the [facility] hospitalist group all hours of the day at [phone] or via perfect serve. Objective - Vital Signs Vital signs: Vital Signs Temp 98.1 F 08/05/23 08:06 Pulse 102 H 08/05/23 08:06 Resp 20 08/05/23 08:06 BP 193/78 08/05/23 08:06 Pulse Ox 93 L 08/05/23 08:06 FiO2 Intake & Output 08/04/23 08/05/23 08/05/23 18:59 06:59 18:59 Intake Total 118 Output Total 475 300 500 Balance -431 -179 -584 Intake: Oral 118 Output: Urine 475 300 500 Other: Voiding Method Urinal Urinal Urinal - Labs CBC & Chem 7: 08/05/23 05:30 08/05/23 05:30 Labs: Abnormal Lab Results - Last 24 Hours (Table) 08/04/23 08/04/23 08/05/23 Range/Units 09:38 09:38 05:30 WBC 12.0 H (3.8-10.6) k/uL RBC 3.44 L 3.16 L (4.30-5.90) m/uL Hgb 10.1 L 9.6 L (13.0-17.5) gm/dL Hct 31.2 L 28.1 L (39.0-53.0) % Neutrophils # 10.3 H 8.0 H (1.3-7.7) k/uL Lymphocytes # 0.7 L (1.0-4.8) k/uL Sodium 136 L (137-145) mmol/L Chloride 110 H (98-107) mmol/L Carbon Dioxide 19 L (22-30) mmol/L BUN 41 H (9-20) mg/dL Creatinine 2.11 H (0.66-1.25) mg/dL Glucose 103 H (74-99) mg/dL Calcium 7.6 L (8.4-10.2) mg/dL 08/05/23 Range/Units 05:30 WBC (3.8-10.6) k/uL RBC (4.30-5.90) m/uL Hgb (13.0-17.5) gm/dL Hct (39.0-53.0) % Neutrophils # (1.3-7.7) k/uL Lymphocytes # (1.0-4.8) k/uL Sodium 135 L (137-145) mmol/L Chloride 111 H (98-107) mmol/L Carbon Dioxide 20 L (22-30) mmol/L BUN 38 H (9-20) mg/dL Creatinine 1.93 H (0.66-1.25) mg/dL Glucose 110 H (74-99) mg/dL Calcium 7.4 L (8.4-10.2) mg/dL
--- NOTE | 2023-08-05 15:15 | P.DS ---
Providers Date of admission: 07/31/23 18:06 Expected date of discharge: 08/05/23 Attending physician: Forrest oRss Consults: 07/31/23 18:04 Consult Physician Routine Consulting Provider: Anuradha Lew Consult Reason/Comments: [employer] Do you want consulting provider notified?: Yes 08/01/23 08:22 Consult Physician Routine Consulting Provider: Babak Elizabeth Consult Reason/Comments: elevated trop, hip fracture Do you want consulting provider notified?: Yes Primary care physician: [facility] Clinic - Discharge Diagnosis(es) (1) Closed left hip fracture Current Visit: Yes Status: Acute (2) Status post hip hemiarthroplasty Current Visit: Yes Status: Acute Hospital Course: This is an 83-year-old male who presented on 07/31/2023 after falling and sustaining injury to the left hip. On exam and x-ray in the emergency department she was found to have a hip fracture. The pt is admitted to our service for surgical intervention and care. The patient is taken to surgery for hemiarthroplasty of the right hip. The procedure is performed without complication or sequelae. The patient is doing well postoperatively. Vital signs are stable on postop day #4. There are no new complaints or concerns. The patient is discharged to inpatient rehab pending medical clearance today. [facility] for accurate list of medications. Patient Condition at Discharge: Fair Plan - Discharge Summary New Discharge Prescriptions: New Apixaban [Eliquis] 2.5 mg PO BID #90 tab HYDROcodone/APAP 5-325MG [[place] 5] 1 - 2 each PO Q6HR PRN #32 tab PRN Reason: Pain Sennosides-Docusate Sodium [Senokot-S] 1 tab PO BID #60 tablet amLODIPine [Norvasc] 10 mg PO DAILY #60 tab lisinopriL [Zestril] 10 mg PO DAILY #60 tab Continue Albuterol Sulfate [Proair Hfa] 1 puff INHALATION RT-Q6H PRN PRN Reason: Shortness Of Breath Cholecalciferol [Vitamin D3 (25 Mcg = 1000 Iu)] 50 mcg PO DAILY Omeprazole 20 mg PO DAILY Metoprolol Tartrate [Lopressor] 50 mg PO BID Discharge Medication List Albuterol Sulfate [Proair Hfa] 1 puff INHALATION RT-Q6H PRN 11/09/21 [History] Cholecalciferol [Vitamin D3 (25 Mcg = 1000 Iu)] 50 mcg PO DAILY 07/31/23 [History] Metoprolol Tartrate [Lopressor] 50 mg PO BID 07/31/23 [History] Omeprazole 20 mg PO DAILY 07/31/23 [History] Apixaban [Eliquis] 2.5 mg PO BID #90 tab 08/05/23 [Rx] HYDROcodone/APAP 5-325MG [[place] 5] 1 - 2 each PO Q6HR PRN #32 tab 08/05/23 [Rx] Sennosides-Docusate Sodium [Senokot-S] 1 tab PO BID #60 tablet 08/05/23 [Rx] amLODIPine [Norvasc] 10 mg PO DAILY #60 tab 08/05/23 [Rx] lisinopriL [Zestril] 10 mg PO DAILY #60 tab 08/05/23 [Rx] Follow up Appointment(s)/Referral(s): Radha Herrera, PAC [PHYSICIAN TECHNICAL PROJECT MANAGER] - 3 Weeks [facility], [NON-STAFF] - As Needed [facility],Clinic [Primary Care Provider] - 1-2 days Activity/Diet/Wound Care/Special Instructions: May bear wt as tolerated w walker. Remove Optifoam dressing 7 days post op. May shower. Discharge Disposition: TRANSFER TO SNF/ECF
[2023-08-06 08:04] VITALS: RESP 19; TEMP 98.1
[2023-08-06] MEDS ORDERED: HYDROcodone/APAP 7.5-325MG 1 EACH TAB PO PRN ×2 (08:14)
--- NOTE | 2023-08-06 11:38 | P.PN ---
Subjective Progress Note Date: 08/06/23 Subjective: Patient seen and examined at bedside. No acute events overnight. Pertinent positives and negatives as discussed above, a complete review of systems was performed and all other systems are negative. Vitals Signs Reviewed. General: nontoxic, no distress, appears at stated age Derm: warm, dry, dressing clean, dry, intact Head: atraumatic, normocephalic, symmetric Eyes: EOMI, no lid lag, anicteric sclera, pupils equal round reactive to light ENT: Nose and ears atraumatic Neck: No thyromegaly, supple Mouth: no lip lesion, mucus membranes moist Cardiovascular: S1S2 reg, no murmur, no edema Lungs: clear to auscultation bilateral, no rhonchi, no rales, no wheeze, no accessory muscle use Abdominal: soft, nontender to palpation, no guarding, no appreciable organomegaly Neuro: CN II-XII grossly intact Psych: Alert, oriented, appropriate affect Data Reviewed Today: Pertinent Labs: No new labs Imaging: No new imaging Assessment and Plan: Acute left proximal femoral neck fracture status post surgery Leukocytosis, anticipated outcome of surgery, resolved Acute blood loss anemia, anticipated outcome of surgery Presyncope Paroxysmal atrial flutter NSTEMI, likely nonischemic Chronic kidney disease stage III Uncontrolled hypertension, labile, also likely has a component of pain -Cardiology following, patient was started on Eliquis 2.5 twice daily -On telemetry -Echocardiogram showed LVEF of 50 to 55%, RVSP 45 -Pain control with oral Tylenol as needed, [place] as needed, IV Dilaudid as needed, monitor for sedation -[place] at night -As needed hydralazine -Amlodipine at 10 mg daily, lisinopril 10, and hydrochlorothiazide discontinued -Renal function stable Chronic: GERD Patient is medically optimized for discharge. Thank you for allowing us to participate in the care of this pleasant patient. Do not hesitate to contact us with questions. Someone can be reached from the [facility] hospitalist group all hours of the day at [phone] or via perfect serve. Objective - Vital Signs Vital signs: Vital Signs Temp 98.1 F 08/06/23 07:05 Pulse 99 08/06/23 07:05 Resp 19 08/06/23 07:05 BP 152/84 08/06/23 07:05 Pulse Ox 96 08/06/23 07:05 FiO2 Intake & Output 08/05/23 08/06/23 08/06/23 18:59 06:59 18:59 Output Total 500 500 Balance -500 -500 Output: Urine 500 500 Other: Voiding Method Urinal Urinal # Voids 1 # Bowel Movements 1 - Labs CBC & Chem 7: 08/05/23 05:30 08/05/23 05:30
[2023-08-10 09:21] VITALS: BP 188/98; PULSE 66
== END 2023-08-06 11:49 | DRG 521 ==
LOC: EC 15:20 → 3SCARD 18:06 → 4SSUR 08-01 12:36 → 3SCARD 08-01 18:27 → 4SSUR 08-04 23:17
PROVIDERS: ADMIT Orthopaedic Surgery; ATTEND Orthopaedic Surgery
PROC: 0SRS0J9 Replacement of Left Hip Joint, Femoral Surface with Synthetic Substitute, Cemented, Open Approach (ICD-10-PCS; principal; 2023-08-02 13:30)
DX: S72.002A Fracture of unspecified part of neck of left femur, initial encounter for closed fracture (principal); I21.A1 Myocardial infarction type 2; I48.3 Typical atrial flutter; N17.9 Acute kidney failure, unspecified; Z91.81 History of falling; I12.9 Hypertensive chronic kidney disease with stage 1 through stage 4 chronic kidney disease, or unspecified chronic kidney disease; D72.829 Elevated white blood cell count, unspecified; D69.6 Thrombocytopenia, unspecified; I48.0 Paroxysmal atrial fibrillation; K22.70 Barrett's esophagus without dysplasia; J45.909 Unspecified asthma, uncomplicated; K21.9 Gastro-esophageal reflux disease without esophagitis; N18.30 Chronic kidney disease, stage 3 unspecified; W05.0XXA Fall from non-moving wheelchair, initial encounter; Z79.899 Other long term (current) drug therapy; Z79.01 Long term (current) use of anticoagulants; Z87.01 Personal history of pneumonia (recurrent)
CPT/HCPCS: 36415; 71045; 73501; 73502; 80048; 80053; 80320; 81001; 83605; 83735; 83880; 84100; 84484; 85025; 85610; 85730; 93005; 93306; 94760; 96361; 96374; 96375; 96376; 99285